=== PATIENT | female | born 1950 | race Two or more races ===

== ENCOUNTER 2019-10-27 13:36 | Outpatient (CLI) | payer OTHER, SELFPAY ==
--- NOTE | ~2019-10-27 | US_ITS ---
EXAMINATION: US renal BI DATE: 10/27/2019 14:37 INDICATION: Incontinence, kidney stones TECHNIQUE: Multiple grayscale and Doppler ultrasound images of the kidneys were obtained. COMPARISON: CT, 09/12/2019 FINDINGS: The right kidney measures 10.0 x 5.7 x 6.3 cm. The left kidney measures 11.3 x 5.7 x 6.8 cm and contains a 1.4 cm cyst. The kidneys demonstrate normal parenchymal echogenicity. There is no hyd ronephrosis. The bladder is normal. IMPRESSION: 1. Normal kidneys without hydronephrosis. Reviewed, dictated and finalized at location A. [facility]
== END 2019-10-27 13:37 | disposition home or self-care (01) ==
LOC: ANHIMG 13:42
PROVIDERS: PCP Student in an Organized Health Care Education/Training Program; Visit Provider Student in an Organized Health Care Education/Training Program
DX: R32 Unspecified urinary incontinence (principal); N20.0 Calculus of kidney
CPT/HCPCS: 76775

== ENCOUNTER 2019-10-27 14:51 | Outpatient (CLI) | payer OTHER, SELFPAY ==
--- NOTE | ~2019-10-27 | MM_ITS ---
EXAMINATION: MM screening skylar BI w kenia HISTORY: Screening mammogram TECHNIQUE: Craniocaudal and mediolateral oblique 3-D tomosynthesis images were obtained and synthetic 2-D images were generated. CAD analysis was submitted and interpreted. COMPARISON: Comparison to multiple prior studies sequentially, with oldest reviewed study dated 11/2015. BREAST PARENCHYMAL COMPOSITION: There are scattered areas of fibroglandular density. FINDINGS: There is no evidence of suspicious mass, calcification, or architectural distortion to sugg est malignancy in either breast. There has been no suspicious interval change. IMPRESSION: 1. No mammographic evidence of malignancy. 2. Recommend routine screening mammography in one year. BI-RADS Category 1: Negative Reviewed, dictated and finalized at location A. MENT MASON
== END 2019-10-27 14:52 | disposition home or self-care (01) ==
LOC: ANHIMG 14:55
PROVIDERS: PCP Student in an Organized Health Care Education/Training Program; Visit Provider Advanced Practice Midwife
DX: Z12.31 Encounter for screening mammogram for malignant neoplasm of breast (principal)
CPT/HCPCS: 76775; 77063; 77067

== ENCOUNTER 2019-11-24 12:54 | Outpatient (CLI) | payer OTHER, SELFPAY ==
--- NOTE | ~2019-11-24 | MR_ITS ---
EXAMINATION: MR lumbar spine wo con DATE: 11/24/2019 14:27 INDICATION: Chronic bilateral low back pain without sciatica. TECHNIQUE: Magnetic resonance imaging (MRI) of the lumbar spine was performed without intravenous con trast. Sequences included sagittal T2-weighted FSE, sagittal STIR FSE, sagittal T1-weighted FSE, and axial T2-weighted FSE. COMPARISON: Lumbar spine MRI 06/25/2015 FINDINGS: There is 7 degrees levocurvature of thoracolumbar spine. There is 3 mm anterolisthesis of L 3 on L4. There is severely decreased disc height from T10-T11 through L2-L3, moderately decreased dis c height at L3-L4, and severely decreased disc height at L5-S1. There is endplate remodeling at all l evels. The distal spinal cord signal intensity is normal. The conus medullaris is at L1-L2. The follo wing disc levels are specifically discussed: L1-L2: The disc is bulging. There is mild bilateral facet joint osteoarthritis. There is mild bilater al neural foraminal stenosis. There is mild central canal stenosis. L2-L3: The disc is bulging. There is mild bilateral facet joint osteoarthritis. There is mild bilater al neural foraminal stenosis. There is mild central canal stenosis. L3-L4: The disc is bulging and has an annular fissure. There is severe bilateral facet joint osteoart hritis. There is mild bilateral neural foraminal stenosis. There is mild central canal stenosis. L4-L5: The disc is bulging. There is mild right and moderate left facet joint osteoarthritis. There i s moderate bilateral neural foraminal stenosis. There is mild central canal stenosis. L5-S1: The disc is bulging and has an annular fissure. There is severe bilateral facet joint osteoart hritis. There is moderate bilateral neural foraminal stenosis. There is mild central canal stenosis. IMPRESSION: 1. Severe lumbar spondylosis, worsened from 06/25/2015. Reviewed, dictated and finalized at location A.
== END 2019-11-24 12:55 | disposition home or self-care (01) ==
PROVIDERS: PCP Student in an Organized Health Care Education/Training Program; Visit Provider Student in an Organized Health Care Education/Training Program
DX: M54.5 Low back pain (principal); G89.29 Other chronic pain; M47.816 Spondylosis without myelopathy or radiculopathy, lumbar region
CPT/HCPCS: 72148

== ENCOUNTER 2020-03-01 23:03 | Inpatient (IN) | payer OTHER, SELFPAY ==
--- NOTE | ~2020-03-01 | CT_ITS ---
EXAMINATION: CT abdomen pelvis w con DATE: 03/02/2020 01:31 INDICATION: Upper abdominal pain. Nausea. TECHNIQUE: Computed tomography (CT) of the abdomen and pelvis was performed with 100 mL Omnipaque-350 intravenous contrast. Automated exposure control and iterative reconstruction technique were employe d. The dose-length product was 991.56 mGy-cm. COMPARISON: 09/12/2019 FINDINGS: Respiratory motion which mildly limits evaluation at the lung bases and upper abdomen. Mild cardiomeg claire. No pericardial or pleural effusion. Gallbladder is surgically absent. Liver, spleen, bilateral adrenal glands and left kidney are normal. 5 mm low-attenuation cyst at the lower pole of the right k idney. Fatty atrophy of the pancreas. The appendix is not visualized. No pericecal inflammatory kurtz e to suggest acute appendicitis. There are a few diverticula predominantly along the descending colon without adjacent inflammatory change to suggest diverticulitis. No bowel obstruction. Calcified uter ine fibroids. Bladder and bilateral adnexa are unremarkable. No free intraperitoneal gas or fluid. No pathologically enlarged abdominal or pelvic lymphadenopathy. Tiny fat-containing umbilical hernia. S evere thoracolumbar spondylosis. Subcutaneous heterotopic ossification at both buttocks likely relate d to chronic fat necrosis. IMPRESSION: 1. No acute intra-abdominal/pelvic process. 2. Mild cardiomegaly. 3. Fibroid uterus. 4. Mild diverticulosis. Reviewed, dictated and finalized at location A.
[2020-03-01 23:03] VITALS: BP 123/97; PULSE 64; RESP 23; TEMP 36.4; O2SAT 98
[2020-03-01 23:21] LABS: Basophils Percent Auto 0.2 % (0.2-1.2); Eosinophils Absolute Auto 0.1 K/mm3 (0-0.3); Eosinophils Percent Auto 0.6 % (0-4.4); Hemoglobin 13.7 g/dL (12.0-15.0); Immature Granulocyte Absolute 0.06 K/mm3 (0.00-0.031); Immature Granulocyte Percent A 0.5 % (0-0.5); Lymphocytes Absolute Auto 1.93 K/mm3 (0.9-3.2); Lymphocytes Percent Auto 17.6 % (18.3-44.2); Mean Corpuscular HGB Conc 36.1 g/dl (32-36); Mean Corpuscular Hemoglobin 31.6 pg (26-34); Mean Corpuscular Volume 87.6 fl (80-100); Mean Platelet Volume 9.7 fl (7.4-10.4); Monocytes Absolute Auto 1.2 K/mm3 (0.1-0.6); Monocytes Percent Auto 10.6 % (2.6-8.5); Neutrophils Absolute Auto 7.7 K/mm3 (1.3-6.7); Neutrophils Percent Auto 70.5 % (45.5-73.1); Platelet Count Result 282 k/mm3 (150-375); Red Blood Count 4.34 M/mm3 (4.2-5.4); Red Cell Distribution Width 12.2 % (11.5-14.5)
[2020-03-01 23:33] LABS: Alanine Aminotransferase 25 U/L (4-35); Albumin Level 4.6 g/dL (3.5-5.1); Alkaline Phosphatase 91 U/L (38-126); Aspartate Amino Transferase 28 U/L (14-36); Bilirubin,Total 0.8 mg/dL (0.2-1.3); Blood Urea Nitrogen 8 mg/dL (7-17); Calcium 8.8 mg/dL (8.4-10.2); Carbon Dioxide 23 mmol/L (22-30); Chloride 87 mmol/L (98-107); Estimated Glomerular Filt Rate > 60; Glucose 132 mg/dL (65-105); Lipase 71 U/L (23-300); Potassium 3.3 mmol/L (3.4-5.0); Sodium 123 mmol/L (137-145)
[2020-03-01 23:42] LABS: Add Urine Microscopic? YES; Appearance Urine Clear (Clear); Bilirubin Urine Negative (Negative); Blood Urine 2+ (Negative); Color Urine Colorless (Yellow); Glucose Urine UA Negative (Negative); Ketones Urine Trace mg/dL (Negative); Leukocyte Esterase Ur Negative LEU/UL (Negative); Nitrate Urine Negative (Negative); Protein Urine Negative (Negative); Specific Grav Ur 1.006 (1.001-1.035); Urobilinogen Urine Negative mg/dL (<2.0); WBC Urine 0-3 /hpf
[2020-03-02] VITALS (13 sets, daily range): BP systolic 121–184; BP diastolic 48–87; PULSE 44–68; RESP 14–37; TEMP 36.1–36.8; O2SAT 96–99; BMI 33.3
--- NOTE | 2020-03-02 00:03 | ECG_ITS ---
Measurements Intervals [place] Rate: 57 P: 12 LA: 163 QRS: -38 QRSD: 102 T: 14 QT: 375 QTc: 366 Interpretive Statements SINUS BRADYCARDIA WITH SINUS ARRHYTHMIA LEFT AXIS DEVIATION VOLTAGE CRITERIA FOR LVH POOR R WAVE PROGRESSION, ANTERIOR LEADS NONSPECIFIC T-WAVE ABNORMALITY- INFERIOR LEADS BASELINE ARTIFACT- I, II, III, AVR, AVL, AVF BORDERLINE ECG Electronically Signed On 03-02-2020 8:10:39 CDT by Rome Koch D.O.
--- NOTE | 2020-03-02 00:04 | ED.ABDPAIN ---
HPI - Abdominal Pain General Chief Complaint: Abdominal Pain Stated Complaint: abd pain/ nausea Time Seen by Provider: 03/01/20 23:42 Source: patient and family Limitations: language barrier (mozambican) History of Present Illness HPI narrative: This patient is a 70 year old female who presents for evaluation of nausea, vomiting and epigastric abdominal pain. PAtient is Khmer and she does not speak Albanian so patient's son is at bedside translating. He states patient developed sudden onset epigastric abdominal pain. She has associated nausea, vomiting and weakness. He states patient is having difficulty moving because she so weak. They checked patient's blood pressure at home and it was elevated so they called 911. They also gave patient lisinopril 10 mg prior to arrival . She does not take medication normally. She denies chest pain. MD elicited complaint: abdominal pain Related Data Home Medications Medication Instructions Recorded Confirmed donepezil 10 mg PO DAILY 09/10/19 03/02/20 levothyroxine 100 mcg PO DAILY 09/10/19 03/02/20 omeprazole 40 mg PO DAILY 09/10/19 03/02/20 oxybutynin chloride 5 mg PO BID 09/10/19 03/02/20 promethazine 12.5 mg PO BID PRN 09/10/19 03/02/20 simvastatin 20 mg PO DAILY 09/10/19 03/02/20 Allergies Allergy/AdvReac Type Severity Reaction Status Date / Time No Known Allergies Allergy Unverified 09/12/19 20:22 Review of Systems Review of Systems: All systems reviewed & are unremarkable except as noted in HPI and below Constitutional: Constitutional: Denies chills and Denies fever(s) Cardiovascular: Cardiovascular: Denies chest pain Respiratory: Respiratory: Denies cough, Denies dyspnea and Denies wheezing Gastrointestinal: Gastrointestinal: Reports abdominal pain, Reports nausea and Reports vomiting Neurologic: Reports headache(s) [facility] Past Medical History Medical History (Updated 03/02/20 @ 05:32 by Orin Padron MD) Gall stones GERD (gastroesophageal reflux disease) Hyperlipidemia Hypothyroid Pain chronic back, shoulder, and neck pain Surgical History Surgical History (Updated 09/12/19 @ 21:32 by Olinda Shelley) Hx of cholecystectomy Social History Social History Smoking status: Never smoker Second hand tobacco smoke exposure: No Alcohol intake: never Substance use: never Gender identity (if verbalized by the patient): Female Spiritual care concerns: No Exam Const: General: alert and ill appearing Orientation/consciousness: patient oriented x3 Other: moderate distress. Patient appears to be shaking in pain and weak HENMT: Head: normocephalic and atraumatic Face and sinus: sinuses nontender and face symmetric Mouth: Yes Normal oral and palatal mucosa present and Yes lip normal Chest: Chest palpation & inspection: normal inspection of the chest Resp: Effort & Inspection: normal respiratory effort, no retractions and no use of accessory muscles Auscultation: clear to auscultation bilaterally Cardio: Rate: regular rate Rhythm: regular rhythm Heart sounds: no murmurs GI: Inspection: non-distended GI Palp: Yes Soft to palpation, Yes Tenderness to palpation present (GI) (epigastric and bilateral upper quadrant), No Guarding due to palpation present (GI) and No Rigid due to palpation Skin: General skin exam: normal color Rashes: no rashes Neuro: General: patient oriented x3, moves all extremities and CN's II-XI intact bilaterally Motor exam (neuro): Pronator motor function not present Sensory Exam: normal sensation Course Consultations Consultation #1: I discussed case with Dr. Taylor who accepts patient. He states to make patient NPO. Date: 03/02/20 Time: 02:30 Vital Signs Vital signs: Vital Signs Temperature 97.6 F 03/01/20 23:03 Pulse Rate 64 03/01/20 23:03 Respiratory Rate 23 H 03/01/20 23:03 Blood Pressure 123/97 H 03/01/20 23:03 Pulse Oximetr
[2020-03-02] MEDS: ONDANSETRON INJ 4 MG/2 ML VIAL IV PUSH ×5 (00:11→21:45)
[2020-03-02] MEDS: SODIUM CHLORIDE 0.9% IV 1,000 ML 999 ML IV CONT (00:11)
[2020-03-02] MEDS: MORPHINE SULFATE 4 MG/ML INJ IV PUSH (00:11)
--- NOTE | 2020-03-02 00:11 | PC.NURSE ---
P o2 saturation dropped pt placed on 2L NC by edp.
[2020-03-02 00:43] LABS: Lactic Acid Reflex 1.1 mmol/L (0.7-2.1)
[2020-03-02 00:55] LABS: Troponin I < 0.012 ng/mL (0.000-0.034)
--- NOTE | 2020-03-02 02:24 | PC.NURSE ---
Signed patient over. Report to BASIL Hickey
--- NOTE | 2020-03-02 02:31 | PC.NURSE ---
Pt O2 dropped to 77% pt placed on 2L. EDP notified.
--- NOTE | 2020-03-02 03:40 | PC.NURSE ---
This patient, Mala Simpson, was admitted to 2 Medical Room 241-. Patient/family oriented to hospital policies and general routines including ID bracelet, bed and alarms, visiting hours, pain management, procedures, bathroom and other care routines, personal items, smoking policy, room service/diet, and visiting hours. Valuables list has been completed. Information on how to activate the Rapid Response Team has been discussed. Patient/Family are encouraged to report perceived risks to care and to ask questions if they do not understand what they are told or what they should do.
--- NOTE | 2020-03-02 04:32 | ECG_ITS ---
Measurements Intervals [place] Rate: 54 P: 9 VA: 171 QRS: -38 QRSD: 102 T: -5 QT: 459 QTc: 435 Interpretive Statements SINUS BRADYCARDIA ATRIAL PREMATURE COMPLEX LEFT AXIS DEVIATION VOLTAGE CRITERIA FOR LVH BORDERLINE T WAVE ABNORMALITY- ANT/INF LEADS BASELINE ARTIFACT- I, II, AVR BORDERLINE ECG Electronically Signed On 03-02-2020 8:12:13 CDT by Rome Koch D.O.
[2020-03-02] MEDS: SODIUM CHLORIDE 0.9% IV 1,000 ML 100 ML IV CONT ×2 (05:01→15:02)
--- NOTE | 2020-03-02 05:34 | PM.IMHP ---
H&P: HPI History of Present Illness Chief complaint: hyponatremia, intractable abdominal pain <Hector Taylor MD - Last Filed: 03/02/20 19:21> Narrative: This is a 70 year old female with known to have GERD and hypothyroidism who presented to the hospital this evening with severe epigastric pain, nausea, and vomiting. The patient relates that her abdominal pain has been ongoing since yesterday. Her abdominal pain worsens with any food or fluid intake. The patient's last endoscopy was over 10 years ago. She denies any history of peptic ulcer disease but she is known to have GERD. On arrival to the hospital the patient was treated for her severe abdominal pain and routine labs were obtained and demonstrated a serum sodium of 123. The patient has no previous history of hyponatremia. She is not on any diuretics. CT abd/pelvis was virtually unremarkable. The patient denies any diarrhea, rectal bleeding, chest pain or fevers. She continues to have nausea and vomiting during my encounter with her. NO other complaints at this time. <Hector Taylor MD - Last Filed: 03/02/20 19:21> Review of Systems Review of Systems: All systems reviewed & are unremarkable except as noted in HPI and below <Hector Taylor MD - Last Filed: 03/02/20 19:21> [facility] Past Medical History Medical History: Medical History Gall stones GERD (gastroesophageal reflux disease) Hyperlipidemia Hypothyroid Pain chronic back, shoulder, and neck pain PUD (peptic ulcer disease) <Hector Taylor MD - Last Filed: 03/02/20 19:21> Surgical History Surgical History: Surgical History Hx of cholecystectomy <Hector Taylor MD - Last Filed: 03/02/20 19:21> Social History Social History: Social History Smoking status: Never smoker Second hand tobacco smoke exposure: No Alcohol intake: never Substance use: never Gender identity (if verbalized by the patient): Female Spiritual care concerns: No <Hector Taylor MD - Last Filed: 03/02/20 19:21> Comments Family medical history reviewed and noncontributory. <Hector Taylor MD - Last Filed: 03/02/20 19:21> Meds Home Medications and Allergies Home medications: Home Medications Medication Instructions Recorded Confirmed Type donepezil 10 mg PO DAILY 09/10/19 03/02/20 History levothyroxine 100 mcg PO DAILY 09/10/19 03/02/20 History omeprazole 40 mg PO DAILY 09/10/19 03/02/20 History oxybutynin chloride 5 mg PO BID 09/10/19 03/02/20 History promethazine 12.5 mg PO BID PRN 09/10/19 03/02/20 History simvastatin 20 mg PO DAILY 09/10/19 03/02/20 History <Hector Taylor MD - Last Filed: 03/02/20 19:21> Allergies/Adverse reactions: Allergies Allergy/AdvReac Type Severity Reaction Status Date / Time No Known Allergies Allergy Unverified 09/12/19 20:22 <Hector Taylor MD - Last Filed: 03/02/20 19:21> Vital Signs Vital Signs - 24 hr 03/01/20 23:03 03/02/20 00:00 03/02/20 01:00 Temperature 36.4 C Pulse Rate 64 68 56 L Respiratory Rate 23 H 37 H 30 H Blood Pressure 123/97 H 180/87 H 146/72 H Pulse Oximetry 98 99 98 03/02/20 02:19 03/02/20 02:49 03/02/20 03:30 Temperature 36.4 C 36.4 C Pulse Rate 52 L 57 L Respiratory Rate 25 H 14 Blood Pressure 143/65 H 151/75 H Pulse Oximetry 97 99 03/02/20 04:00 Temperature 36.1 C L Pulse Rate 59 L Respiratory Rate 16 Blood Pressure 175/78 H Pulse Oximetry 96 <Hector Taylor MD - Last Filed: 03/02/20 19:21> Exam Const: General: cooperative, alert, awake, in distress moderate and anxious <Hector Taylor MD - Last Filed: 03/02/20 19:21> Nutritional Appearance: well nourished <Hector Taylor MD - Last Filed: 03/02/20 19:21> Orientation/consciousness: patient oriented x3 <Hector Taylor MD - Last Filed: 03/02/20 19:21> H
[2020-03-02 06:33] LABS: Blood Urea Nitrogen 9 mg/dL (7-17); Calcium 8.6 mg/dL (8.4-10.2); Carbon Dioxide 26 mmol/L (22-30); Chloride 90 mmol/L (98-107); Estimated CRCL calculation 96 ml/min; Estimated Glomerular Filt Rate > 60; Glucose 127 mg/dL (65-105); Potassium 3.2 mmol/L (3.4-5.0); Sodium 124 mmol/L (137-145)
[2020-03-02] MEDS: PANTOPRAZOLE SODIUM IV 40 MG VIAL IV PUSH ×2 (08:16→20:00)
--- NOTE | 2020-03-02 09:36 | WPDGICN ---
Assessment and Plan Assessment and plan (1) Nausea and vomiting: Code(s): R11.2 - Nausea with vomiting, unspecified <Selma Gambino APRN - Last Filed: 03/02/20 14:16> Status: Acute <Selma Gambino APRN - Last Filed: 03/02/20 14:16> Assessment and Plan: Increase protonix to BID Add Reglan 5 mg scheduled every AC and HS n/v control and increase motility She will need EGD wednesday Advance diet to clears when tolerated <Selma Gambino APRN - Last Filed: 03/02/20 14:16> (2) Intractable epigastric abdominal pain: Code(s): R10.13 - Epigastric pain <Selma Gambino SALES COMMUNICATIONS MANAGER - Last Filed: 03/02/20 14:16> Status: Acute <Selma Gambino APRN - Last Filed: 03/02/20 14:16> Assessment and Plan: Concerned for PUD, will need to rule out h.pylori as well during EGD <Selma Gambino APRN - Last Filed: 03/02/20 14:16> (3) GERD (gastroesophageal reflux disease): Qualifiers: Esophagitis presence: esophagitis presence not specified Qualified Code(s): K21.9 - Gastro-esophageal reflux disease without esophagitis <Selma Gambino APRN - Last Filed: 03/02/20 14:16> Code(s): K21.9 - Gastro-esophageal reflux disease without esophagitis <Selma FunezBen Immanuel, SALES COMMUNICATIONS MANAGER - Last Filed: 03/02/20 14:16> Status: Chronic <Selma Gambino APRN - Last Filed: 03/02/20 14:16> Assessment and Plan: Increase PPI BID <Selma FunezBen ImmanuelTITA mesaN - Last Filed: 03/02/20 14:16> Additional Plan I have personally seen and examined the patient and agree with the note above. Case discussed with the patient and son Joe. Abdomen soft/NT. Will increase PPI to BID and add Reglan. Plan for EGD Wednesday. The procedure of EGD, its indications, alternatives and risks including perforation, bleed, infection and rx to meds reviewed. Patient and son voice understanding and agree to proceed. <Tarun Munguia MD - Last Filed: 03/02/20 14:28> GI Consult Note Consult date/time: 03/02/20 09:36 <Selma Gambino APRN - Last Filed: 03/02/20 14:16> HPI: Mala Simpson is a 70 year old female presented to ED for epigastric abdominal pain described as heaviness along with nausea and vomiting that began morning the day of admission. Her son is at bedside translating for her due to her not speaking greek. She said that anything liquid or solid she would vomit up. They tried pepto bismol and sprite with no relief of symptoms. She does report worsening acid reflux over the last 10 days and recently a bad taste in her mouth. She does report EGD around 4-5 years ago with her GI, Dr. Membreno and believes she may of had ulcers. They do believe she had an infection? in her stomach before and took antibiotics. She denies any NSAID use. She denies diarrhea, constipation, melena, hematochezia. She is not on any blood thinners. Her gallbladder was removed 25 years ago. She denies any recent travel out of the country or ill contacts. She has never had symptoms like this before in the past. Labs on admission showed hypokalemia and hyponatremia. CT abd/pelvis was done but limited due to motion and per ER note maybe showed possible colon and intestinal wall thickening but i have not seen the report. LFT are normal <Selma Gambino APRN - Last Filed: 03/02/20 14:16> Review of Systems Review of Systems: All systems reviewed & are unremarkable except as noted in HPI and below <Selma Gambino APRN - Last Filed: 03/02/20 14:16> Gastrointestinal: Gastrointestinal: Reports as per HPI <Selma Gambino APRN - Last Filed: 03/02/20 14:16> [facility] Past Medical History Medical History: Medical History (Updated 03/02/20 @ 09:42 by Selma Gambino APRN) Gall stones GERD (gastroesophageal reflux disease) Hyperlipidemia Hypothyroid Pain chronic back, shoulder, and neck pain PUD (peptic ulcer disease) <Selma Gambino APRN - Last Filed: 03/02/20 14:16> Surgical History
[2020-03-02 12:30] LABS: Blood Urea Nitrogen 11 mg/dL (7-17); Calcium 8.4 mg/dL (8.4-10.2); Carbon Dioxide 26 mmol/L (22-30); Chloride 92 mmol/L (98-107); Estimated CRCL calculation 79 ml/min; Estimated Glomerular Filt Rate > 60; Glucose 107 mg/dL (65-105); Potassium 3.7 mmol/L (3.4-5.0); Sodium 126 mmol/L (137-145)
[2020-03-02 14:53] LABS: Sodium Urine Random 14 meq/L
--- NOTE | 2020-03-02 17:07 | PM.IMPN ---
Progress Note: A&P Assessment and Plan (1) Intractable epigastric abdominal pain: Code(s): R10.13 - Epigastric pain Status: Acute Assessment and Plan: r/o PUD, dyspepsia, GERD - NPO, PRN antiemetics, Continue pain control w/ IV narcotics. Continue PPI therapy IV. With b.i.d. Protonix GI is seen and plans for endoscopy 03/04. (2) Hyponatremia: Code(s): E87.1 - Hypo-osmolality and hyponatremia Status: Acute Assessment and Plan: Light IV hydration w/ NS. Check urine sodum and urine osmolality. TSH is normal and suspect with decreased chloride potassium that it is all secondary to dehydration with free water replacement. Should correct with the saline infusion slowly (3) Hyperlipidemia: Qualifiers: Hyperlipidemia type: unspecified Qualified Code(s): E78.5 - Hyperlipidemia, unspecified Code(s): E78.5 - Hyperlipidemia, unspecified Status: Chronic Assessment and Plan: Resume simvastatin when possible. (4) GERD (gastroesophageal reflux disease): Qualifiers: Esophagitis presence: esophagitis presence not specified Qualified Code(s): K21.9 - Gastro-esophageal reflux disease without esophagitis Code(s): K21.9 - Gastro-esophageal reflux disease without esophagitis Status: Chronic Assessment and Plan: Continue IV PPI therapy. And increase to b.i.d. (5) Hypothyroid: Qualifiers: Hypothyroidism type: unspecified Qualified Code(s): E03.9 - Hypothyroidism, unspecified Code(s): E03.9 - Hypothyroidism, unspecified Status: Chronic Assessment and Plan: We will switch levothyroxine to IV form. As stated TSH is normal Subjective Date/time seen: 03/02/20 17:07 Interval history: Date of visit 03/02 70-year-old female with mild dementia hypothyroidism and hyperlipidemia admitted with nausea and vomiting abdominal discomfort of 1 weeks duration. No fever no chills no hematemesis. CT of the abdomen unremarkable the patient found to have sodium 123 and admitted for evaluation. Patient does not speaking lesion patient's son was there to interpret. He does relate with her not eating well she has been drinking copious amounts of water this past week. Exam Narrative: Exam Narrative: Blood pressure 120/50 pulse is 56 and regular afebrile Pupils equal and reactive to light sclera anicteric Lungs clear CV regular rate rhythm Abdomen is soft tender in epigastric area with slightly decreased bowel sounds possibly slightly distended and no rebound or guarding Extremities without edema distal pulses 2+ Neuro alert no obvious focal deficits Objective Data Vital Signs Vital Signs: Vital Signs - 24 hr 03/01/20 23:03 03/02/20 00:00 03/02/20 01:00 Temperature 36.4 C Pulse Rate 64 68 56 L Respiratory Rate 23 H 37 H 30 H Blood Pressure 123/97 H 180/87 H 146/72 H Pulse Oximetry 98 99 98 03/02/20 02:19 03/02/20 02:49 03/02/20 03:30 Temperature 36.4 C 36.4 C Pulse Rate 52 L 57 L Respiratory Rate 25 H 14 Blood Pressure 143/65 H 151/75 H Pulse Oximetry 97 99 03/02/20 04:00 03/02/20 08:00 03/02/20 09:02 Temperature 36.1 C L 36.4 C L Pulse Rate 59 L 44 L 58 L Respiratory Rate 16 19 Blood Pressure 175/78 H 184/71 H Pulse Oximetry 96 99 03/02/20 12:00 03/02/20 14:00 Temperature 36.3 C L Pulse Rate 61 50 L Respiratory Rate 16 Blood Pressure 121/48 L Pulse Oximetry 98 Intake/Output Intake/Output: Intake & Output 02/28/20 02/29/20 03/01/20 03/02/20 23:59 23:59 23:59 23:59 Intake Total 2200 Output Total 200 Balance 2000 Meds/Results Medications: Active Medications Generic Name Dose Route Start Last Admin Trade Name Ziggyq PRN Reason Stop Dose Admin Sodium Chloride 1,000 mls @ 100 mls/hr 03/02/20 02:40 03/02/20 15:02 Normal Saline Iv IV CONT 100 mls/hr .Q10H LOS Administration Acetaminophen 1,000 mg in 100 mls @ 400 mls/hr 03/02/20 10:00 03/02/20 15:3
[2020-03-02] MEDS: METOCLOPRAMIDE HCL INJ 10 MG/2 ML VIAL 5 MG IV PUSH (17:21)
[2020-03-02 17:37] LABS: Blood Urea Nitrogen 9 mg/dL (7-17); Calcium 8.7 mg/dL (8.4-10.2); Carbon Dioxide 25 mmol/L (22-30); Chloride 96 mmol/L (98-107); Estimated CRCL calculation 79 ml/min; Estimated Glomerular Filt Rate > 60; Glucose 130 mg/dL (65-105); Potassium 3.7 mmol/L (3.4-5.0); Sodium 128 mmol/L (137-145)
[2020-03-02] MEDS: OXYBUTYNIN CHLORIDE 5 MG TABLET PO (22:44)
[2020-03-03] VITALS (13 sets, daily range): BP systolic 96–153; BP diastolic 46–71; PULSE 49–74; RESP 16–20; TEMP 36.7–36.8; O2SAT 97–100
[2020-03-03] MEDS: METOCLOPRAMIDE HCL INJ 10 MG/2 ML VIAL 5 MG IV PUSH ×4 (00:14→20:43)
[2020-03-03] MEDS: SODIUM CHLORIDE 0.9% IV 1,000 ML 100 ML IV CONT (00:16)
[2020-03-03 04:48] LABS: Basophils Percent Auto 0.5 % (0.2-1.2); Eosinophils Absolute Auto 0.1 K/mm3 (0-0.3); Eosinophils Percent Auto 1.3 % (0-4.4); Hematocrit 37.5 % (37.0-47.0); Hemoglobin 12.9 g/dL (12.0-15.0); Immature Granulocyte Absolute 0.06 K/mm3 (0.00-0.031); Lymphocytes Absolute Auto 1.32 K/mm3 (0.9-3.2); Mean Corpuscular HGB Conc 34.4 g/dl (32-36); Mean Corpuscular Hemoglobin 31.5 pg (26-34); Mean Corpuscular Volume 91.5 fl (80-100); Mean Platelet Volume 10.2 fl (7.4-10.4); Monocytes Absolute Auto 0.8 K/mm3 (0.1-0.6); Monocytes Percent Auto 12.1 % (2.6-8.5); Neutrophils Percent Auto 64.1 % (45.5-73.1); Platelet Count Result 286 k/mm3 (150-375); Red Cell Distribution Width 12.7 % (11.5-14.5); White Blood Count 6.3 K/mm3 (4.5-10.0)
[2020-03-03 04:59] LABS: Alanine Aminotransferase 49 U/L (4-35); Albumin Level 3.7 g/dL (3.5-5.1); Alkaline Phosphatase 79 U/L (38-126); Aspartate Amino Transferase 35 U/L (14-36); Bilirubin,Total 0.6 mg/dL (0.2-1.3); Blood Urea Nitrogen 9 mg/dL (7-17); Calcium 8.6 mg/dL (8.4-10.2); Carbon Dioxide 25 mmol/L (22-30); Chloride 103 mmol/L (98-107); Estimated CRCL calculation 67 ml/min; Estimated Glomerular Filt Rate > 60; Glucose 105 mg/dL (65-105); Potassium 3.6 mmol/L (3.4-5.0); Sodium 135 mmol/L (137-145)
[2020-03-03] MEDS: DEXTROSE 5%/0.45% SOD CHL 1,000 ML 75 ML IV CONT (08:03)
[2020-03-03] MEDS: PANTOPRAZOLE SODIUM IV 40 MG VIAL IV PUSH (08:06)
[2020-03-03] MEDS: OXYBUTYNIN CHLORIDE 5 MG TABLET PO ×2 (08:06→20:43)
--- NOTE | 2020-03-03 10:06 | WPDGIPROGNO ---
Progress Note: A&P Assessment and Plan (1) Nausea and vomiting: Code(s): R11.2 - Nausea with vomiting, unspecified <Selma GloverKING mesa - Last Filed: 03/03/20 10:30> Status: Acute <Selma GambinoKING - Last Filed: 03/03/20 10:30> Assessment and Plan: Continue Reglan scheduled every 6 hours PPI BID <Selma GloverTITA mesaN - Last Filed: 03/03/20 10:30> (2) GERD (gastroesophageal reflux disease): Qualifiers: Esophagitis presence: esophagitis presence not specified Qualified Code(s): K21.9 - Gastro-esophageal reflux disease without esophagitis <Selma GloverKING mesa - Last Filed: 03/03/20 10:30> Code(s): K21.9 - Gastro-esophageal reflux disease without esophagitis <Selma FunezBen Gambino APRN - Last Filed: 03/03/20 10:30> Status: Chronic <Selma GloverKING mesa - Last Filed: 03/03/20 10:30> Assessment and Plan: PPI BID <Selma GloverTITA mesaN - Last Filed: 03/03/20 10:30> (3) Intractable epigastric abdominal pain: Code(s): R10.13 - Epigastric pain <Selma GambinoKING - Last Filed: 03/03/20 10:30> Status: Acute <Selma FunezBen ImmanuelKING mesa - Last Filed: 03/03/20 10:30> Assessment and Plan: Continue PPI and Reglan <Selma FunezBen ImmanuelTITA mesaN - Last Filed: 03/03/20 10:30> (4) Complaint of melena: Code(s): K92.1 - Melena <Selma FunezBen Gambino APRN - Last Filed: 03/03/20 10:30> Status: Acute <Selma FunezBen ImmanuelKING mesa - Last Filed: 03/03/20 10:30> Assessment and Plan: Monitor H&H q 6 h. Transfuse if needed If continued melena stools as documented by nurse please let Dr. Munguia know Will plan for EGD tomorrow-will do sooner if needed NPO after midnight <Selma Gambino APRN - Last Filed: 03/03/20 10:30> Additional Plan I have personally seen and examined this patient and agree with the above note. Feels better. VSS soft/NT Hct 38. Assessment and Plan A. Nausea and vomiting: - Improved on Reglan scheduled every 6 hours; continue - PPI BID B. GERD: - PPI BID - Intractable epigastric abdominal pain C. Possible melena: - Hct 38 - EGD - Follow H+H - Transfuse if needed AB Gloria [phone] <Tarun Munguia MD - Last Filed: 03/03/20 18:03> Subjective Date/time seen: 03/03/20 10:06 Nausea and vomiting has improved per patient and her son at bedside who is translating for her. They do report she had a dark almost black stool this AM and she is having some epigastric/ruq pain after eating jello this AM. Overall she reports she is feeling better than yesterday <Selma Gambino APRN - Last Filed: 03/03/20 10:30> Review of Systems Review of Systems: All systems reviewed & are unremarkable except as noted in HPI and below <Selma Gambino APRN - Last Filed: 03/03/20 10:30> Gastrointestinal: Gastrointestinal: Reports as per HPI <Selma Gambino APRN - Last Filed: 03/03/20 10:30> Exam Const: General: cooperative, healthy appearing, comfortable, no acute distress and awake <Selma Gambino APRN - Last Filed: 03/03/20 10:30> Orientation/consciousness: patient oriented x3 <Selma Gambino APRN - Last Filed: 03/03/20 10:30> Resp: Effort & Inspection: normal respiratory effort <Selma Gambino APRN - Last Filed: 03/03/20 10:30> Auscultation: clear to auscultation bilaterally <Selma Gambino APRN - Last Filed: 03/03/20 10:30> Cardio: Rate: regular rate <Slema Gambino APRN - Last Filed: 03/03/20 10:30> Rhythm: regular rhythm <Selma Gambino APRN - Last Filed: 03/03/20 10:30> Heart sounds: S1 normal heart sound present, S2 normal heart sound present, no gallops, no murmurs and no rubs <Selma Gambino APRN - Last Filed: 03/03/20 10:30> GI: Inspection: normal to inspection <Selma Gambino APRN - Last Filed: 03/03/20 10:30> GI Palp: No abdominal tenderness, Yes Soft to palpation and No Hepatosplenomegaly present <Selma Gambino APRN
[2020-03-03 14:10] LABS: Hematocrit 38.1 % (37.0-47.0); Hemoglobin 13.3 g/dL (12.0-15.0)
[2020-03-03 14:24] LABS: Blood Urea Nitrogen 7 mg/dL (7-17); Calcium 8.5 mg/dL (8.4-10.2); Carbon Dioxide 24 mmol/L (22-30); Chloride 104 mmol/L (98-107); Estimated CRCL calculation 79 ml/min; Estimated Glomerular Filt Rate > 60; Glucose 114 mg/dL (65-105); Potassium 3.3 mmol/L (3.4-5.0); Sodium 135 mmol/L (137-145)
--- NOTE | 2020-03-03 16:34 | PM.IMPN ---
Progress Note: A&P Assessment and Plan (1) Intractable epigastric abdominal pain: Code(s): R10.13 - Epigastric pain Status: Acute Assessment and Plan: r/o PUD, dyspepsia, GERD - NPO, PRN antiemetics, Continue pain control w/ IV narcotics. Continue PPI therapy IV. With b.i.d. Protonix GI is seen and plans for endoscopy today (2) Hyponatremia: Code(s): E87.1 - Hypo-osmolality and hyponatremia Status: Acute Assessment and Plan: Light IV hydration w/ NS. . TSH is normal and suspect with decreased chloride and potassium that it is all secondary to dehydration with free water replacement. corrected with the saline infusion with Na at 135(12 meq rise over 18 hrs) Will change to .45 NS and follow Na (3) Hyperlipidemia: Qualifiers: Hyperlipidemia type: unspecified Qualified Code(s): E78.5 - Hyperlipidemia, unspecified Code(s): E78.5 - Hyperlipidemia, unspecified Status: Chronic Assessment and Plan: Resume simvastatin when possible. (4) GERD (gastroesophageal reflux disease): Qualifiers: Esophagitis presence: esophagitis presence not specified Qualified Code(s): K21.9 - Gastro-esophageal reflux disease without esophagitis Code(s): K21.9 - Gastro-esophageal reflux disease without esophagitis Status: Chronic Assessment and Plan: Continue IV PPI therapy. b.i.d. (5) Hypothyroid: Qualifiers: Hypothyroidism type: unspecified Qualified Code(s): E03.9 - Hypothyroidism, unspecified Code(s): E03.9 - Hypothyroidism, unspecified Status: Chronic Assessment and Plan: We will switch levothyroxine to IV form. As stated TSH is normal Subjective Date/time seen: 03/03/20 16:34 Interval history: Date of visit 03/03 70-year-old female with mild dementia hypothyroidism and hyperlipidemia admitted with nausea and vomiting abdominal discomfort of 1 weeks duration. No fever no chills no hematemesis. CT of the abdomen unremarkable the patient found to have sodium 123 and admitted for evaluation. Patient does not speak turkmen. Son does relate with her not eating well she has been drinking copious amounts of water this past week prior to admission Smiling today and feels better. Exam Narrative: Exam Narrative: Blood pressure 140/60 pulse is 58 and regular afebrile Pupils equal and reactive to light sclera anicteric Lungs clear CV regular rate rhythm Abdomen is soft tender in epigastric area and RUQ, with slightly decreased bowel sounds possibly slightly distended and no rebound or guarding Extremities without edema distal pulses 2+ Neuro alert no obvious focal deficits Objective Data Vital Signs Vital Signs: Vital Signs - 24 hr 03/02/20 20:00 03/02/20 22:00 03/03/20 00:00 Temperature 36.8 C Pulse Rate 59 L 62 74 Respiratory Rate 18 Blood Pressure 161/64 H Pulse Oximetry 98 03/03/20 02:30 03/03/20 04:00 03/03/20 06:00 Temperature 36.8 C Pulse Rate 67 52 L 56 L Respiratory Rate 20 Blood Pressure 149/69 H 113/71 Pulse Oximetry 100 97 03/03/20 08:00 03/03/20 12:00 03/03/20 14:00 Temperature 36.7 C Pulse Rate 71 49 L 58 L Respiratory Rate 16 Blood Pressure 141/63 H Pulse Oximetry 97 03/03/20 16:00 Temperature Pulse Rate 56 L Respiratory Rate Blood Pressure Pulse Oximetry Intake/Output Intake/Output: Intake & Output 02/29/20 03/01/20 03/02/20 03/03/20 23:59 23:59 23:59 23:59 Intake Total 3060 1965 Output Total 1075 400 Balance 1985 1565 Meds/Results Medications: Active Medications Generic Name Dose Route Start Last Admin Trade Name Freq PRN Reason Stop Dose Admin Dextrose/Sodium Chloride 1,000 mls @ 75 mls/hr 03/03/20 06:55 03/03/20 08:03 Dextrose 5% Sodium Chloride 0.45% IV CONT 75 mls/hr .[id number] LOS Administration Potassium Chloride 500 mls @ 125 mls/hr 03/03/20 16:31 Kcl 40 Meq/D5w 500 Ml Peripheral I
--- NOTE | 2020-03-03 17:25 | PC.NURSE ---
Patient to GI lab per stretcher. Son at bedside.
--- NOTE | 2020-03-03 17:28 | WPDANESEPP ---
Anes - Eval Pre Procedure Procedure: Operation Date: 03/03/20 17:20 Proposed Procedures p Esophagogastroduodenoscopy - Tarun Munguia MD Date/Time: 03/03/20 17:28 Surgeon: nanda Pre Op Diagnosis: hyponatremia, intractable abdominal pain Patient Data Age: 70 Gender: F Height: 1.52 m Weight: 77.5 kg Last Vital Signs Temp 36.7 C 03/03/20 14:00 Pulse 56 L 03/03/20 16:00 Resp 16 03/03/20 14:00 BP 141/63 H 03/03/20 14:00 Pulse Ox 97 03/03/20 14:00 Allergies Allergy/AdvReac Type Severity Reaction Status Date / Time No Known Allergies Allergy Unverified 09/12/19 20:22 Home Medications Medication Instructions Recorded Confirmed Type donepezil 10 mg PO DAILY 09/10/19 03/02/20 History levothyroxine 100 mcg PO DAILY 09/10/19 03/02/20 History omeprazole 40 mg PO DAILY 09/10/19 03/02/20 History oxybutynin chloride 5 mg PO BID 09/10/19 03/02/20 History promethazine 12.5 mg PO BID PRN 09/10/19 03/02/20 History simvastatin 20 mg PO DAILY 09/10/19 03/02/20 History Laboratory Tests 03/02/20 03/03/20 03/03/20 17:18 04:15 04:15 WBC 6.3 K/mm3 K/mm3 (4.5-10.0) RBC 4.10 M/mm3 L M/mm3 (4.2-5.4) Hgb 12.9 g/dL g/dL (12.0-15.0) Hct 37.5 % % (37.0-47.0) MCV 91.5 fl fl (80-100) MCH 31.5 pg pg (26-34) MCHC 34.4 g/dl g/dl (32-36) RDW 12.7 % % (11.5-14.5) Plt Count 286 k/mm3 k/mm3 (150-375) MPV 10.2 fl fl (7.4-10.4) Immature Gran % (Auto) 1.0 % H % (0-0.5) Neut % (Auto) 64.1 % % (45.5-73.1) Lymph % (Auto) 21.0 % % (18.3-44.2) Barron % (Auto) 12.1 % H % (2.6-8.5) Eos % (Auto) 1.3 % % (0-4.4) Baso % (Auto) 0.5 % % (0.2-1.2) Lymph # (Auto) 1.32 K/mm3 K/mm3 (0.9-3.2) Barron # (Auto) 0.8 K/mm3 H K/mm3 (0.1-0.6) Eos # (Auto) 0.1 K/mm3 K/mm3 (0-0.3) Baso # (Auto) 0.0 K/mm3 K/mm3 (0.0-0.1) Abs Immat Gran (auto) 0.06 K/mm3 H K/mm3 (0.00-0.031) Absolute Neuts (auto) 4.0 K/mm3 K/mm3 (1.3-6.7) Absolute Nucleated RBC 0.0 K/mm3 K/mm3 (0.0-0.012) Nucleated RBC % 0.0 % % (0.0-0.2) Sodium 128 mmol/L L mmol/L 135 mmol/L L mmol/L (137-145) (137-145) Potassium 3.7 mmol/L mmol/L 3.6 mmol/L mmol/L (3.4-5.0) (3.4-5.0) Chloride 96 mmol/L L mmol/L 103 mmol/L mmol/L (98-107) (98-107) Carbon Dioxide 25 mmol/L mmol/L 25 mmol/L mmol/L (22-30) (22-30) BUN 9 mg/dL mg/dL 9 mg/dL mg/dL (7-17) (7-17) Creatinine 0.50 mg/dL L mg/dL 0.60 mg/dL L mg/dL (0.7-1.0) (0.7-1.0) Estim Creat Clear Calc 79 ml/min ml/min 67 ml/min ml/min Estimated GFR > 60 > 60 (59 - ) (59 - ) Glucose 130 mg/dL H mg/dL 105 mg/dL mg/dL (65-105) (65-105) Calcium 8.7 mg/dL mg/dL 8.6 mg/dL mg/dL (8.4-10.2) (8.4-10.2) Total Bilirubin 0.6 mg/dL mg/dL (0.2-1.3) AST 35 U/L U/L (14-36) ALT 49 U/L H U/L (4-35) Alkaline Phosphatase 79 U/L U/L (38-126) Total Protein 6.0 g/dL L g/dL (6.3-8.2) Albumin 3.7 g/dL g/dL (3.5-5.1) 03/03/20 03/03/20 13:54 13:54 WBC RBC Hgb 13.3 g/dL g/dL (12.0-15.0) Hct 38.1 % % (37.0-47.0) MCV MCH MCHC RDW Plt Count MPV Immature Gran % (Auto) Neut % (Auto) Lymph % (Auto) Barron % (Auto) Eos % (Auto) Baso % (Auto) Lymph # (Auto) Barron # (Auto) Eos # (Auto) Baso # (Auto) Abs Immat Gran (auto) Absolute Neuts (auto) Absolute Nucleated RBC Nucleated RBC % Sodium 135 mmol/L L mmol/L (137-145) Potassium 3.3 mmol/L L mmol/L (3.4-5.0) Chloride 104 mmol/L mmo
[2020-03-03] MEDS: LACTATED RINGERS 1,000 ML 100 ML IV CONT (17:48)
--- NOTE | 2020-03-03 17:49 | P.PNAN_ITS ---
Anes - Eval Final PreProcedure Day of Procedure 03/03/20 17:49 Patient weight: obese Heart: regular rate and rhythm Lungs: clear to auscultation and normal air movement Airway: Mallampati scale class II Neurological: alert and oriented Last oral intake: >/= 8 hours ASA classification: III Emergent: no Anesthetic plan: proceed Anesthesia type and monitoring: general GIVS Informed Consent: The patient's anesthetic plan and its attendant risks and b enefits were discussed with the patient/family/POA. Questions were solicited and answers provided to the satisfaction of the patient/family/POA.
--- NOTE | 2020-03-03 18:04 | P.OPB_ITS ---
Procedure Note - Brief Procedure Note - Brief Date of procedure: 03/03/20 Pre-op diagnosis: hyponatremia, intractable abdominal pain Procedure performed: Nausea/vomiting Description of procedure: EGD Implants: None Anesthesia: MAC Surgeon: Tarun Munguia MD Refrigeration Systems Installer: None Estimated blood loss (mL): 0 Pathology: none sent Complications: No immediate complications Condition: stable Disposition: floor Findings: INDICATION: GERD, nausea, vomiting, epigastric pain, melena. POST-OP: Normal. SEDATION: Per anesthesia With the patient in the left lateral decubitus position, the Excelimmuneinon upper endoscope was used to easily intubate the patient?s esophagus and advanced to the third portion of the duodenum. Careful inspection of the mucosa was made upon insertion and withdrawal of the endoscope with retroflexion in the stomach. FINDINGS: Esophagus: SC Jx at 40 cm. Esophagus is normal. No esophagitis, stricture, mass or Hidalgo?s. Stomach: Fundus, body and antrum normal. No ulceration, erosion, inflammation, AVM or malignancy. Duodenum: Normal in the bulb, second and third portion. No complications, blood loss or implants. ASSESSMENT AND PLAN: A. GERD, nausea, vomiting, epigastric pain: - Improved on PPI BID and Reglan (make po); continue - No esophagitis or Hidalgo?s - Normal EGD - Hopefully home in am if better B. Dark stool; doubt melena: - EGD normal - Hct normal C. Abnormal imaging-digestive: diverticulosis on CT No further recommendations. Dispo per primary service. Follow-up for GI with Dr. Cesario Membreno in 2-3 weeks. Tarun Munguia M.D. [phone]
--- NOTE | 2020-03-03 19:01 | PC.NURSE ---
Patient returned from GI lab per stretcher.
[2020-03-03] MEDS: PANTOPRAZOLE 40 MG TABLET PO (22:20)
[2020-03-03] MEDS: DONEPEZIL HCL 10 MG TABLET PO (22:20)
[2020-03-04] VITALS: PULSE 62
[2020-03-04] MEDS: DEXTROSE 5%/0.45% SOD CHL 1,000 ML 75 ML IV CONT (00:07)
[2020-03-04] MEDS: METOCLOPRAMIDE HCL INJ 10 MG/2 ML VIAL 5 MG IV PUSH ×3 (00:08→11:30)
[2020-03-04 04:00] VITALS: PULSE 53
[2020-03-04 05:44] LABS: Blood Urea Nitrogen 6 mg/dL (7-17); Calcium 8.7 mg/dL (8.4-10.2); Carbon Dioxide 24 mmol/L (22-30); Chloride 103 mmol/L (98-107); Estimated CRCL calculation 79 ml/min; Estimated Glomerular Filt Rate > 60; Glucose 114 mg/dL (65-105); Potassium 3.4 mmol/L (3.4-5.0); Sodium 133 mmol/L (137-145)
[2020-03-04 06:00] VITALS: BP 152/72; PULSE 61; RESP 18; TEMP 36.4; O2SAT 98
[2020-03-04] MEDS: LEVOTHYROXINE SODIUM 100 MCG TABLET PO (06:56)
[2020-03-04 08:00] VITALS: PULSE 66
--- NOTE | 2020-03-04 08:26 | WPDANESPN ---
Anes - Prog Note Post-Op Date/Time: 03/04/20 08:26 Cardiovascular status: normal Respiratory status: normal Airway patency: baseline Mental status: baseline Post-Op hydration status: normal Vital Signs: Last Vital Signs Temp 36.4 C 03/04/20 06:00 Pulse 61 03/04/20 06:00 Resp 18 03/04/20 06:00 BP 152/72 H 03/04/20 06:00 Pulse Ox 98 03/04/20 06:00 I/O: Intake & Output 03/03/20 03/04/20 03/04/20 23:59 07:59 15:59 Intake Total 1371 614 240 Output Total 275 Balance 1371 614 -35 Laboratory Tests 03/03/20 13:54 03/04/20 04:47 03/03/20 03/03/20 03/04/20 13:54 13:54 04:47 Hgb 13.3 Hct 38.1 Sodium 135 L 133 L Potassium 3.3 L 3.4 Chloride 104 103 Carbon Dioxide 24 24 BUN 7 6 L Creatinine 0.50 L 0.50 L Estim Creat Clear Calc 79 79 Estimated GFR > 60 > 60 Glucose 114 H 114 H Calcium 8.5 8.7 Post-procedural complaints: none Patient Feedback: Patient satisfied with anesthetic care.
--- NOTE | 2020-03-04 08:31 | WPDGIPROGNO ---
Progress Note: A&P Assessment and Plan (1) Nausea and vomiting: Code(s): R11.2 - Nausea with vomiting, unspecified Status: Acute Assessment and Plan: Improved EGD normal 03/03/2020 with negative TUCKER Continue PPI BID and Reglan PO Follow up in the office 2-4 weeks (2) GERD (gastroesophageal reflux disease): Qualifiers: Esophagitis presence: esophagitis presence not specified Qualified Code(s): K21.9 - Gastro-esophageal reflux disease without esophagitis Code(s): K21.9 - Gastro-esophageal reflux disease without esophagitis Status: Chronic Assessment and Plan: Improving PPI BID Anti-reflex diet discussed with patient and son and discussed Low Fodmap diet (3) Intractable epigastric abdominal pain: Code(s): R10.13 - Epigastric pain Status: Acute Assessment and Plan: Continue PPI and Reglan This is improving (4) Complaint of melena: Code(s): K92.1 - Melena Status: Acute Assessment and Plan: Unlikely melena, Hgb has been stable No evidence of GI bleed noted on EGD 03/03/2020 Subjective Date/time seen: 03/04/20 08:31 Patient is overall feeling better. Her son, Camila is at bedside translating fo her. She says after she eats she does report heaviness' in her stomach. She denies any further nausea and vomiting. Had a BM that she reports was dark but zipper measurer than yesterday. No hgb to review this AM Exam Const: General: cooperative, healthy appearing, comfortable, no acute distress and awake Orientation/consciousness: patient oriented x3 GI: Inspection: normal to inspection GI Palp: Yes abdominal tenderness (mild epigastric), Yes Soft to palpation and No Guarding due to palpation present (GI) Auscultation: normal bowel sounds Rectal Exam: deferred Objective Data Vital Signs Vital Signs: Vital Signs - 24 hr 03/03/20 12:00 03/03/20 14:00 03/03/20 16:00 Temperature 36.7 C Pulse Rate 49 L 58 L 56 L Respiratory Rate 16 Blood Pressure 141/63 H Pulse Oximetry 97 03/03/20 17:57 03/03/20 18:07 03/03/20 18:17 Temperature Pulse Rate 59 L 58 L 59 L Respiratory Rate 16 16 16 Blood Pressure 102/46 L 96/51 L 130/62 Pulse Oximetry 97 97 99 03/03/20 20:30 03/03/20 22:00 03/04/20 00:00 Temperature 36.7 C Pulse Rate 65 67 62 Respiratory Rate 18 Blood Pressure 153/69 H Pulse Oximetry 98 03/04/20 04:00 03/04/20 06:00 Temperature 36.4 C Pulse Rate 53 L 61 Respiratory Rate 18 Blood Pressure 152/72 H Pulse Oximetry 98 Intake/Output Intake/Output: Intake & Output 03/01/20 03/02/20 03/03/20 03/04/20 23:59 23:59 23:59 23:59 Intake Total 3060 3336 854 Output Total 1075 400 275 Balance 1985 2029 579 Meds/Results Medications: Active Medications Generic Name Dose Route Start Last Admin Trade Name Freq PRN Reason Stop Dose Admin Donepezil HCl 10 mg 03/03/20 21:00 03/03/20 22:20 Aricept PO 10 mg HS LOS Administration Dextrose/Sodium Chloride 1,000 mls @ 75 mls/hr 03/03/20 06:55 03/04/20 06:59 Dextrose 5% Sodium Chloride 0.45% IV CONT 75 mls/hr .[id number] LOS Infusion Levothyroxine Sodium 100 mcg 03/04/20 06:30 03/04/20 06:56 Synthroid PO 100 mcg DAILY@0630 LOS Administration Lidocaine HCl 0.3 ml 03/03/20 18:12 Xylocaine 2% Local Inj INTRADERM ONCE PRN to numb area Metoclopramide HCl 5 mg 03/02/20 18:00 03/04/20 06:55 Reglan IV PUSH 5 mg Q6HR LOS Administration Ondansetron HCl 4 mg 03/02/20 02:40 03/02/20 21:45 Zofran Inj IV PUSH 4 mg Q4H PRN Administration Nausea Oxybutynin Chloride 5 mg 03/02/20 22:40 03/03/20 20:43 Ditropan PO 5 mg BID LOS Administration Oxybutynin Chloride 5 mg 03/04/20 09:00 Ditropan PO BID LOS Pantoprazole Sodium 40 mg 03/03/20 21:00 03/03/20 22:20 Protonix PO 40 mg Q12HR LOS Administration Promethazine HCl 12.5 mg 03/03/20 19:12 Phenergan Ta
[2020-03-04] MEDS: POTASSIUM CHLORIDE 20 MEQ TABLET 40 MEQ PO (08:42)
[2020-03-04] MEDS: SIMVASTATIN 20 MG TABLET PO (08:43)
[2020-03-04] MEDS: PANTOPRAZOLE 40 MG TABLET PO (08:43)
[2020-03-04] MEDS: OXYBUTYNIN CHLORIDE 5 MG TABLET PO (08:44)
[2020-03-04 08:55] LABS: Hematocrit 38.6 % (37.0-47.0); Hemoglobin 13.2 g/dL (12.0-15.0)
[2020-03-04 12:00] VITALS: PULSE 67
[2020-03-06 05:13] LABS: Osmolality, Urine 221 mOsm/kg (50-1200)
--- NOTE | 2020-03-07 08:19 | PM.DS ---
DS: Admitting Diagnosis Admitting Diagnosis Admitting Diagnosis: Nausea with vomiting, unspecified DS: Discharge Diagnosis Discharge Diagnosis (1) Intractable epigastric abdominal pain: Code(s): R10.13 - Epigastric pain Status: Acute Assessment and Plan: , GERD - NPO, PRN antiemetics, Continueed PPI therapy IV. With b.i.d. Protonix and syymptoms subsided endoscopy revealed gerd only (2) Hyponatremia: Code(s): E87.1 - Hypo-osmolality and hyponatremia Status: Acute Assessment and Plan: hydration w/ NS. until na franco then switched to .45 Nacl so as not to correct too quickly . TSH is normal and suspect with decreased chloride and potassium that it is all secondary to dehydration with free water replacement. Low urine Na and osmolality suggested same (3) Hyperlipidemia: Qualifiers: Hyperlipidemia type: unspecified Qualified Code(s): E78.5 - Hyperlipidemia, unspecified Code(s): E78.5 - Hyperlipidemia, unspecified Status: Chronic Assessment and Plan: Resume simvastatin on discharge. (4) GERD (gastroesophageal reflux disease): Qualifiers: Esophagitis presence: esophagitis presence not specified Qualified Code(s): K21.9 - Gastro-esophageal reflux disease without esophagitis Code(s): K21.9 - Gastro-esophageal reflux disease without esophagitis Status: Chronic Assessment and Plan: Continue PPI therapy. but increase to b.i.d. (5) Hypothyroid: Qualifiers: Hypothyroidism type: unspecified Qualified Code(s): E03.9 - Hypothyroidism, unspecified Code(s): E03.9 - Hypothyroidism, unspecified Status: Chronic Assessment and Plan: continue on discharge As stated TSH is normal DS: Summary Hospital Course Hospital Course: 70-year-old hypotensive female admitted nausea and vomiting abdominal discomfort. Sodium 123. . With saline infusion sodium franco appropriately and at time of discharge is 133. Urine sodium was only 14 and normal TSH suggesting that she had become dehydrated and replenish with free water which was her history. EGD revealed GERD only and her PPI was increased to b.i.d.. She was tolerating a regular diet at time of discharge Time Spent with Patient Time attestation: Total time spent providing and/or coordinating discharge services:35 minutes Exam Narrative: Exam Narrative: condition on discharge lung clear cv rrr abd soft bs+, tenderness subsided extre without edema Discharge Plan Discharge Attending physician on discharge: Jey Crawford Consulting providers: Tarun Munguia Discharging Clinician: Jey Crawford Patient Disposition: Home, Self-Care Activity: as tolerated Diet: regular Patient Instructions: Antibiotic Form, Pain Management in Older Adults (DC), Potassium Content of Foods List (DC), Hypokalemia (DC), Upper Endoscopy (DC) Stand Alone Forms: General Discharge Information Follow-up/Referrals: Luis Carlos,DO Manjit [Primary Care Provider] - Keep Reg. Scheduled Appt. Discharge Medications: Continued donepezil 10 mg tablet 10 mg PO DAILY RF: 0 levothyroxine 100 mcg tablet 100 mcg PO DAILY RF: 0 simvastatin 20 mg tablet 20 mg PO DAILY RF: 0 oxybutynin chloride 5 mg tablet 5 mg PO BID RF: 0 promethazine 12.5 mg tablet 12.5 mg PO BID PRN (Reason: Nausea) RF: 0 Changed omeprazole 40 mg capsule,delayed release(DR/EC) 40 mg PO BIDWM Qty: 60 RF: 0 Other Ambulatory Orders: Basic Metabolic Panel (Routine) Timeframe: 20200311 Location: Determined by Patient Ordered By: Jey Crawford Date of admission: 03/02/20 09:17 Primary Care Provider: Luis Carlos,Manjit Admitting Provider: Hector Taylor Discharge Date/Time: 03/04/20 12:37 Attending physician on admission: Hector Taylor Condition: Stable Quality VTE Prophylaxis VTE prophylaxis: mechanical o
== END 2020-03-04 12:37 | disposition home or self-care (01) | DRG 243 ==
LOC: ANHED 03-02 03:02 → ANH2MED 03-02 03:06
PROVIDERS: Internal Medicine Gastroenterology; Nurse Practitioner; Admitting Provider Family Medicine; Emergency Provider General Practice; PCP Student in an Organized Health Care Education/Training Program; Visit Provider Internal Medicine
PROC: 0DJ08ZZ Inspection of Upper Intestinal Tract, Via Natural or Artificial Opening Endoscopic (ICD-10-PCS; CPT 43235; principal; 2020-03-03 17:20)
DX: K21.9 Gastro-esophageal reflux disease without esophagitis (principal); E87.1 Hypo-osmolality and hyponatremia; E87.6 Hypokalemia; R10.13 Epigastric pain; R11.2 Nausea with vomiting, unspecified; E86.0 Dehydration; K57.90 Diverticulosis of intestine, part unspecified, without perforation or abscess without bleeding; E78.5 Hyperlipidemia, unspecified; E03.9 Hypothyroidism, unspecified; F03.90 Unspecified dementia, unspecified severity, without behavioral disturbance, psychotic disturbance, mood disturbance, and anxiety; E66.9 Obesity, unspecified; Z68.33 Body mass index [BMI] 33.0-33.9, adult; Z90.49 Acquired absence of other specified parts of digestive tract; Z87.11 Personal history of peptic ulcer disease
CPT/HCPCS: 36415; 74177; 80048; 80053; 81001; 83605; 83690; 83935; 84300; 84443; 84484; 85014; 85018; 85025; 93005; 96361; 96374; 96375; 96376; 99285; A9270; C9113; G0378; G0379; J0131; J1170; J2270; J2405; J2704; J2765; J3480; J7030; J7120; Q9967

== ENCOUNTER 2020-04-08 09:00 | Outpatient (RCR) | payer OTHER, SELFPAY ==
--- NOTE | 2020-03-12 11:34 | PTOPEVAL ---
PHYSICAL THERAPY EVALUATION AND PLAN OF CARE 03-12-2020 The PT evaluation was completed for the diagnosis of lumbar radiculopathy. Her plan of care is scheduled for 2x/week for 4 weeks. Thank you for referring Mala Simpson to [facility]. Please review, sign, date and return this plan of care TOBI. I agree with and certify that the following plan of care is medically necessary. Referring Physician Date Attending Provider: SUHA Moise *PT Outpatient Evaluation Start: 03/12/20 10:37 Outpatient Past Medical History Past Medical History Source of Past Medical History Patient,Family/Significant Other Neurological History Hx Neurological Disorders No Significant History Cardiovascular History Hx Hypercholesterolemia Yes Respiratory History Hx Respiratory Disorders No Significant History Gastrointestinal History Hx Gastroesophageal Reflux Disease Yes Hx Other Gastrointestinal Disorders Yes: duodenal irritation Hx Genitourinary History Hx Other Genitourinary Disorders Yes Musculoskeletal History Hx Back Pain Yes Hematological History Hx Hematological Disorders No Significant History Endocrine History Hx Hypothyroidism Yes HEENT History Hx HEENT Disorders No Significant History Integumentary History Hx Skin Disorders No Significant History Reproductive History Hx Reproductive Disorders No Significant History Psychosocial History Hx Psychiatric Disorders No Significant History Pain History Has Past Pain Affected Your Daily Life Yes: Hx back pain Anesthesia History Hx Anesthesia Reactions No Significant History Evaluation Information Problem Diagnosis lumbar radiculopathy Onset January 29, 2020 Additional Evaluation Detail pt does not speak Micronesian, grand daughter interpret for pt today Subjective Information chronic low back pain; recent Query Text:As Reported By Patient/ injections helped pain; is Family still doing previous back exercises from therapy, in the morning--demonstrated:supine heel slide, hip ER, hip flex stretch; also reports neck, B shoulder and thoracic pain previous PT helped with massage and traction; Diagnostic Tests X-Rays For This Problem No MRI For This Problem No Other Tests For This Problem No Previous Treatments Previous Treatments For This Problem previous PT here in past Prior Level of Function Activity Level (Last 3 Months) Occupation retired Activity of Daily Living Ability Independent Indoor/Home Mobility
--- NOTE | 2020-04-08 11:52 | PTOPEVAL ---
PHYSICAL THERAPY DISCHARGE 04-08-2020 Mrs. Simpson has received 9 PT sessions, fromo March 12 to today, for the diagnosis of lumbar radiculopathy. Compared to the initial evaluation: pain rating has decreased at the lower rating; continues to have radicular pain into R and L LE to toes, constantly; reported home activity tolerance has increased by 10 minutes; sleeping tolerance has increased by 1 hour; self assessment functional Oswestry has improved by 2%; trunk and hip strength have increased slightly; continues to have spasms and tenderness over thoracic and lumbar musculatur and she has been issued a home exercise program. Education has been completed for self management of pain using heat, home TENS unit, balance of activity/rest and HEP. She also complains of hip and knee joint pain. Discussed with Mala and her son about the chronic nature of her condition and slight improvements with therapy. She wants to continue therapy for massage, because that made her better. Discussed the option with them of going to a massage. Her treatments are hindered by communication--she does not speak [place], and her family assisted with the translation. The PT goals were partially achieved. Thank you for referring Mala Simpson to [facility]. Please review, sign, date and return this plan of care [facility]. I agree with and certify that the following plan of care is medically necessary. Referring Physician Date Attending Provider: Kaylen Carter, FINANCE INSURANCE MANAGER-BC Document 04/08/20 09:05 YUMIKO (Rec: 04/08/20 10:02 YUMIKO [id number]) Subjective Mala reports, with her son Query Text:As Reported By Patient/ interpreting for her: does Family her exercises at home; feels the massage helps her back; self assessment Oswestry score of 58% limitation in activity level. Son states he feels she is moving better and easier. Discussed with pt and her son-- chronic nature of her back pain. And with her therapy, has had minimal changes from the initial evaluation. At home, can continue to use the stretching and rest/activity balance to manage her pain. She has not been using heat or her home stim unit--discussed use of those to assist in managing her pain. Also discussed possibility of hip and knee arthritis, which is causing her pain. Pain Assessment Timing of Pain Assessment Timing of Pain Assessment Assessment Pain Scale Pain Scale Used Numeric (1 - 10) Self Report Pain Assessment Bilateral Back Reported Pain Level
== END 2020-04-15 14:28 | disposition home or self-care (01) ==
LOC: ANHPT 09:00
PROVIDERS: PCP Student in an Organized Health Care Education/Training Program; Visit Provider Nurse Practitioner Family
DX: M54.16 Radiculopathy, lumbar region (principal)
CPT/HCPCS: 97012; 97014; 97110; 97140; 97161; G0283

== ENCOUNTER 2020-04-22 10:02 | Outpatient (CLI) | payer OTHER, SELFPAY ==
--- NOTE | ~2020-04-22 | XR_ITS ---
EXAMINATION: XR barium swallow EXAM DATE: 04/22/2020 10:50 INDICATION: Early satiety, epigastric pain, bloating, nausea. Sensitivity to smells. TECHNIQUE: Standard thick followed by thin contrast barium esophagram examination was performed. The DAP for this procedure was 0.9 Gycm2. Comparison is made to prior examination from 11/21/2016. FINDINGS: The pharynx is symmetric and without evidence of mass lesion or mucosal irregularity. Ther e is no esophageal stricture or mass identified. There are no esophageal diverticula. Gastroesophag eal junction is normal in appearance. IMPRESSION: Normal exam. Reviewed, dictated and finalized at location A. IMPRESSION: Normal exam.
== END 2020-04-22 10:03 | disposition home or self-care (01) ==
PROVIDERS: PCP Student in an Organized Health Care Education/Training Program
DX: R14.0 Abdominal distension (gaseous) (principal); R10.13 Epigastric pain; R11.0 Nausea; R63.0 Anorexia
CPT/HCPCS: 74220

== ENCOUNTER 2020-06-11 08:37 | Outpatient (CLI) | payer OTHER, SELFPAY ==
[2020-06-11 09:25] LABS: Cholesterol 226 mg/dL (0-200); HDL Direct 89 mg/dL; Triglycerides 93 mg/dL (<150)
[2020-06-11 09:35] LABS: LDL Cholesterol Direct 118 mg/dL
== END 2020-06-11 08:38 | disposition home or self-care (01) ==
PROVIDERS: PCP Student in an Organized Health Care Education/Training Program; Visit Provider Student in an Organized Health Care Education/Training Program
DX: E78.5 Hyperlipidemia, unspecified (principal)
CPT/HCPCS: 36415; 80061

== ENCOUNTER 2024-09-07 08:51 | Outpatient (CLI) | payer OTHER, SELFPAY ==
[2024-09-07 10:20] LABS: Basophils Absolute Auto 0.1 K/mm3 (0.0-0.1); Basophils Percent Auto 0.9 % (0.2-1.2); Eosinophils Absolute Auto 0.3 K/mm3 (0-0.3); Eosinophils Percent Auto 2.9 % (0-4.4); Hematocrit 39.4 % (37.0-47.0); Hemoglobin 13.2 g/dL (12.0-15.0); Immature Granulocyte Absolute 0.14 K/mm3 (0.00-0.031); Immature Granulocyte Percent A 1.5 % (0-0.5); Lymphocytes Absolute Auto 1.86 K/mm3 (0.9-3.2); Lymphocytes Percent Auto 19.4 % (18.3-44.2); Mean Corpuscular HGB Conc 33.5 g/dl (32-36); Mean Corpuscular Hemoglobin 32.1 pg (26-34); Mean Corpuscular Volume 95.9 fl (80-100); Mean Platelet Volume 9.8 fl (7.4-10.4); Monocytes Absolute Auto 1.2 K/mm3 (0.1-0.6); Monocytes Percent Auto 12.9 % (2.6-8.5); Neutrophils Percent Auto 62.4 % (45.5-73.1); Platelet Count Result 254 k/mm3 (150-375); Red Blood Count 4.11 M/mm3 (4.2-5.4); Red Cell Distribution Width 13.2 % (11.5-14.5); White Blood Count 9.6 K/mm3 (4.5-10.0)
[2024-09-07 10:58] LABS: Vitamin D 25 Hydroxy 38.2 ng/mL
[2024-09-07 11:12] LABS: Thyroid Stimulating Hormone Reflex 0.086 uIU/mL (0.465-4.68)
[2024-09-07 11:42] LABS: Hemoglobin A1C 6.5 % (<5.7)
[2024-09-07 14:00] LABS: Alanine Aminotransferase 39 U/L (6-35); Albumin Level 3.8 g/dL (3.5-5.1); Alkaline Phosphatase 84 U/L (38-126); Anion Gap 6 mmol/L (4-12); Aspartate Amino Transferase 33 U/L (14-36); Bilirubin,Total 0.4 mg/dL (0.2-1.3); Blood Urea Nitrogen 26 mg/dL (7-17); Calcium 9.3 mg/dL (8.4-10.2); Carbon Dioxide 28 mmol/L (22-30); Chloride 106 mmol/L (98-107); Cholesterol 191 mg/dL (0-200); Estimated Glomerular Filt Rate > 60; Glucose 106 mg/dL (65-110); HDL Direct 91 mg/dL; Potassium 4.4 mmol/L (3.4-5.0); Sodium 140 mmol/L (137-145); Triglycerides 73 mg/dL (<150); Uric Acid 3.8 mg/dL (2.5-7.5)
[2024-09-07 14:11] LABS: LDL Cholesterol Direct 77 mg/dL
[2024-09-08 15:30] LABS: Total Triiodothyronine (T3) 1.58 NG/ML (0.97-1.69)
== END 2024-09-07 08:52 | disposition home or self-care (01) ==
LOC: ANHLAB 08:55
PROVIDERS: PCP Student in an Organized Health Care Education/Training Program; Visit Provider Student in an Organized Health Care Education/Training Program
DX: E78.5 Hyperlipidemia, unspecified (principal); M85.89 Other specified disorders of bone density and structure, multiple sites; R73.03 Prediabetes; E03.9 Hypothyroidism, unspecified
CPT/HCPCS: 36415; 80053; 80061; 82306; 83036; 84439; 84443; 84480; 84550; 85025

== ENCOUNTER 2024-09-28 13:53 | Outpatient (CLI) | payer OTHER, SELFPAY ==
--- NOTE | ~2024-09-28 | MM_ITS ---
EXAMINATION: MM screening skylar BI w kenia HISTORY: Screening TECHNIQUE: Craniocaudal and mediolateral oblique 3-D tomosynthesis images were obtained and synthetic 2-D images were generated. CAD analysis was submitted and interpreted. COMPARISON: Comparison to multiple prior studies sequentially, with oldest reviewed study dated 11/2015. BREAST PARENCHYMAL COMPOSITION: Not Dense: The breasts are almost entirely fatty. FINDINGS: There is no evidence of suspicious mass, calcification, or architectural distortion to sugg est malignancy in either breast. There has been no suspicious interval change. IMPRESSION: 1. No mammographic evidence of malignancy. 2. Recommend routine screening mammography in one year. BI-RADS Category 1: Negative Reviewed, dictated and finalized at location A. KING WHEEL TENDER
--- OUTSIDE RECORDS SUMMARY | 2024-09-28 14:37 | XMS_ITS | Encounter Summary ---
Author Organization [facility] Address [address] [place] [address]. [place] [address] [place] [address] Care Team Providers Care Home Administrator Name Role Phone Manjit Aldridge DO Primary Care Provider + Manjit Aldridge DO Unavailable [phone] Encounter Details Date Type Department Care Team (Late st Contact Info) Description 10/29/2023 MyChart Message Enc [facility] Medical Group Orthopedic & Sports Medicine - [place] [address] [place], [place] [phone] Say Gaviria MD [address] [place], [place] [phone] Knees folllow up Social History Tobacco Use Types Packs/Day Years Used Date Smoking Tobacco: Never Smokeless Tobacco: Never Comments:na Alcohol Use Standard Drinks/Week Comments Never 0 (1 standard drink = 0.6 oz pur e alcohol) AUDIT-C Answer Date Recorded Frequency of Alcohol Consumption Never 09/23/2018 Average Number of Drinks Not on file 019 Frequency of Binge Drinking Not on file 08/31 PHQ-2 Answer Date Recorded Patient Health Questionnaire-2 Score 0 06/24/2023 Comments No Sex and Gender Information Value Date Recorded Sex Assigned at Female 10/15/2022 9:55 AM ROUND CUTTER OPERATOR Legal Sex Female 4:25 PM ROUND CUTTER OPERATOR Gender Identity Female 10/15/2022 9:55 AM ROUND CUTTER OPERATOR Sexual Orientation Straight 10/15/2022 9: 55 AM ROUND CUTTER OPERATOR documented as of this encounter Plan of Treatment Upcoming Encounters Date Type Department Care Team (Late st Contact Info) Description 10/03/2024 1:40 PM ROUND CUTTER OPERATOR Office Visit [facility] Orthopedic & Sports Medicine [facility] [address] [place] [address] Say Gaviria MD [address] [place] [address] 10/10/2024 1:00 PM ROUND CUTTER OPERATOR Office Visit [facility] Orthopedic Sports [facility] [address] [place] [address] Say Gaviria MD [address] [place], [place] [phone]- 11/02/2024 8:00 AM ROUND CUTTER OPERATOR Office Visit [facility] Family & Internal Medicine [facility] [address] [place] [address] Manjit Aldridge DO [address] [place] [address] documented as of this encounter Visit Diagnoses Not on filedocumented in this encounter Additional Health Concerns Assessment Noted Time PHQ-9 Depression Total Score: 0 10/08/19 22 2:41 PM ROUND CUTTER OPERATOR documented as of this encounter Care Teams Home Administrator Relationship Specialty Start Date End Date Manjit Aldridge DO [address] [place] [address] PCP - General FAMILY PRACTICE 09/24/21 Manjit Aldridge DO [address] [place] [address] FAMILY PRACTICE 09/24/21 documented as of this encounter
--- OUTSIDE RECORDS SUMMARY | 2024-09-28 14:37 | XMS_ITS | Encounter Summary ---
Author Organization [facility] Address [address] [place] [address]. [place] [address] [place] [address] Care Team Providers Care Button Maker Name Role Phone Manjit Aldridge DO Primary Care Provider + Manjit Aldridge DO Unavailable [phone] Encounter Details Date Type Department Care Team (Late st Contact Info) Description 07/09/2023 MyChart Message Enc [facility] Medical Group Family & Internal Medicine [facility] [address] [place] [address] Manjit Aldridge DO [address] [place] [address] Blood work Social History Tobacco Use Types Packs/Day Years [...] Sex Assigned at Female 10/15/2022 9:55 AM TRANSFER TABLE OPERATOR HELPER Legal Sex Female 4:25 PM TRANSFER TABLE OPERATOR HELPER Gender Identity Female 10/15/2022 9:55 AM TRANSFER TABLE OPERATOR HELPER Sexual Orientation Straight 10/15/2022 9: 55 AM TRANSFER TABLE OPERATOR HELPER documented as of this encounter Progress Notes * Manjit Aldridge DO - 07/20/2023 12:57 PM CST If it's been 3 months since a systemic injection of methylprednisolone 80 mg, we could do that in anursing visit. If it's into a joint specifically, we do not have any openings this week. SFER TABLE OPERATOR HELPER * Manjit Aldridge DO - 07/11/2023 1:41 PM CST Recommend schedule follow-up and obtain labs prior to visit; recommend CBC, CMP, TSH, A1c, Vitamin D, and Lipid Panel. SFER TABLE OPERATOR HELPER documented in this encounter Plan of Treatment Upcoming Encounters Date Type Department Care Team (Late st Contact Info) Description 10/03/2024 1:40 PM TRANSFER TABLE OPERATOR HELPER Office Visit [facility] Orthopedic & Sports Medicine [facility] [address] [place] [address] Say Gaviria MD [address] [place] [address] 10/10/2024 1:00 PM TRANSFER TABLE OPERATOR HELPER Office Visit [facility] Orthopedic & Sports Medicine - [place] [address] [place] [address] Say Gaviria MD [address] [place] [address] 11/02/2024 8:00 AM TRANSFER TABLE OPERATOR HELPER Office Visit [facility] Family & Internal Medicine [address] [address] Manjit Aldridge DO [address] [place] [address] documented as of this encounter Visit Diagnoses Not on filedocumented in this encounter Additional Health Concerns Assessment Noted Time PHQ-9 Depression Total Score: 0 10/08/19 22 2:41 PM TRANSFER TABLE OPERATOR HELPER documented as of this encounter Care Teams Button Maker Relationship Specialty Start Date End Date Manjit Aldridge DO [address] [place] [address] PCP - General FAMILY PRACTICE 09/24/21 Manjit Aldridge DO [address] [place] [address] FAMILY PRACTICE 09/24/21 documented as of this encounter
--- OUTSIDE RECORDS SUMMARY | 2024-09-28 14:37 | XMS_ITS | Encounter Summary ---
Author Organization [facility] Address [address] [place] [address]. [place] [address] [place] [address] Care Team Providers Care Manager Salt Name Role Phone Manjit Aldridge DO Primary Care Provider + Manjit Aldridge DO Primary Care Provider + Manjit Aldridge DO Unavailable Encounter Details Date Type Department Care Team (Late st Contact Info) Description 09/21/2021 MyChart Message Enc [facility] Medical Group Orthopedic & Sports Medicine - [place] [address] [place] [address] Say Gaviria MD [address] [place] [address] Question regarding JOINT ASPIRATION/INJECTION Social History Tobacco Use Types Packs/Day Years Used Date Smoking Tobacco: Never Smokeless Tobacco: Never Alcohol Use Standard Drinks/Week Comments No 0 (1 standard drink = 0.6 oz pur e alcohol) AUDIT-C Answer Date Recorded Frequency of Alcohol Consumption Never 09/23/2018 Average Number of Drinks Not on file 019 Frequency of Binge Drinking Not on file 08/31 PHQ-2 Answer Date Recorded PHQ-2 Score - If the patient scores above 3, please move on to questions 3-9 0 09/08/2021 Comments No Sex and Gender Information Value Date Recorded Sex Assigned at Female 10/15/2022 9:55 AM FRUIT OR NUT FARMWORKER Legal Sex Female 4:25 PM FRUIT OR NUT FARMWORKER Gender Identity Female 10/15/2022 9:55 AM FRUIT OR NUT FARMWORKER Sexual Orientation Straight 10/15/2022 9: 55 AM FRUIT OR NUT FARMWORKER COVID-19 Exposure Response Date Recorded In the last month, have you been in contact with someone who was confirmed or suspected to have Coronavirus / COVID-19? No / Unsure 09/24/2021 10:12 AM FRUIT OR NUT FARMWORKER documented as of this encounter Plan of Treatment Upcoming Encounters Date Type Department Care Team (Late st Contact Info) Description 10/03/2024 1:40 PM FRUIT OR NUT FARMWORKER Office Visit [facility] Orthopedic & Sports [facility] [address] [place] [address] Say Gaviria MD [address] [place] [address] 10/10/2024 1:00 PM FRUIT OR NUT FARMWORKER Office Visit [facility] Orthopedic & Sports [facility] [address] [place] [address] Say Gaviria MD [address] [place] [address] 11/02/2024 8:00 AM FRUIT OR NUT FARMWORKER Office Visit [facility] Family & Internal Medicine [place] [address] [place] [address] Manjit Aldridge DO [address] [place] [address] documented as of this encounter Visit Diagnoses Not on filedocumented in this encounter Additional Health Concerns Assessment Noted Time PHQ-9 Depression Total Score: 0 09/08/19 22 2:51 PM FRUIT OR NUT FARMWORKER documented as of this encounter Care Teams Manager Salt Relationship Specialty Start Date End Date Manjit Aldridge DO [address] [place] [address] PCP - General FAMILY PRACTICE 09/08/18 09/23/21 Manjit Aldridge DO [address] [place] [address] PCP - General FAMILY PRACTICE 09/24/21 Manjit Aldridge DO [address] [place] [address] FAMILY PRACTICE 09/24/21 documented as of this encounter
--- OUTSIDE RECORDS SUMMARY | 2024-09-28 14:37 | XMS_ITS | Encounter Summary ---
Author Organization [facility] Address [address] [place] [address]. [place] [address] [place] [address] Care Team Providers Care Telephone Supervisor Name Role Phone Manjit Aldridge DO Primary Care Provider + Manjit Aldridge DO Unavailable Encounter Details Date Type Department Care Team (Late st Contact Info) Description 12/09/2021 OneTwoTrip Message Enc [facility] Medical Group Orthopedic & Sports Medicine - [place] [address] Patricia, [facility] Provider Gel injection Social History Tobacco Use Types Packs/Day Years Used Date Smoking Tobacco: Never Smokeless Tobacco: Never Alcohol Use Standard Drinks/Week Comments Never 0 (1 standard drink = 0.6 oz pur e alcohol) AUDIT-C Answer Date Recorded Frequency of Alcohol Consumption Never 09/23/2018 Average Number of Drinks Not on file 019 Frequency of Binge Drinking Not on file 08/31 PHQ-2 Answer Date Recorded PHQ-2 Score - If the patient scores above 3, please move on to questions 3-9 0 10/08/2021 Comments No Sex and Gender Information Value Date Recorded Sex Assigned at Female 10/15/2022 9:55 AM CUSTOMER COMPLAINT CLERK Legal Sex Female 4:25 PM CUSTOMER COMPLAINT CLERK Gender Identity Female 10/15/2022 9:55 AM CUSTOMER COMPLAINT CLERK Sexual Orientation Straight 10/15/2022 9: 55 AM CUSTOMER COMPLAINT CLERK COVID-19 Exposure Response Date Recorded In the last 10 days, have yo u been in contact with someone who was confirmed or suspected to have Coronavirus/COVID-19? No / Unsure 12/08/2021 8:58 AM CDT documented as of this encounter Plan of Treatment Upcoming Encounters Date Type Department Care Team (Late st Contact Info) Description 10/03/2024 1:40 PM CUSTOMER COMPLAINT CLERK Office Visit [facility] Orthopedic & Sports Medicine [facility] [address] [place] [address] Say Gaviria MD [address] [place] [address] 10/10/2024 1:00 PM CUSTOMER COMPLAINT CLERK Office Visit [facility] Orthopedic & Sports [facility] [address] [place] [address] Say Gaviria MD [address] [place] [address] 11/02/2024 8:00 AM CUSTOMER COMPLAINT CLERK Office Visit [facility] Family & Internal Medicine [address] [address] [place] [address] [place] [address] documented as of this encounter Visit Diagnoses Not on filedocumented in this encounter Additional Health Concerns Assessment Noted Time PHQ-9 Depression Total Score: 0 10/08/19 22 2:41 PM CUSTOMER COMPLAINT CLERK documented as of this encounter Care Teams Telephone Supervisor Relationship Specialty Start Date End Date Manjit Aldridge DO [address] [place] [address] PCP - General FAMILY PRACTICE 09/24/21 Manjit Aldridge DO [address] [place] [address] FAMILY PRACTICE 09/24/21 documented as of this encounter
--- OUTSIDE RECORDS SUMMARY | 2024-09-28 14:38 | XMS_ITS | Clinical Summary ---
Author Organization [facility] Address [address] [address] Phone Care Team Providers Care Recording Studio Internship Name Role Phone Unavailable Primary Care Provider Unavailabl e Social History Tobacco Use Types Packs/Day Years Used Date Smoking Tobacco: Never Assessed Comments Unknown Sex and Gender Information Value Date Recorded Sex Assigned at Not on file Legal Sex Female 3:51 PM ASSOCIATE DESIGNER Gender Identity Not on file Sexual Orientation Not on file Plan of Treatment Health Maintenance Due Date Last Done Comments DEXA Bone Density 1950 Hepatitis C Virus (HCV) Screening 1950 TdaP Immunization 1949 Colonoscopy 1994 Colorectal Cancer Screening 1994 Cologuard 1999 Immunochemical Fecal Occult Blood 1999 Pneumococcal Immunization (5 0+ years) (1 of 1 - PCV) 1999 Zoster Immunization (1 of 2) 1999 Respiratory Syncytial Virus (RSV) Immunization (Adult) (1 - 1-dose 75+ series) 01/12/2024 Influenza Immunization (#1) 2024 10/0 09/2019, 06/07/2019, 08/26/2016 SARS-COV-2 Immunization ( season) 2024 09/20/2021, 11/29/2020, 11/11/2020 Hepatitis B Immunization Aged Out No longer eligible based on patient's age to complete this topic Meningococcal Immunization (ACWY) Aged Out No longer eligible b ased on patient's age to complete this topic Rotavirus Immunization Aged Out No lo nger eligible based on patient's age to complete this topic
--- OUTSIDE RECORDS SUMMARY | 2024-09-28 14:38 | XMS_ITS | Encounter Summary ---
Author Organization [facility] Address [address] [place] [address]. [place] [address] [place] [address] Care Team Providers Care Access Services Assistant Name Role Phone Manjit Aldridge DO Primary Care Provider + Manjit Aldridge DO Unavailable [phone] Encounter Details Date Type Department Care Team (Late st Contact Info) Description 12/17/2022 MyChart Message Enc [facility] Medical Group Family & Internal Medicine [facility] [address] [place] [address] Manjit Aldridge DO [address] [place] [address] Arthritis Social History Tobacco Use Types Packs/Day Years [...] Date Recorded Patient Health Questionnaire-2 Score 0 10/05/2022 Comments No Sex and Gender Information Value Date Recorded Sex Assigned at Female 10/15/2022 9:55 AM ETCHER PRINTED CIRCUIT BOARDS Legal Sex Female 4:25 PM ETCHER PRINTED CIRCUIT BOARDS Gender Identity Female 10/15/2022 9:55 AM ETCHER PRINTED CIRCUIT BOARDS Sexual Orientation Straight 10/15/2022 9: 55 AM ETCHER PRINTED CIRCUIT BOARDS COVID-19 Exposure Response Date Recorded In the last 10 days, have yo u been in contact with someone who was confirmed or suspected to have Coronavirus/COVID-19? No / Unsure 12/15/2022 2:50 PM CDT documented as of this encounter Progress Notes * Manjit Aldridge DO - 12/22/2022 3:57 PM CDT Could do a 40 minute on 2:20 on Wednesday. documented in this encounter Plan of Treatment Upcoming Encounters Date Type Department Care Team (Late st Contact Info) Description 10/03/2024 1:40 PM ETCHER PRINTED CIRCUIT BOARDS Office Visit [facility] Orthopedic & Sports Medicine [facility] [address] [place] [address] Say Gaviria MD [address] [place] [address] 10/10/2024 1:00 PM ETCHER PRINTED CIRCUIT BOARDS Office Visit [facility] Orthopedic & Sports [facility] [address] [place] [address] Say Gaviria MD [address] [place] [address] 11/02/2024 8:00 AM ETCHER PRINTED CIRCUIT BOARDS Office Visit [facility] Family & Internal Medicine [address] [address] Manjit Aldridge DO [address] [place] [address] documented as of this encounter Visit Diagnoses Not on filedocumented in this encounter Additional Health Concerns Assessment Noted Time PHQ-9 Depression Total Score: 0 10/08/19 22 2:41 PM ETCHER PRINTED CIRCUIT BOARDS documented as of this encounter Care Teams Access Services Assistant Relationship Specialty Start Date End Date Manjit Aldridge DO [facility] [place] [address] PCP - General FAMILY PRACTICE 09/24/21 Manjit Aldridge DO [address] [place] [address] FAMILY PRACTICE 09/24/21 documented as of this encounter
--- OUTSIDE RECORDS SUMMARY | 2024-09-28 14:38 | XMS_ITS | Clinical Summary ---
Author Organization [facility] Address [address] [place] [address] Care Team Providers Care Corrections Sergeant Name Role Phone DonellpeeweeManjit varner Bianca NARAYANAN Primary Care Provider + Source Comments [facility],non-owned Affiliates and Associated Physician Practices is amultiple site organization consisting of ambulatory clinics and hospital sitesin [place], [place], [place] and [place]. This disclosure is being madepursuant to the Care Everywhere program and may not contain all information available regarding this patient. Last updated 18.[facility] [email or web address] Allergies Active Allergy Reactions Criticality Noted Date Comments Promethazine GI Discomfort,Unknown 06/11/2020 Other reaction(s): Unknown Tramadol GI Discomfort,Unknown 06/11/2020 Other reaction(s): Unknown Medications * Be aware that medications may not be up to date on this document. Alwaysverify current medications with the patient. Medication Sig Dispensed Refills Start Date End Date Status donepezil (Aricept) 10 MG tablet Take 1 (one) tablet by mouth once daily 12/25/2022 Active simvastatin (Zocor) 40 MG tablet Take 1 (one) tablet by mouth once daily 12/25/2022 Active omeprazole (PriLOSEC) 40 MG capsule TK 1 C PO BID 07/09/2023 Active Simethicone (PHAZYME PO) Active levothyroxine (Synthroid) 88 MCG tablet 07/30/2023 Active vitamin D3 (Cholecalciferol) (10 MCG) 400 UNIT tablet Take 1 (one) tablet by mouth once daily Active hyoscyamine (Levsin) 0.125 MG IR tablet 12/15/2023 Active methylPREDNISolone acetate (DEPO-Medrol) 80 MG/ML injection Inject 1 mL into muscle once 12/09/2023 Active oxyBUTYnin (Ditropan) 5 MG tablet Take 1 (one) tablet by mouth 2 times daily Active Active Problems Problem Noted Date Diagnosed Date Overactive bladder 07/12/2023 10/11/2023 Overview (10/11/2023): Last Assessment & Plan: Condition: stable Lose weight to ease your symptoms. Limit foods and drinks that irritate your bladder. Do pelvic floor muscle exercises/kegal. Make regular scheduled trips to the toilet and wear absorbent pads/underwear as needed. You can also do bladder training to increase the intervals between urination. Follow up in: if symptoms worsen or fail to improve Chronic pain of left knee 06/06/20202023 Localized osteoarthritis of left knee 06/06/2020 10/11/2023 Primary osteoarthritis of both knees 06/06/2020 10/11/2023 Overview (10/11/2023): Last Assessment & Plan: Condition: stable Self care for osteoarthritis: -stay active, regular activity and strength training can improve function and reduce pain -eat healthy, nutrients are vital to bones and muscle -lose weight, less pressure on joints can improve pain -sleep well and manage stress, this helps to deal with and handle pain better - use hot or cold packs to help with stiffness or swelling -use splints or wraps to provide joints with more support Follow up in: if symptoms worsen or fail to improve Last Assessment & Plan: Condition: stable Self care for osteoarthritis: -stay active, regular activity and strength training can improve function and reduce pain -eat healthy, nutrients are vital to bones and muscle -lose weight, less pressure on joints can improve pain -sleep well and manage stress, this helps to deal with and handle pain better -use hot or cold packs to help with stiffness or swelling -use splints or wraps to provide joints with more support Follow up in: if symptoms worsen or fail to improve Arthritis of left hand 03/13/2020 02/12/202 4 Gastroesophageal reflux disease 03/13/2020 10/11/2023 Overview (10/11/2023): Last Assessment & Plan: Condition: stable Reviewed use of antacid medication and/or diet modifications of decreasing caffeine, spicy foods, chocolate, and avoiding alcohol, tobacco, NSAIDs, and reducing citrus acids. Follow up in: if symptoms worsen or fail to improve Hyperlipidemia 09/23/2018 10/11/2023 Overview (10/11/2023): Last Assessment & Plan: Condition: stable No recent lipid profile to review with member. Please contact PCP for evaluation of fasting lipid profile for the management of hyperlipidemia on therapy with simvastatin. Continue to work on modifying your lifestyle for healthy habits. Eat healthy, avoid saturated fats and processed foods. Include daily exercise. Lose excess weight. Quit smoking if you smoke. Follow up in: one month Memory change 09/23/2018 10/11/2023 Overview (10/11/2023): Last Assessment & Plan: Condition: stable No neurology visit to review. Last PCP visit 12/25/22. Follow up as directed. Follow up in: as directed by PCP and specialist Other specified hypothyroidism 09/23/2018 0 10/11/2023 Overview (10/11/2023): Last Assessment & Plan: Condition: stable Component Ref Range & Units 08/21/22 0855 Comments TSH 0.358 - 3.74 uIU/ML 2.500 Follow up in: one month Urinary incontinence 09/23/2018 10/11/2023 Plantar fasciitis 10/09/2015 10/11/2023 Cervical radiculopathy 09/19/2015 4 Cervicalgia 08/01/2015 10/11/2023 Chronic pain 08/01/2015 10/11/2023 Lumbago 08/01/2015 10/11/2023 Spondylosis of lumbosacral region 08/01/2015 10/11/2023 Encounters Date Type Department Care Team Description 09/26/2024 9:00 AM RESIDENCE LEASING AGENT Office Visit [facility] - General Surgery [address] [facility] [address] [place] [phone] Hipolito [place] DO Skin lesion (Primary Dx) 09/26/2024 Travel 09/15/2024 3:10 PM RESIDENCE LEASING AGENT Office Visit [facility] - Dermatology [facility] [facility], [place] [address] Brayden Sosa MD Neoplasm of uncertain behavior of skin (Primary Dx); Arthritis of finger of both hands 09/15/2024 Travel 09/08/2024 Travel from Last 3 Months Social History Tobacco Use Types Packs/Day Years Used Date Smoking Tobacco: Never Smokeless Tobacco: Never Tobacco Cessation:Counseling Given: Not Answered Alcohol Use Standard Drinks/Week Comments Never 0 (1 standard drink = 0.6 oz pur e alcohol) Sex and Gender Information Value Date Recorded Sex Assigned at Not on file Gender Identity Not on file Sexual Orientation Not on file Last Filed Vital Signs Vital Sign Reading Time Taken Comments Blood Pressure 145/85 09/26/2024 8:47 AM RESIDENCE LEASING AGENT Pulse 80 09/26/2024 8:47 AM RESIDENCE LEASING AGENT Temperature 37.3 ??C (99.2 ??F) 09/26/2024 8:47 AM CS T Respiratory Rate 16 12/18/2016 3:04 PM CDT Oxygen Saturation 98% 09/26/2024 8:47 AM RESIDENCE LEASING AGENT Inhaled Oxygen Concentration - - Weight 80.3 kg (177 lb) 09/26/2024 8:47 AM RESIDENCE LEASING AGENT Height 152.4 cm (5') 09/26/2024 8:47 AM RESIDENCE LEASING AGENT Body Mass Index 34.57 09/26/2024 8:47 AM RESIDENCE LEASING AGENT Plan of Treatment Upcoming Encounters Date Type Department Care Team (Late st Contact Info) Description 10/10/2024 3:15 PM RESIDENCE LEASING AGENT Procedure visit [facility] - General Surgery [address] [facility] [address] [place] [phone] Hipolito [place] DO [address] [facility] [address] [place] [phone] Health Maintenance Due Date Last Done Comments COLOGUARD (AGES 45-75) - COLON CA SCREENING 1950 COLON MONITORING 1949 COLONOSCOPY - COLON CA SCREENING 1949 CT COLONOGRAPHY - COLON CA SCREENING 1950 Colorectal Cancer Screening 1950 FIT - COLON CA SCREENING 1949 FLEX SIG - COLON CA SCREENING 1950 HEPATITIS C SCREENING 01/07/1967 DTAP/TDAP/TD VACCINES (1 - Tdap) 01/12/1968 PNEUMOCOCCAL VACCINE 50+ (1 of 1 - PCV) 1999 ZOSTER VACCINE (1 of 2) 1999 Respiratory Syncytial Virus (RSV) Vaccine Pt: or over 60 yrs (1 - 1-dose 75+ series) 01/12/2024 COVID-19 VACCINE ( season) 2024 06/22/2022, 09/20/2021, 11/29/2020, Additional history exists MAMMOGRAM 08/21/2024 08/21/2022, 1201/2021, 10/27/2019, Additional history exists DEPRESSION SCREENING 08/30/2024 BONE DENSITY TESTING Completed 08/13/2023, 08/04/20 21 INFLUENZA VACCINE Completed 07/07/2024, , 06/22/2022, Additional history exists HEPATITIS B VACCINE Aged Out No longe r eligible based on patient's age to complete this topic HIB VACCINE Aged Out No longer eligi ble based on patient's age to complete this topic HPV VACCINE Aged Out No longer eligi ble based on patient's age to complete this topic MENINGOCOCCAL (Group B) VACCINE Aged Out No longer eligible based on patient's age to complete this topic MENINGOCOCCAL VACCINE Aged Out No forrest carmen eligible based on patient's age to complete this topic Care Teams Corrections Sergeant Relationship Specialty Start Date End Date Manjit Aldridge DO [address] [place] [id number] PCP - General Family Medicine Geriatric Medicine 09/15/24
--- OUTSIDE RECORDS SUMMARY | 2024-09-28 14:38 | XMS_ITS | Encounter Summary ---
Author Organization [facility] Address [address] [place] [address]. [place] [address] [place] [address] Care Team Providers Care Ebay Reseller Name Role Phone Manjit Aldridge DO Primary Care Provider + Manjit Aldridge DO Unavailable [phone] Encounter Details Date Type Department Care Team (Late st Contact Info) Description 10/26/2022 MyChart Message Enc [facility] Orthopedic & Sports Medicine - [place] [address] [place], [place] [phone] Say Gaviria MD [address] [place], [place] [phone] Knees injection Social History Tobacco Use Types Packs/Day [...] Sex Assigned at Female 10/15/2022 9:55 AM GUEST SERVICES ASSOCIATE Legal Sex Female 4:25 PM GUEST SERVICES ASSOCIATE Gender Identity Female 10/15/2022 9:55 AM GUEST SERVICES ASSOCIATE Sexual Orientation Straight 10/15/2022 9: 55 AM GUEST SERVICES ASSOCIATE COVID-19 Exposure Response Date Recorded In the last 10 days, have yo u been in contact with someone who was confirmed or suspected to have Coronavirus/COVID-19? No / Unsure 10/15/2022 9:46 AM GUEST SERVICES ASSOCIATE documented as of this encounter Plan of Treatment Upcoming Encounters Date Type Department Care Team (Late st Contact Info) Description 10/03/2024 1:40 PM GUEST SERVICES ASSOCIATE Office Visit [facility] Orthopedic & Sports Medicine [facility] [address] [place] [address] Say Gaviria MD [address] [place] [address] 10/10/2024 1:00 PM GUEST SERVICES ASSOCIATE Office Visit [facility] Orthopedic & Sports [facility] [address] [place] [address] Say Gaviria MD [address] [place] [address] 11/02/2024 8:00 AM GUEST SERVICES ASSOCIATE Office Visit [facility] Family & Internal Medicine [address] [phone] Manjit Aldridge DO [address] [place] [address] documented as of this encounter Visit Diagnoses Not on filedocumented in this encounter Additional Health Concerns Assessment Noted Time PHQ-9 Depression Total Score: 0 10/08/19 2:41 PM GUEST SERVICES ASSOCIATE documented as of this encounter Care Teams Ebay Reseller Relationship Specialty Start Date End Date Manjit Aldridge DO [address] [place] [address] PCP - General FAMILY PRACTICE 09/24/21 Manjit Aldridge DO [facility] [place] [address] FAMILY PRACTICE 09/24/21 documented as of this encounter
--- OUTSIDE RECORDS SUMMARY | 2024-09-28 14:38 | XMS_ITS | Referral Summary ---
Author Organization [facility] Address [address] [facility] [place] [address] Care Team Providers Care Mannequin Mounter Name Role Phone Manjit Aldridge Bianca DO Primary Care Provider + Source Comments [facility],non-owned Affiliates and Associated Physician Practices is amultiple site organization consisting of ambulatory clinics and hospital sitesin [place], [place], [place] and [place]. This disclosure is being madepursuant to the Care Everywhere program and may not contain all information available regarding this patient. Last updated 18.[facility] Encounters Date Type Department Care Team Description 09/26/2024 Travel 09/26/2024 9:00 AM FREELANCE DESIGNER Office Visit [facility] - General Surgery [address] [phone] Hipolito [place] DO Skin lesion (Primary Dx) 09/15/2024 Travel 09/15/2024 3:10 PM FREELANCE DESIGNER Office Visit [facility] - Dermatology [facility] [facility] [place] [phone] Brayden Sosa MD Neoplasm of uncertain behavior of skin (Primary Dx); Arthritis of finger of both hands 09/08/2024 Travel from Last 3 Months Allergies Active Allergy Reactions Criticality Noted Date [...] to improve Arthritis of left hand 03/13/2020 Gastroesophageal reflux disease 03/13/2020 10/11/2023 Overview (10/11/2023): [...] Plantar fasciitis 10/09/2015 10/11/2023 Cervical radiculopathy 09/19/2015 Cervicalgia 08/01/2015 10/11/2023 Chronic pain 08/01/2015 10/11/2023 Lumbago 08/01/2015 10/11/2023 Spondylosis of lumbosacral region 08/01/2015 10/11/2023 Social History Tobacco Use Types Packs/Day Years [...] Comments Blood Pressure 145/85 09/26/2024 8:47 AM FREELANCE DESIGNER Pulse 80 09/26/2024 8:47 AM FREELANCE DESIGNER Temperature 37.3 ??C (99.2 ??F) 09/26/2024 8:47 AM CS T Respiratory Rate 16 12/18/2016 3:04 PM CDT Oxygen Saturation 98% 09/26/2024 8:47 AM FREELANCE DESIGNER Inhaled Oxygen Concentration - - Weight 80.3 kg (177 lb) 09/26/2024 8:47 AM FREELANCE DESIGNER Height 152.4 cm (5') 09/26/2024 8:47 AM FREELANCE DESIGNER Body Mass Index 34.57 09/26/2024 8:47 AM FREELANCE DESIGNER Plan of Treatment Upcoming Encounters Date Type Department Care Team (Late st Contact Info) Description 10/10/2024 3:15 PM FREELANCE DESIGNER Procedure visit [facility] - General Surgery [address] [facility] [address] [place] [address] Hipolito [place] DO [address] [facility] [address] [place] [address] Care Teams Mannequin Mounter Relationship Specialty Start Date End Date Manjit Aldridge DO [address] [place] [id number] PCP - General Family Medicine Geriatric Medicine 09/15/24
--- OUTSIDE RECORDS SUMMARY | 2024-09-28 14:38 | XMS_ITS | Clinical Summary ---
Author Organization [facility] Address [address] [place] [address]. [place], [place] [address] [place] [address] Care Team Providers Care Odd Bundle Worker Name Role Phone Mati North DO Primary Care Provider + Mati North DO Unavailable [phone] Allergies Active Allergy Reactions Criticality Noted Date Comments Promethazine GI Upset 06/11/2020 Promethazine Unknown 09/24/2021 Tramadol GI Upset 06/11/2020 Tramadol Unknown 09/24/2021 Medications magnesium oxide (MAG-OX) 250 MG tablet Take 1 tablet (250 mg total) by mouth daily. Active vitamin D3, cholecalciferol, 10 mcg tablet Take 1 tablet (400 Units total) by mouth daily. Active hyoscyamine (LEVSIN) 0.125 MG tabletIndications:A bdominal spasms TAKE 1 OR 2 TABLETS (0.125-0.25 MG TOTAL) BY MOUTH EVERY 6 (SIX) HOURS NEEDED FOR CRAMPING. 120 tablet 2 4 Active simvastatin (ZOCOR) 40 MG tabletIndications:H yperlipidemia, unspecified hyperlipidemia type take one tablet by mouth at bedtime 90 tablet 1 4 Active levothyroxine (SYNTHROID) 88 MCG tabletIndications:O ther specified hypothyroidism TAKE 1 TABLET (88 MCG TOTAL) BY MOUTH EVERY MORNING. 30 tablet 4 Active oxybutynin (DITROPAN) 5 MG tabletIndications:U rinary incontinence, unspecified type TAKE ONE TABLET BY MOUTH TWICE A DAY DIRECTED 60 tablet 4 Active donepezil (ARICEPT) 10 MG TabIndications:Merrick ry change TAKE 1 TABLET (10 MG TOTAL) BY MOUTH NIGHTLY AT BEDTIME. 30 tablet 4 Active omeprazole (PRILOSEC) 40 MG capsuleIndications: Epigastric abdominal pain,Gastroesophage al reflux disease, unspecified whether esophagitis present TAKE 1 CAPSULE (40 MG TOTAL) BY MOUTH TWO (2) (TWO) TIMES DAILY. 60 capsule 4 Active Hospital, Clinic, or Other Facility Administered Medication Ordered Dose Route Frequency Start Date End Date Status hyaluronate sodium (EUFLEXXA) injection 20 mgIndications:Localized osteoarthritis of right knee 20 mg IX Once 09/25/2024 09/25/2024 Ended hyaluronate sodium (EUFLEXXA) injection 20 mgIndications:Localized osteoarthritis of left knee 20 mg IX Once 09/25/2024 09/25/19 25 Ended lidocaine (XYLOCAINE) 2 % injection 3 mLIndications:Localized osteoarthritis of left knee,Localized osteoarthritis of right knee 3 mL Other Once 09/25/2024 09/25/2024 Ended Active Problems Problem Noted Date Diagnosed Date Localized osteoarthritis of right knee 3 Elevated blood pressure reading 06/11/2020 Localized osteoarthritis of left knee 06/06/2020 Chronic pain of left knee 06/06/2020 Primary osteoarthritis of both knees 06/06/2020 Overview (07/28/2023): Last Assessment & Plan: Condition: stable Self [...] if symptoms worsen or fail to improve Gastroesophageal reflux disease 03/13/2020 Arthritis of left hand 03/13/2020 BMI 33.0-33.9,adult 03/13/2020 Acute vaginitis 07/26/2019 Acute pain of right shoulder 09/29/2018 Memory change 09/23/2018 Other specified hypothyroidism 09/23/2018 Urinary incontinence 09/23/2018 Hyperlipidemia 09/23/2018 Plantar fasciitis 10/09/2015 Cervical radiculopathy 09/19/2015 Cervicalgia 08/01/2015 Chronic pain 08/01/2015 Lumbago 08/01/2015 Spondylosis of lumbosacral region 08/01/2015 Resolved Problems Problem Noted Date Diagnosed Date Resolved Date Screening for malignant neoplasm of cervix 10/26/2017 09/16/2020 Encounter for screening for malignant neoplasm of rectum 10/08/2015 09/16/2020 Encounters Date Type Department Care Team Description 09/25/2024 11:00 AM METAL STUD FRAMER Office Visit [facility] [address] [place] [address] Say Gaviria MD Injection (Bilateral Euflexxa #1) 09/25/2024 Travel 09/15/2024 Telephone [facility] [address] [phone] Mati North, DO Lab Results 09/07/2024 Scan [facility] SR[facility] Scanned, Doc [facility] Lab (SCAN) 09/07/2024 Scan [facility] INFO SRVCS Scanned, Doc [facility] Group Lab (SCAN) 09/07/2024 Telephone [facility] [address] [place] [address] Say Gaviria MD Appointment Request 08/21/2024 Telephone [facility] Internal [address] [phone] Mati North, DO Information 08/04/2024 2:20 PM METAL STUD FRAMER Office Visit [facility] [address] [address] Mati North, DO Shoulder Pain; Back Pain 08/04/2024 Scan [facility] SRVCS Scanned, Doc [facility] 08/04/2024 Travel 07/25/[address] [address] Mati North, DO Appointment Request 07/18/[address] [phone] Mati North, DO Error 07/12/2024 MyChart Message Enc [address] [phone] Mati North, DO Shoulder pain 07/07/2024 Scan [facility] SRVCS Scanned, Doc [facility] from Last 3 Months Immunizations Name Administration Dates Next Due FLUAD (IIV, Trivalent, 0.5 M L Pre-filled Syringe) 07/07/2024 Fluzone High Dose - >Age 65 (Prefilled Syringe) 06/16/2023,06/22/2022 Influenza Adult (Generic) 06/16/2023,,05/31/2020,2018,08/26/2016,07/19/2015 PFIZER COVID-19 (ORIGINAL FORMULATION, PURPLE CAP) mRNA, LNP-S, PF, 30 MCG/0.3 ML DOSE 09/20/2021,11/29/2020,11/11/2020 PFIZER COVID-19 BIVALENT (12 +) mRNA, LNP-S, PF, 30 MCG/0.3 ML DOSE 06/22/2022 Pneumococcal (Prevnar 20) 06/22/2022 Shingrix 09/30/2023,09/09/2022 Social History Tobacco Use Types Packs/Day Years Used Date Smoking Tobacco: Never Smokeless Tobacco: Never Tobacco Cessation:Counseling Given: No Comments:na Alcohol Use Standard Drinks/Week Comments Never 0 (1 standard drink = 0.6 oz pur e alcohol) AUDIT-C Answer Date Recorded Frequency of Alcohol Consumption Never 09/23/2018 Average Number of Drinks Not on file 019 Frequency of Binge Drinking Not on file 08/31 PHQ-2 Answer Date Recorded Patient Health Questionnaire-2 Score 1 11/17/2023 Comments No Sex and Gender Information Value Date Recorded Sex Assigned at Female 10/15/2022 9:55 AM METAL STUD FRAMER Legal Sex Female 4:25 PM METAL STUD FRAMER Gender Identity Female 10/15/2022 9:55 AM METAL STUD FRAMER Sexual Orientation Straight 10/15/2022 9: 55 AM METAL STUD FRAMER Last Filed Vital Signs Vital Sign Reading Time Taken Comments Blood Pressure 165/74 09/25/2024 11:17 AM METAL STUD FRAMER Pulse 61 09/25/2024 11:17 AM METAL STUD FRAMER Temperature 36.5 ??C (97.7 ??F) 09/25/2024 1 1:17 AM METAL STUD FRAMER Respiratory Rate 16 08/04/2024 2:22 PM METAL STUD FRAMER Oxygen Saturation 97% 08/04/2024 2:22 PM METAL STUD FRAMER Inhaled Oxygen Concentration - - Weight 80.6 kg (177 lb 12.8 oz) 025 11:17 AM METAL STUD FRAMER Height 165.1 cm (5' 5 ) 08/04/2024 2:22 PM METAL STUD FRAMER Body Mass Index 29.59 08/04/2024 2:22 PM METAL STUD FRAMER Plan of Treatment Upcoming Encounters Date Type Department Care Team (Late st Contact Info) Description 10/03/2024 1:40 PM METAL STUD FRAMER Office Visit [facility] [address] [place] [address] Say Gaviria MD [address] [place] [address] 10/10/2024 1:00 PM METAL STUD FRAMER Office Visit [facility] [address] [place] [address] Say Gaviria MD [address] [place] [address] 11/02/2024 8:00 AM METAL STUD FRAMER Office Visit [facility] [address] [phone] Mati North, [address] [place] [address] Health Maintenance Due Date Last Done Comments Colorectal Cancer Screening Colonoscopy (10 Years) 1950 DTaP, Tdap and Td Vaccines (1 - Tdap) 01/12/1968 RSV Immunization or 60+ Years (1 - 1-dose 75+ series) 01/12/2024 PHQ-2 (Physician [place]) 08/30/2024 11/17/2023 COVID-19 Vaccine ( season) 2024 07/07/2024, 06/22/2022, 09/20/2021, Additional history exists Pneumococcal Vaccine: 65+ Years Completed 06/22/2022 Hepatitis C Completed 07/01/2022 Dexa Scan (General) Completed 08/13/2023, Zoster Vaccines Completed 09/30/2023, 09/09/2022 Influenza Adult Completed 07/07/2024, 05/30, 06/16/2023, Additional history exists Meningococcal B Vaccine Aged Out No l onger eligible based on patient's age to complete this topic Meningococcal Vaccine Aged Out No forrest carmen eligible based on patient's age to complete this topic RSV Immunizations Under 20 Months Aged Out No longer eligible based on patient's age to complete this topic Medical Devices Implanted Type Area Algebra Teacher Device Identifier Shelf Expiration Date Model / Serial / Lot Stent Ureteral [place] Sci Contour 6fr X 24cm - [id number] Implanted:Qty : 1 on 09/30/2021 by Greg Pabon MD at [facility] Stent Right: Ureter [employer] [id number] 06/23/2024 [id number] Description:String removed Procedures Procedure Name Priority Date/Time Associated Diagnosis Comments OUS GUIDE NEEDLE PLCMT ORTHO Routine 09/25/2024 11:19 AM METAL STUD FRAMER Localized osteoarthritis of left knee Localized osteoarthritis of right knee ARTHROCENTESIS MAJOR JOINT W/ ULTRASOUND GUIDANCE Routine 09/25/2024 11:00 AM METAL STUD FRAMER Localized osteoarthritis of left knee Localized osteoarthritis of right knee OUTSIDE LAB (SCAN ORDER) Routine 09/07/2024 OUTSIDE LAB (SCAN ORDER) 09/07/2024 DRAIN/INJECT LARGE JOINT/BURSA Routine 08/04/2024 2:20 PM METAL STUD FRAMER Chronic pain of both shoulders DRAIN/INJECT LARGE JOINT/BURSA Routine 08/04/2024 2:20 PM METAL STUD FRAMER Chronic pain of both shoulders BONE DENSITY/DEXA Routine 08/13/2023 2:0 1 PM METAL STUD FRAMER Osteopenia of multiple sites Postmenopausal HEPATITIS C ANTIBODY 07/01/2022 11:48 AM CDT from Last 3 Months or Most Recently Relevant to Health Maintenance Results * OUS GUIDE NEEDLE PLCMT ORTHO (09/25/2024 11:19 AM METAL STUD FRAMER) Anatomical Region Laterality Modality Ultrasound 09/25/2024 11:1 9 AM METAL STUD FRAMER Narrative 09/25/2024 11:19 AM METAL STUD FRAMER This report does not contain a radiologist's interpretation. Please review associated procedure and/or operative report. Procedure Note Rhiannon Ruth MD - 09/25/2024 This report does not contain a radiologist's interpretation. Please review associated procedure and/or operative report. us Say Gaviria MD ULTRASOUND Final Result * ARTHROCENTESIS MAJOR JOINT W/ ULTRASOUND GUIDANCE (09/25/2024 11:00 AM METAL STUD FRAMER) Narrative Say Gaviria MD - 09/25/2024 11:00 AM METAL STUD FRAMER Say Gaviria MD ? 09/25/2024 ??1:41 PM *Lg Jt Arthrocentesis: bilateral knee Euflexxa injection bilateral knees on 09/25/2024 11:00 AM Indications: pain Details: 22 G needle, ultrasound-guided lateral approach Medications (Right): (2 mL Euflexxa injected into the knee after local anesthesia with 3 cc 2% lidocaine) Medications (Left): (2 mL Euflexxa injected into the knee after local anesthesia with 3 cc 2% lidocaine) Outcome: tolerated well, no immediate complications Procedure, treatment alternatives, risks and benefits explained, specific risks discussed. Consent was given by the patient. Patient was prepped and draped in the usual sterile fashion. Say Gaviria MD PROCEDURE/MINOR SURGICAL ORDERA BLES Final Result * OUTSIDE LAB (09/07/2024) Only the most recent of2 resultswithin the time period is included. HGB A1C 6.5 % HS ONBASE 09/07/2024 Doc [facility] Scanned SCANNING Final Resu lt [facility] ONBASE * DRAIN/INJECT LARGE JOINT/BURSA (08/04/2024 2:20 PM METAL STUD FRAMER) Narrative Mati North DO - 08/04/2024 2:20 PM METAL STUD FRAMER Mati North DO ? 08/04/2024 ??3:42 PM *Joint Aspiration/Injection Date/Time: 08/04/2024 2:20 PM Performed by: Mati North DO Authorized by: Mati North DO ?? Consent: ??Consent obtained: ??Written ??Consent given by: ??Patient ??Risks, benefits, and alternatives were discussed: yes ?Risks discussed: ??Bleeding, infection and pain ??Alternatives discussed: ??No treatment Location: ??Location: ??Shoulder ??Shoulder: ??L subacromial bursa Anesthesia: ??Anesthesia method: ??Topical application ??Topical anesthetic: ??LET Procedure details: ??Preparation: Patient was prepped and draped in usual sterile fashion ?Needle gauge: 25 G. ??Ultrasound guidance: no ?Approach: ??Posterior ??Steroid injected: yes ?Specimen collected: no ?? Post-procedure details: ??Dressing: ??Adhesive bandage ??Procedure completion: ??Tolerated well, no immediate complications Mati North DO PROCEDURE/MINOR SURGICAL ORDERABLES Final Result * DRAIN/INJECT LARGE JOINT/BURSA (08/04/2024 2:20 PM METAL STUD FRAMER) Mati Jones DO - 08/04/2024 2:20 PM METAL STUD FRAMER Mati North DO ? 08/04/2024 ??3:42 PM *Joint Aspiration/Injection Date/Time: 08/04/2024 2:20 PM Performed by: Mati North DO Authorized by: Mati North DO ?? Consent: ??Consent obtained: ??Written ??Consent given by: ??Patient ??Risks, benefits, and alternatives were discussed: yes ?Risks discussed: ??Infection, bleeding and pain ??Alternatives discussed: ??Observation Location: ??Location: ??Shoulder ??Shoulder: ??R subacromial bursa Anesthesia: ??Anesthesia method: ??Topical application ??Topical anesthetic: ??LET Procedure details: ??Preparation: Patient was prepped and draped in usual sterile fashion ?Needle gauge: 23 G. ??Ultrasound guidance: no ?Approach: ??Posterior ??Steroid injected: yes ?Specimen collected: no ?? Post-procedure details: ??Dressing: ??Adhesive bandage ??Procedure completion: ??Tolerated well, no immediate complications Mati North DO PROCEDURE/MINOR SURGICAL ORDERABLES Final Result * BONE DENSITY/DEXA (08/13/2023 2:01 PM METAL STUD FRAMER) Anatomical Region Laterality Modality Bone Mammography 08/13/2023 4:06 PM METAL STUD FRAMER Impressions 08/13/2023 4:07 PM METAL STUD FRAMER IMPRESSION: 1. WHO Classification: Osteopenia. 2. Interval decrease in bone mineral density. RECOMMENDATIONS: All patients should ensure an adequate intake of dietary calcium and vitamin D. The NOF recommend adults under the age of 50 need 1000 mg of calcium and 400-800 IU of vitamin D daily. Effective therapy for the prevention and treatment of osteoporosis include bisphosphonates. FOLLOW-UP: People with diagnosed cases of osteoporosis or at high risk for fracture should have regular bone mineral density test. For patients eligible for Medicare, routine testing is allowed once every 2 years. Testing frequency can be increased to one year for patients who have rapidly progressing disease, those who are receiving or discontinuing medical therapy to restore bone mass, or have additional risk factors. Ordered By: MATI NORTH Interpreted By: Osvaldo Lang, 08/13/2023 4:06 PM Narrative 08/13/2023 4:07 PM METAL STUD FRAMER EXAMINATION: BONE DENSITY/DEXA INDICATIONS: Other specified disorders of bone density and structure, multiple sites, Asymptomatic menopausal state COMPARISON: 08/04/2021 TECHNIQUE: DEXA bone mineral density evaluation was performed in the AP projection over the lumbar spine and both hips utilizing standard imaging techniques. FINDINGS: The BMD measured at the AP spine L1-L4 is 0.993 g/cm? with a T-score of -0.5 (previously 1.024 g/cm?) with a T-score of -0.2). The BMD measured at the left femoral neck is 0.629 g/cm? with a T-score of -2.0 (previously 0.670 g/cm?) with a T-score of -1.6). The BMD measured at the left hip is 0.902 g/cm? with a T-score of -0.3 (previously 0.986 g/cm?) with a T-score of 0.4). The BMD measured at the right femoral neck is 0.748 g/cm? with a T-score of -0.9 (previously 0.770 g/cm?) with a T-score of -0.7). The BMD measured at the right hip is 0.942 g/cm? with a T-score of 0.0 (previously 0.975 g/cm?) with a T-score of 0.3). FRAX 10-year fracture risk: Major Osteoporotic Fracture: 15% Hip Fracture: 3.9% Procedure Note Osvaldo Lang MD - 08/13/2023 EXAMINATION: BONE DENSITY/DEXA INDICATIONS: Other specified disorders of bone density and structure,multiple sites, Asymptomatic menopausal state COMPARISON: 08/04/2021 TECHNIQUE: DEXA bone mineral density evaluation was performed in the APprojection over the lumbar spine and both hips utilizing standard imagingtechniques. FINDINGS: The BMD measured at the AP spine L1-L4 is 0.993 g/cm? with a T-score of-0.5 (previously 1.024 g/cm?) with a T-score of -0.2). The BMD measured at the left femoral neck is 0.629 g/cm? with a T-score of-2.0 (previously 0.670 g/cm?) with a T-score of -1.6). The BMD measured at the left hip is 0.902 g/cm? with a T-score of - 0.3(previously 0.986 g/cm?) with a T-score of 0.4). The BMD measured at the right femoral neck is 0.748 g/cm? with a T-scoreof -0.9 (previously 0.770 g/cm?) with a T-score of -0.7). The BMD measured at the right hip is 0.942 g/cm? with a T-score of 0.0(previously 0.975 g/cm?) with a T-score of 0.3). FRAX 10-year fracture risk: Major Osteoporotic Fracture: 15% Hip Fracture: 3.9% IMPRESSION: 1. WHO Classification: Osteopenia. 2. Interval decrease in bone mineral density. RECOMMENDATIONS: All patients should ensure an adequate intake of dietary calcium andvitamin D. The NOF recommend adults under the age of 50 need 1000 mg ofcalcium and 400-800 IU of vitamin D daily. Effective therapy for theprevention and treatment of osteoporosis include bisphosphonates. FOLLOW-UP: People with diagnosed cases of osteoporosis or at high risk for fractureshould have regular bone mineral density test. For patients eligible forMedicare, routine testing is allowed once every 2 years. Testing frequencycan be increased to one year for patients who have rapidly progressingdisease, those who are receiving or discontinuing medical therapy torestore bone mass, or have additional risk factors. Ordered By: MATI NORTH Interpreted By: Osvaldo Lang, 08/13/2023 4:06 PM us Mati North DO DEXA Final Re sult * HEPATITIS C ANTIBODY (07/01/2022 11:48 AM CDT) HEPATITIS C AB <0.1 0.0 - 0.9 s/co ratio [facility] 1 Comment: ?Negative: ? < 0.8 ? Indeterminate: 0.8 - 0.9 ?Positive: ? > 0.9 HCV antibody alone does not differentiate between previous resolved infection and active infection. The CDC and current clinical guidelines recommend that a positive HCV antibody result be followed up with an HCV RNA test to support the diagnosis of acute HCV infection. [facility] offers Hepatitis C Virus (HCV) RNA, Diagnosis, RONNELL (462952) and Hepatitis C Virus (HCV) Antibody with reflex to Quantitative Real-time PCR ([id number]). 07/01/2022 11:4 8 AM CDT 07/01/2022 Narrative [facility] - 07/02/2022 8:16 AM CDT Performed at: ??01 - [facility] [address] ??[id number] Gauge And Weigh Machine Adjuster: Patricio Crawford PhD, Phone: ??[phone] us Mati North DO LABORATORY Final Re sult [facility] [address] [place] [address] [facility] 1 from Last 3 Months or Most Recently Relevant to Health Maintenance Insurance WILDER Advance Directives * Full Code (Latest Code Status on File) Date Activated Date Inactivated Comments 09/30/2021 4:50 PM 09/30/2021 7:26 PM Care Teams Odd Bundle Worker Relationship Specialty Start Date End Date Mati North DO [address] [place] [id number] PCP - General FAMILY PRACTICE 09/24/21 Mati North DO [address] [place] [id number] FAMILY PRACTICE 09/24/21
--- OUTSIDE RECORDS SUMMARY | 2024-09-28 14:38 | XMS_ITS | Encounter Summary ---
Author Organization [facility] Address [address] [place] [address]. [place] [address] [place] [address] Care Team Providers Care Curing Supervisor Name Role Phone Manjit Aldridge DO Primary Care Provider + Manjit Aldridge DO Unavailable [phone] Encounter Details Date Type Department Care Team (Late st Contact Info) Description 01/29/2022 SimpleHoney Message Enc [facility] Family [facility] Internal Medicine [address] [phone] [facility] Provider Lab results Social History Tobacco Use Types Packs/Day Years [...] please move on to questions 3-9 0 02/02/2022 Comments No Sex and Gender Information Value Date Recorded Sex Assigned at Female 10/15/2022 9:55 AM HEAT AND FROST INSULATOR HELPER Legal Sex Female 4:25 PM HEAT AND FROST INSULATOR HELPER Gender Identity Female 10/15/2022 9:55 AM HEAT AND FROST INSULATOR HELPER Sexual Orientation Straight 10/15/2022 9: 55 AM HEAT AND FROST INSULATOR HELPER COVID-19 Exposure Response Date Recorded In the last 10 days, have yo u been in contact with someone who was confirmed or suspected to have Coronavirus/COVID-19? No / Unsure 01/29/2022 10:30 AM CDT documented as of this encounter Plan of Treatment Upcoming Encounters Date Type Department Care Team (Late st Contact Info) Description 10/03/2024 1:40 PM HEAT AND FROST INSULATOR HELPER Office Visit [facility] [address] [place] [address] Say Gaviria MD [address] [place] [address] 10/10/2024 1:00 PM HEAT AND FROST INSULATOR HELPER Office Visit [facility] [address] [place] [address] Say Gaviria MD [address] [place] [address] 11/02/2024 8:00 AM HEAT AND FROST INSULATOR HELPER Office Visit [facility] [address] [phone] Manjit Aldridge DO [address] [place] [address] documented as of this encounter Visit Diagnoses Not on filedocumented in this encounter Additional Health Concerns Assessment Noted Time PHQ-9 Depression Total Score: 0 10/08/19 22 2:41 PM HEAT AND FROST INSULATOR HELPER documented as of this encounter Care Teams Curing Supervisor Relationship Specialty Start Date End Date Manjit Aldridge DO [address] [place] [id number] PCP - General FAMILY PRACTICE 09/24/21 Manjit Aldridge DO [address] [place] [id number] FAMILY PRACTICE 09/24/21 documented as of this encounter
--- OUTSIDE RECORDS SUMMARY | 2024-09-28 14:38 | XMS_ITS | Encounter Summary ---
Author Organization [facility] Address [address] [place] [address]. [place] [address] [place] [address] Care Team Providers Care Senior Ux Designer Name Role Phone Manjit Aldridge DO Primary Care Provider + Manjit Aldridge DO Unavailable [phone] Encounter Details Date Type Department Care Team (Late st Contact Info) Description 01/03/2022 MyChart Message Enc [facility] Medical [facility] Family & Internal Medicine [facility] [address] [place] [address] Manjit Aldridge DO [address] [place] [address] Artritis Social History Tobacco Use Types Packs/Day Years [...] Sex Assigned at Female 10/15/2022 9:55 AM TECHNOLOGY APPLICATIONS ENGINEER Legal Sex Female 4:25 PM TECHNOLOGY APPLICATIONS ENGINEER Gender Identity Female 10/15/2022 9:55 AM TECHNOLOGY APPLICATIONS ENGINEER Sexual Orientation Straight 10/15/2022 9: 55 AM TECHNOLOGY APPLICATIONS ENGINEER COVID-19 Exposure Response Date Recorded In the last 10 days, have yo u been in contact with someone who was confirmed or suspected to have Coronavirus/COVID-19? No / Unsure 12/31/2021 8:47 AM CDT documented as of this encounter Progress Notes * Manjit Aldridge DO - 01/05/2022 12:49 PM CDT Is pt referring to the Depo-medrol injection we gave systemically (as opposed to a specific joint)?If so, we could do this. We might have to use Kenalog instead. documented in this encounter Plan of Treatment Upcoming Encounters Date Type Department Care Team (Late st Contact Info) Description 10/03/2024 1:40 PM TECHNOLOGY APPLICATIONS ENGINEER Office Visit [facility] Orthopedic & Sports Medicine [facility] [address] [place] [address] Say Gaviria MD [address] [place] [address] 10/10/2024 1:00 PM TECHNOLOGY APPLICATIONS ENGINEER Office Visit [facility] [address] [place] [address] Say Gaviria MD [address] [place] [address] 11/02/2024 8:00 AM TECHNOLOGY APPLICATIONS ENGINEER Office Visit [facility] Family & Internal Medicine [address] [address] Manjit Aldridge DO [address] [place] [address] documented as of this encounter Visit Diagnoses Not on filedocumented in this encounter Additional Health Concerns Assessment Noted Time PHQ-9 Depression Total Score: 0 10/08/19 2:41 PM TECHNOLOGY APPLICATIONS ENGINEER documented as of this encounter Care Teams Senior Ux Designer Relationship Specialty Start Date End Date Manjit Aldridge DO [address] [place] [address] PCP - General FAMILY PRACTICE 09/24/21 Manjit Aldridge DO [address] [place] [address] FAMILY PRACTICE 09/24/21 documented as of this encounter
--- OUTSIDE RECORDS SUMMARY | 2024-09-28 14:38 | XMS_ITS | Encounter Summary ---
Author Organization [facility] Address [address] [place] [address]. [place] [address] [place] [address] Care Team Providers Care Senior Marketing Specialist Name Role Phone Manjit Aldridge DO Primary Care Provider + Manjit Aldridge DO Unavailable [phone] Encounter Details Date Type Department Care Team (Late st Contact Info) Description 07/12/2024 MyChart Message Enc [facility] Medical Group Family & Internal Medicine [facility] [address] [place] [address] Manjit Aldridge DO [address] [place] [address] Shoulder pain Social History Tobacco Use Types Packs/Day Years [...] Sex Assigned at Female 10/15/2022 9:55 AM RAIL GRINDER Legal Sex Female 4:25 PM RAIL GRINDER Gender Identity Female 10/15/2022 9:55 AM RAIL GRINDER Sexual Orientation Straight 10/15/2022 9: 55 AM RAIL GRINDER documented as of this encounter Progress Notes * Manjit Aldridge DO - 07/13/2024 3:44 PM CST Pt is due for regular visit, as we haven't seen her in about a year. Would be best to see her for regular visit and have her do shoulder injection with Dr. Gaviria's office. We'd have to have separate appointments to do follow-up on one of them and injections on separate visit. Injections also cannothave been done in the past 3 months (last OV with Dr. Gaviria was December per available records). GRINDER documented in this encounter Plan of Treatment Upcoming Encounters Date Type Department Care Team (Late st Contact Info) Description 10/03/2024 1:40 PM RAIL GRINDER Office Visit [facility] Orthopedic & Sports Medicine [facility] [address] [place] [address] Say Gaviria MD [address] [place] [address] 10/10/2024 1:00 PM RAIL GRINDER Office Visit [facility] Orth[facility] [address] [place] [address] Say Gaviria MD [address] [place] [address] 11/02/2024 8:00 AM RAIL GRINDER Office Visit [facility] Family & Internal Medicine [address] [address] Manjit Aldridge DO [address] [place] [address] documented as of this encounter Visit Diagnoses Not on filedocumented in this encounter Additional Health Concerns Assessment Noted Time PHQ-9 Depression Total Score: 0 10/08/19 22 2:41 PM RAIL GRINDER documented as of this encounter Care Teams Senior Marketing Specialist Relationship Specialty Start Date End Date Manjit Aldridge DO [address] [place] [address] PCP - General FAMILY PRACTICE 09/24/21 Manjit Aldridge DO [address] [place] [address] FAMILY PRACTICE 09/24/21 documented as of this encounter
--- OUTSIDE RECORDS SUMMARY | 2024-09-28 14:38 | XMS_ITS | Data Portability ---
Author Organization [facility] Address [address] [place] [address] Care Team Providers Care Nursery Supervisor Name Role Phone SORAYA GOLDEN Urologist Assessment Encounter Date Assessment Date Assessment LastModified by Organization Details LastModified Time 06/29/2020 06/29/2020 Annual gynecological exam performed. Patient will come back in a year unless there are new symptoms. [email or web address] Not available 06/29/2020 11:37:50 Plan of Treatment Reminders Order Date Submit Date Provider Last Modified By Organization Details Last Modified Time Details Appointments None recorded. Lab urinalysis , dipstick 2019 020 [address] [address] [facility], [address], [place], [address], 0 11:03:42 Referral None recorded. Procedures None recorded. Surgeries None recorded. Imaging None recorded. Medication Orders None recorded. Patient TargetsNo targets recorded. Patient InstructionsNo instructions recorded. Reason for Referral None Reported. Results Created Date Observation Date Name Description Value Unit Range Abnormal Flag Note LastModifiedBy Organization Detail LastModifiedTime 06/29/2006/29/2020 urina lysis , dipst ick Leukocytes neg Not Available [facility] [address], [place], [address], 06/29/2020 12:18:36 06/29/2006/29/2020 urina lysis , dipst ick Blood ++ Not Available [facility] [address], [place], [address], 06/29/2020 12:18:36 06/29/20 20 06/29/2020 urina lysis , dipst ick Leukocytes neg Not Available [facility] [address], [place], [address], 06/29/2020 12:17:55 06/29/20 20 06/29/2020 urina lysis , dipst ick Blood ++ Not Available [facility] [address], [place], [address], 06/29/2020 12:17:55 07/01/20 20 07/02/2020 urina lysis compl ete, refle x cultu re urine type Voided Not Available [facility] [address] [place] [address] [address], [place], [address], 07/02/2020 12:56:20 07/01/20 20 07/02/2020 urina lysis compl ete, refle x cultu re urine color DK YELLOW yellow Not Available [facility] [address] [place] [address] [address], [place], [address], 07/02/2020 12:56:20 07/01/20 20 07/02/2020 urina lysis compl ete, refle x cultu re urine appearance CLOUDY clear abnormal Not Available [facility] [address] [place] [address] [address], [place], [address], 07/02/2020 12:56:20 07/01/20 20 07/02/2020 urina lysis compl ete, refle x cultu re urine specific gravity 1.023 1.005- 1.030 Not Available [facility] [address] [place] [address] [address], [place], [address], 07/02/2020 12:56:20 07/01/20 20 07/02/2020 urina lysis compl ete, refle x cultu re urine pH 7.0 5.0-9. 0 Not Available [facility] [address] [place] [address] [address], [place], [address], 07/02/2020 12:56:20 07/01/20 20 07/02/2020 urina lysis compl ete, refle x cultu re urine leukocytes esterase NEGATI VE negati ve Not Available [facility] [address] [place] [address] [address], [place], [address], 07/02/2020 12:56:20 07/01/20 20 07/02/2020 urina lysis compl ete, refle x cultu re urine nitrites NEGATI VE negati ve Not Available [facility]) [address] [place] [address] [address], [place], [address], 07/02/2020 12:56:20 07/01/20 20 07/02/2020 urina lysis compl ete, refle x cultu re urine protein TRACE negati ve abnormal Not Available [facility]) [address] [place] [address] [address], [place], [address], 07/02/2020 12:56:20 07/01/20 20 07/02/2020 urina lysis compl ete, refle x cultu re urine glucose NEGATI VE negati ve Not Available [facility] [address] [place] [address] [address], [place], [address], 07/02/2020 12:56:20 07/01/20 20 07/02/2020 urina lysis compl ete, refle x cultu re urine ketones NEGATI VE negati ve Not Available [facility] [address] [place] [address] [address], [place], [address], 07/02/2020 12:56:20 07/01/20 20 07/02/2020 urina lysis compl ete, refle x cultu re urine urobilinogen 0.2 E.U./ dL 0.2-1. 0 Not Available [facility] [address] [place] [address] [address], [place], [address], 07/02/2020 12:56:20 07/01/20 20 07/02/2020 urina lysis compl ete, refle x cultu re urine bilirubin NEGATI VE negati ve Not Available [facility] [address] [place] [address] [address], [place], [address], 07/02/2020 12:56:20 07/01/20 20 07/02/2020 urina lysis compl ete, refle x cultu re urine blood NEGATI VE negati ve Not Available [facility] [address] [place] [address] [address], [place], [address], 07/02/2020 12:56:20 07/01/20 20 07/02/2020 urina lysis , micro scopi c urine WBC 0-2 /hpf 0-2 Not Available [facility] [address] [place] [address] [address], [place], [address], 07/02/2020 12:56:20 07/01/20 20 07/02/2020 urina lysis , micro scopi c urine RBC 6-10 /hpf 0-2 abnormal Not Available [facility] [address] [place] [address] [address], [place], [address], 07/02/2020 12:56:20 07/01/20 20 07/02/2020 urina lysis , micro scopi c urine epithelial cells 0-2 /hpf 0-2 Not Available [facility] [address] [place] [address] [address], [place], [address], 07/02/2020 12:56:20 07/01/20 20 07/02/2020 urina lysis , micro scopi c urine bacteria NONE SEEN /hpf none seen Not Available [facility] [address], [place], [address], 07/02/2020 12:56:20 07/01/20 20 07/02/2020 urina lysis , micro scopi c urine casts 2-5 Hyalin e /lpf 0-2 hyalin e abnormal Not Available [facility] [address], [place], [address], 07/02/2020 12:56:20 Result Notes None recorded. Problems Name Problem SNOMED Code Status Onset Date Resolution Date Notes Provider Name and Address Organization Details Recorded Time Screening for malignant neoplasm of rectum Active 2015 Encounter for screening for malignant neoplasm of rectum;Pra ctice ID: [id number] Not Available [facility] 0 21:23:55 Evaluation finding Active 2016 Hematuria, unspecifie d;Practice ID: 0001 Not Available [facility] 0 21:23:[address] Concept Active 2016 Encntr for education manager exam (general) (routine) w/o abn findings;P ractice ID: 0001 Not Available [facility] 0 21:23:[address] Concept Active 2017 Encounter for general adult medical exam w abnormal findings;P ractice ID: 0001 Not Available [facility] 0 21:23:56 Acute vaginitis 07615225 Active 2018 Acute vaginitis; Practice ID: 0001 Not Available [facility] 0 21:23:[address] Concept Active 2015 Encntr for general adult medical exam w/o abnormal findings;R ecorded Elsewhere: No Locatio n: [facility] Leah rce: EHR Chroni c: N Practice ID: [id number] Billa ble Time: 02:45:00 PM Not Available [facility] 0 21:23:56 Screening for malignant neoplasm of cervix Active 2017 Screening for malignant neoplasms of the cervix;Rec orded Elsewhere: No Locatio n: [facility] Leah rce: EHR Chroni c: N Practice ID: 0001 Celso ble Time: 03:30:00 PM Not Available [facility] 0 21:23:56 Problem Notes None recorded. Medical Equipment None Reported. Allergies No known drug allergies Medications Name Sig Start Date Stop Date Status Note LastModified by Organization Details LastModified Time cefuroxim e axetil 250 mg tablet 06/29 completed Not Available Not Available Not Available fluconazo le 150 mg tablet take 1 tablet by oral route once 06/29 completed Not Available Not Available Not Available hydrocodo ne 5 mg-acetam inophen 325 mg tablet TK 1 T PO Q 6 H PRN 06/29 completed Not Available Not Available Not Available prednison e 20 mg tablet 06/29 completed Not Available Not Available Not Available metronida zole 500 mg tablet take 1 tablet by oral route every 12 hours 06/29 completed Not Available Not Available Not Available omeprazol e 40 mg capsule,d elayed release TK 1 C PO BID active Not Available Not Available No t Available tramadol 50 mg tablet 06/29 completed Not Available Not Available Not Available simvastat in 40 mg tablet 06/29 completed Not Available Not Available Not Available levothyro xine 100 mcg tablet active Not Available Not Available Not Available Metrogel Vaginal 0.75 % (37.5 mg/5 gram) insert 1 applicat orful by vaginal route every day at bedtime for 5 nights 2019 active Prescrib ed Elsewher e: No Locat ion: [facility] M odify By: cristian andrews DateTime : 08/31/19 03:50:21 PM Not Available Not Available Not Available famotidin e 20 mg tablet TAKE 1 TABLET BY MOUTH TWICE DAILY 06/29 completed Not Available Not Available Not Available tamsulosi n 0.4 mg capsule TK ONE C PO D FOR 7 DAYS 06/29 completed Not Available Not Available Not Available simvastat in 20 mg tablet 06/29 completed Not Available Not Available Not Available oxybutyni n chloride 5 mg tablet active Not Available Not Available Not Available metronida zole 0.75 % topical gel 06/29 completed Not Available Not Available Not Available metoclopr amide 10 mg tablet 06/29 completed Not Available Not Available Not Available Vesicare 5 mg tablet take 1 tablet by oral route every other day 2017 active Prescrib ed Elsewher e: No Locat ion: [facility] M odora By: pita Walter ncounter DateTime : 10/26/19 18 03:30:00 PM Not Available Not Available Not Available simvastat in active Not Available Not Available Not Available donepezil active Not Available Not Isabella ilable Not Available Fluad Quad 2002-5990 (65yr up)(PF) 60 mcg (15 mcg x 4)/0.5mL IM syringe 06/29 completed Not Available Not Available Not Available Vitals Date Recorded Body height Body mass index (BMI) Body weight Systolic blood pressure Diastolic blood pressure Provider Name and Address Organization Details Last Updated DateTime 06/29/2020 144.78 cm 37.9 kg/m2 95114.66 g 166 mm[Hg] 93 mm[Hg] Nohelia [facility] 0 11:38:14 Social History None recorded. Functional Status None recorded. Mental Status None recorded. Family History Nothing Reported. Medical History No medical history recorded. Gynecological HistoryNo gynecological history recorded. Obstetrics History GPAL:G 0 P 0 0 0 0 Past Encounters Encounter ID Performer Location Encounter Start Date Encounter Closed Date Diagnosis/Indication Diagnosis SNOMED-CT Code Diagnosis ICD10 Code Diagnosis Note [id number] [facility] [address] [address] 06/29/2020 11:10:48 07/01/2020 17:20:54 Urinary tract infectious disease 83233837 N39.0 Urine sent for complaints of urgency & dysuria started 2 days ago. Gynecologi c examination 88940631 Z01.419 Take Calcium with Vitamin D 12-1500mg daily. Do monthly self breast exams. It is advised to get annual flu shot in the fall and she could obtain at [facility] or [facility] care clinic. If you haven't received the Tdap vaccine in the last 10 years you should obtain one as well. Have mammogram yearly, bone density every 2-3 years and colonoscop y every 5-10 years depending on findings and history. Engage in daily exercise of low impact aerobic exercise 45-60 minutes 4-5 times weekly. Avoid tobacco and illicit drugs as well as using moderation with alcohol intake less than 1-2 8 oz beverages daily. This lifestyle behavior pattern will lead to less health conditions and longer life span. If BMI greater than 25 weight watchers or dietary consult advised. Questions have been answered. Patient appears to understand instructio ns, but if you have any further questions call or respond to this email Monogamous relationsh ip Neg pap hx Last pap wnl USPSTF recommends against screening for cervical cancer in women older than 65yo who have had adequate prior screening & are not otherwise at high risk for cervical cancer. Mammo order given Dexa discussed & wants to do it next year. Last 2017 was wnl. Colonoscop y UTD by PCP Health Concerns Section Related Observation LastModified by Organization Detai ls LastModified Time None Recorded Concern Status LastModified by Organization Details LastModified Time None Recorded Advance Directives Directive None Recorded Payers Encounter Date Sequence Insurance Name Policy Number Policy Velasco Covered Member ID Velasco Member ID Guarantor Name 06/29/2020 1 [facility] - [facility] PRIOR TO 2021 (MEDICAID REPLACEMENT - HMO) Mala Simpson [id number] Notes Date Note Type Note Provider Name and Address Organization Details Recorded Time 06/29/2020 text/html Annual GYNReport ed bypatient.History: no gynecologic complaints Menstrual cycle:Normal menses Urinary symptoms:No hematuria; No incontinence Vulva:No genital lesion Vagina:Normal vaginal discharge Breast:No breast pain; No breast lump; No nipple discharge Current Contraception:Giles gamous relationship Sexual complaints:No sexual complaints; No pain during intercourse; Normal libido Menopausal Symptoms:No menopausal symptoms; Normal vaginal lubrication Psychological symptoms:No depression; No anxiety; No PMDD Preventive measures:Encourage self breast examination; Encourage regular exercise; Encourage no tobacco use; Encourage regular mammograms starting age 40; Needs to schedule mammogram; Up to date on colonoscopy screening; Dexa 2016 Normal Daughter in law present as floriculturist if needed. Joseline Traore, MILENA-BC [address], [place], [address], [facility] 06/29/2020 12:58:49 OBGyn Episode No OBEpisode recorded.
--- OUTSIDE RECORDS SUMMARY | 2024-09-28 14:38 | XMS_ITS | Patient Health Summary ---
Author Organization [facility] Address [address] [place] [address] Care Team Providers Care Aerospace Technician Name Role Phone DonellpeeweeManjit varner Bianca NARAYANAN Primary Care Provider + Note from [facility],non-owned Affiliates and Associated Physician Practices is amultiple site organization consisting of ambulatory clinics and hospital sitesin [place], [place], [place] and [place]. This disclosure is being madepursuant to the Care Everywhere program and may not contain all information available regarding this patient. Last updated 18.[facility] Allergies * Promethazine(GI Discomfort,Unknown) * Tramadol(GI Discomfort,Unknown) Medications * Be aware that medications may not be up to date on this document. Alwaysverify current medications with the patient. * donepezil (Aricept) 10 MG tablet(Started 12/25/2022) Take 1 (one) tablet by mouth once daily * simvastatin (Zocor) 40 MG tablet(Started 12/25/2022) Take 1 (one) tablet by mouth once daily * omeprazole (PriLOSEC) 40 MG capsule(Started 07/09/2023) TK 1 C PO BID * Simethicone (PHAZYME PO) * levothyroxine (Synthroid) 88 MCG tablet(Started 07/30/2023) * vitamin D3 (Cholecalciferol) (10 MCG) 400 UNIT tablet Take 1 (one) tablet by mouth once daily * hyoscyamine (Levsin) 0.125 MG IR tablet(Started 12/15/2023) * methylPREDNISolone acetate (DEPO-Medrol) 80 MG/ML injection(Started 12/09/2023) Inject 1 mL into muscle once * oxyBUTYnin (Ditropan) 5 MG tablet Take 1 (one) tablet by mouth 2 times daily Active Problems Problem Noted Date Diagnosed Date Overactive bladder 07/12/2023 10/11/2023 Chronic pain of left knee 06/06/20202023 Localized osteoarthritis of left knee 06/06/2020 10/11/2023 Primary osteoarthritis of both knees 06/06/2020 10/11/2023 Arthritis of left hand 03/13/2020 Gastroesophageal reflux disease 03/13/2020 10/11/2023 Hyperlipidemia 09/23/2018 10/11/2023 Memory change 09/23/2018 10/11/2023 Other specified hypothyroidism 09/23/2018 0 10/11/2023 Urinary incontinence 09/23/2018 10/11/2023 Plantar fasciitis 10/09/2015 [...] Comments Blood Pressure 145/85 09/26/2024 8:47 AM TELEPHONE REPAIRER Pulse 80 09/26/2024 8:47 AM TELEPHONE REPAIRER Temperature 37.3 ??C (99.2 ??F) 09/26/2024 8:47 AM CS T Respiratory Rate 16 12/18/2016 3:04 PM CDT Oxygen Saturation 98% 09/26/2024 8:47 AM TELEPHONE REPAIRER Inhaled Oxygen Concentration - - Weight 80.3 kg (177 lb) 09/26/2024 8:47 AM TELEPHONE REPAIRER Height 152.4 cm (5') 09/26/2024 8:47 AM TELEPHONE REPAIRER Body Mass Index 34.57 09/26/2024 8:47 AM TELEPHONE REPAIRER Procedures * [place] MSR PVR U&/BLADD CAPCTY US NON(Performed 10/11/2023) Performed for Urgency incontinence * URINALYSIS AUTO - POINT OF CARE (AMB) [facility](Performed 10/11/2023) Performed for Urgency incontinence Results * [place] MSR PVR U&/BLADD CAPCTY US NON (10/11/2023 2:20 PM TELEPHONE REPAIRER) Narrative Jannette Watson MA - 10/11/2023 2:20 PM TELEPHONE REPAIRER Jannette Watson MA ? 10/15/2023 ??8:33 AM Bladder scan complete 0mL Reta Sanches GEOSPATIAL TECHNICIAN-MINERALOGY TEACHER PROCEDURE/MINOR SURGICAL ORDERABLES * URINALYSIS AUTO - POINT OF CARE (AMB) [facility] (10/11/2023 2:09 PM TELEPHONE REPAIRER) Glucose UA - [facility] [address] Bilirubin UA POCT - [facility] [address] Ketones UA POCT - [facility] [address] Specific [place] UA 1.[address] [facility] [address] Blood Urine POCT +- [facility] [address] pH UA 6.0 [facility] [address] Protein UA - [facility] [address] Urobilinogen UA - [facility] [address] Nitrite UA - [facility] [address] WBC UA +- [facility] [address] Urine URINE / Unknown 10/11/2023 2 :09 PM TELEPHONE REPAIRER Reta Sanches GEOSPATIAL TECHNICIAN-MINERALOGY TEACHER LAB - POINT OF CARE ORDERABLES [facility] [address] [place] [address], [facility] [phone] Care Teams Aerospace Technician Relationship Specialty Start Date End Date Manjit Aldridge DO [address] [place] [id number] PCP - General Family Medicine Geriatric Medicine 09/15/24
== END 2024-09-28 13:54 | disposition home or self-care (01) ==
LOC: ANHIMG 13:55
PROVIDERS: PCP Student in an Organized Health Care Education/Training Program; Visit Provider Student in an Organized Health Care Education/Training Program
DX: Z12.31 Encounter for screening mammogram for malignant neoplasm of breast (principal)
CPT/HCPCS: 77063; 77067

== ENCOUNTER 2025-07-05 07:58 | Outpatient (CLI) | payer OTHER, SELFPAY ==
--- NOTE | ~2025-07-05 | NM_ITS ---
EXAM/PROCEDURE: NM fanny stress w perfusion HISTORY: Chst pain COMPARISON: None available. TECHNIQUE: Standard technique for radionuclide stress test performed. Radiotracer: 10.9 mCi technetium 99m Myoview administered during rest age, and 35.2 mCi technetium 99m Myoview administered for stress phase. FINDINGS: No compelling left ventricular radionuclide deficits seen either reversible or fixed. Ejection fraction calculated at 63%. On fundoplication appy, no quantifiable radionuclide disparity between stress and rest sequences appreciated. IMPRESSION: No compelling radionuclide evidence of fixed or reversible left ventricular myocardial defect. Reviewed, dictated and finalized at location A. ING PRIZER IMPRESSION: No compelling radionuclide evidence of fixed or reversible left ventricular patricia cardial defect.
--- NOTE | 2025-07-05 08:02 | EST_ITS ---
Patient Info Name: Mala Simpson Age: 75 years : 1950 Gender: Female Ht: 60 in Wt: 180 lbs BSA: 1.90 m2 HR: 46 bpm BP: 157 / 84 mmHg Exam Date: 07/05/2025 8:02 AM Patient Status: O Admit Date: 07/05/2025 Exam Type: CA stress fanny w NM A regadenoson stress test was performed. Staff Referring Physician: Rome Koch DO Attending Provider: Rome Koch DO Exercise Technologist: Dolly Salcido Exercise Physician: Rome Koch DO Summary 1. 1. Negative lexiscan stress test for ischemic ST changes by ECG criteria. 2. 2. Baseline hypertension. 3. 3. Nuclear scan to follow and will be reported separately. Please correlate with it. 4. 4. Patient informed of the above results. Protocol: Lexiscan Stress ECG Details Stage: REST Duration (min): 2 min : 5 sec HR (bpm): 47 SBP (mmHg): 157 DBP (mmHg): 84 Stage: REST Duration (min): 6 min : 23 sec HR (bpm): 48 SBP (mmHg): 157 DBP (mmHg): 84 Stage: STAGE 1 Duration (min): 0 min : 59 sec HR (bpm): 65 SBP (mmHg): 159 DBP (mmHg): 69 Stage: RECOVERY Duration (min): 1 min : 0 sec HR (bpm): 84 SBP (mmHg): 159 DBP (mmHg): 69 Stage: RECOVERY Duration (min): 2 min : 0 sec HR (bpm): 83 SBP (mmHg): 159 DBP (mmHg): 69 Stage: RECOVERY Duration (min): 3 min : 0 sec HR (bpm): 74 SBP (mmHg): 134 DBP (mmHg): 75 Stage: RECOVERY Duration (min): 4 min : 0 sec HR (bpm): 76 SBP (mmHg): 134 DBP (mmHg): 75 Stage: RECOVERY Duration (min): 5 min : 0 sec HR (bpm): 71 SBP (mmHg): 135 DBP (mmHg): 74 Stage: RECOVERY Duration (min): 5 min : 6 sec HR (bpm): 72 SBP (mmHg): 135 DBP (mmHg): 74 Rest HR: 48 bpm Peak HR: 85 bpm Rest Sys BP: 157 mmHg Peak Sys BP: 159 mmHg Max Pred HR: 144 bpm % Max Pred HR: 59 % Target HR: 122 bpm Max RPP: 13,515 bpm*mmHg Termination Reason: Completed protocol Cardiac Symptoms: Chest pain, Shortness of breath Total Time: 1 min : 0 sec Rest Albarran BP: 84 mmHg Peak Albarran BP: 69 mmHg Total Dose: 0.4 mg Resting ECG Sinus bradycardia, cannot r/o septal infarct, LAFB, T wave inversions in anterolat/inf leads- consider ischemia. Stress ECG No ST changes and T wave inversions normalized. Arrhythmias None. Report Signatures
--- OUTSIDE RECORDS SUMMARY | 2025-07-05 16:50 | XMS_ITS | Encounter Summary ---
Author Organization [facility] Address [address] [place] [address] Care Team Providers Care Drug Regulatory Affairs Specialist Name Role Phone Manjit Aldridge DO Primary Care Provider + Manjit Aldridge DO Primary Care Provider + Manjit Aldridge DO Unavailable [phone] Encounter Details Date Type Department Care Team (Late st Contact Info) Description 09/21/2021 MyChart Message Enc [facility] Orthopedic & Sports Medicine - [place] [address] [place], [place] [id number] Say Gaviria MD [address] [place] [address] Question regarding JOINT ASPIRATION/INJECTION Social [...] Sex Assigned at Female 10/15/2022 9:55 AM MAILER APPRENTICE Legal Sex Female 4:25 PM MAILER APPRENTICE Gender Identity Female 10/15/2022 9:55 AM MAILER APPRENTICE Sexual Orientation Straight 10/15/2022 9: 55 AM MAILER APPRENTICE COVID-19 Exposure Response Date Recorded In the last month, have you been in contact with someone who was confirmed or suspected to have Coronavirus / COVID-19? No / Unsure 09/24/2021 10:12 AM MAILER APPRENTICE documented as of this encounter Plan of Treatment Upcoming Encounters Date Type Department Care Team (Late st Contact Info) Description 07/10/2025 1:00 PM MAILER APPRENTICE Office Visit [facility] Orthopedic & Sports Medicine - [place] [address] [place] [address] Say Gaviria MD [address] [place] [address] documented as of this encounter Visit Diagnoses Not on filedocumented in this encounter Additional Health Concerns Assessment Noted Time PHQ-9 Depression Total Score: 0 09/08/19 22 2:51 PM MAILER APPRENTICE documented as of this encounter Care Teams Drug Regulatory Affairs Specialist Relationship Specialty Start Date End Date Manjit Aldridge DO [address] [place] [id number] PCP - General FAMILY PRACTICE 09/08/18 09/23/21 Manjit Aldridge DO [address] [place] [address] PCP - General FAMILY PRACTICE 09/24/21 Manjit Aldridge DO [address] [place] [address] FAMILY PRACTICE 09/24/21 documented as of this encounter
--- OUTSIDE RECORDS SUMMARY | 2025-07-05 16:51 | XMS_ITS | Encounter Summary ---
Author Organization [facility] Address [address] [place] [address] Care Team Providers Care Master Lay Out Specialist Name Role Phone Manjit Aldridge DO Primary Care Provider + Manjit Aldridge DO Unavailable [phone] Encounter Details Date Type Department Care Team (Late st Contact Info) Description 07/12/2024 MyChart Message Enc [facility] Medical Group Family & Internal Medicine [facility] [address] [place] [address] Manjit Aldridge DO [address] [place] [address] Shoulder pain Social History Tobacco [...] Sex Assigned at Female 10/15/2022 9:55 AM AGRICULTURAL CHEMICALS INSPECTOR Legal Sex Female 4:25 PM AGRICULTURAL CHEMICALS INSPECTOR Gender Identity Female 10/15/2022 9:55 AM AGRICULTURAL CHEMICALS INSPECTOR Sexual Orientation Straight 10/15/2022 9: 55 AM AGRICULTURAL CHEMICALS INSPECTOR documented as of this encounter Progress Notes [...] Dr. Gaviria was December per available records). CULTURAL CHEMICALS INSPECTOR documented in this encounter Plan of Treatment Upcoming Encounters Date Type Department Care Team (Late st Contact Info) Description 07/10/2025 1:00 PM AGRICULTURAL CHEMICALS INSPECTOR Office Visit [facility] Medical Group Orthopedic & Sports Medicine - [place] [address] [place] [address] Say Gaviria MD [address] [place] [address] documented as of this encounter Visit Diagnoses Not on filedocumented in this encounter Additional Health Concerns Assessment Noted Time PHQ-9 Depression Total Score: 0 10/08/19 22 2:41 PM AGRICULTURAL CHEMICALS INSPECTOR documented as of this encounter Care Teams Master Lay Out Specialist Relationship Specialty Start Date End Date Manjit Aldridge DO [address] [place] [address] PCP - General FAMILY PRACTICE 09/24/21 [place] [address] [place] [address] FAMILY PRACTICE 09/24/21 documented as of this encounter
--- OUTSIDE RECORDS SUMMARY | 2025-07-05 16:51 | XMS_ITS | Encounter Summary ---
Author Organization [facility] Address [address] [place] [address] Care Team Providers Care Galley Boy Name Role Phone Manjit Aldridge DO Primary Care Provider + Manjit Aldridge DO Unavailable [phone] Encounter Details Date Type Department Care Team (Late st Contact Info) Description 01/29/2022 eYeka Message Enc [facility] Medical [facility] Family & Internal Medicine [address] [address] [facility] Provider Lab results Social History Tobacco Use [...] Sex Assigned at Female 10/15/2022 9:55 AM IMMERSION METALCLEANER Legal Sex Female 4:25 PM IMMERSION METALCLEANER Gender Identity Female 10/15/2022 9:55 AM IMMERSION METALCLEANER Sexual Orientation Straight 10/15/2022 9: 55 AM IMMERSION METALCLEANER COVID-19 Exposure Response Date Recorded In the last 10 days, have yo u been in contact with someone who was confirmed or suspected to have Coronavirus/COVID-19? No / Unsure 01/29/2022 10:30 AM CDT documented as of this encounter Plan of Treatment Upcoming Encounters Date Type Department Care Team (Late st Contact Info) Description 07/10/2025 1:00 PM IMMERSION METALCLEANER Office Visit [facility] Medical Group Orthopedic & Sports Medicine - [place] [address] [place] [address] Say Gaviria MD [address] [place] [address] documented as of this encounter Visit Diagnoses Not on filedocumented in this encounter Additional Health Concerns Assessment Noted Time PHQ-9 Depression Total Score: 0 10/08/19 22 2:41 PM IMMERSION METALCLEANER documented as of this encounter Care Teams Galley Boy Relationship Specialty Start Date End Date Manjit Aldridge DO [address] [place] [phone] PCP - General FAMILY PRACTICE 09/24/21 Manjit Aldridge DO [address] [place] [address] FAMILY PRACTICE 09/24/21 documented as of this encounter
--- OUTSIDE RECORDS SUMMARY | 2025-07-05 16:51 | XMS_ITS | Encounter Summary ---
Author Organization [facility] Address [address] [place] [address] Care Team Providers Care Clean Rice Grader And Reel Tender Name Role Phone Manjit Aldridge DO Primary Care Provider + Manjit Aldridge DO Unavailable [phone] Encounter Details Date Type Department Care Team (Late st Contact Info) Description 07/09/2023 MyChart Message Enc [facility] Medical [facility] Family & Internal Medicine [facility] [address] [place] [address] Manjit Aldridge DO [address] [place] [address] Blood work Social History Tobacco [...] Sex Assigned at Female 10/15/2022 9:55 AM GENETICS TEACHER Legal Sex Female 4:25 PM GENETICS TEACHER Gender Identity Female 10/15/2022 9:55 AM GENETICS TEACHER Sexual Orientation Straight 10/15/2022 9: 55 AM GENETICS TEACHER documented as of this encounter Progress Notes * Manjit Aldridge DO - 07/20/2023 12:57 PM CST If it's been 3 months since a systemic injection of methylprednisolone 80 mg, we could do that in anursing visit. If it's into a joint specifically, we do not have any openings this week. TICS TEACHER * Manjit Aldridge DO - 07/11/2023 1:41 PM CST Recommend schedule follow-up and obtain labs prior to visit; recommend CBC, CMP, TSH, A1c, Vitamin D, and Lipid Panel. TICS TEACHER documented in this encounter Plan of Treatment Upcoming Encounters Date Type Department Care Team (Late st Contact Info) Description 07/10/2025 1:00 PM GENETICS TEACHER Office Visit [facility] Medical Group Orthopedic & Sports Medicine - [place] [address] [place] [address] Say Gaviria MD [address] [place] [address] documented as of this encounter Visit Diagnoses Not on filedocumented in this encounter Additional Health Concerns Assessment Noted Time PHQ-9 Depression Total Score: 0 10/08/19 2:41 PM GENETICS TEACHER documented as of this encounter Care Teams Clean Rice Grader And Reel Tender Relationship Specialty Start Date End Date Manjit Aldridge DO [address] [place] [phone] PCP - General FAMILY PRACTICE 09/24/21 Manjit Aldridge DO [facility] [place] [address] FAMILY PRACTICE 09/24/21 documented as of this encounter
--- OUTSIDE RECORDS SUMMARY | 2025-07-05 16:51 | XMS_ITS | Data Portability ---
Author Organization [facility] [place] Address [address] [place] [address] Care Team Providers Care Rn Maternity Name Role Phone SORAYA GOLDEN Urologist Assessment [...] urinalysis , dipstick 2019 020 cfriederi ch1 [place], [address], [place], [address], 0 11:03:42 Referral None recorded. Procedures None recorded. Surgeries None recorded. Imaging None recorded. Medication Orders None recorded. Patient TargetsNo targets recorded. Patient InstructionsNo instructions recorded. Reason for Referral None Reported. Results Created Date Observation Date Name Description Value Unit Range Abnormal Flag Note LastModifiedBy Organization Detail LastModifiedTime 06/29/2006/29/2020 urina lysis , dipst ick Leukocytes neg Not Available Pedro anderson [address], [place], [address], 06/29/2020 12:18:36 06/29/2006/29/2020 urina lysis , dipst ick Blood ++ Not Available [place] [address], [place], [address], 06/29/2020 12:18:36 06/29/20 20 06/29/2020 urina lysis , dipst ick Leukocytes neg Not Available Ved[facility] anderson [address], [place], [address], 06/29/2020 12:17:55 06/29/20 20 06/29/2020 urina lysis , dipst ick Blood ++ Not Available [place] [address], [place], [address], 06/29/2020 12:17:55 07/01/20 20 07/02/2020 urina lysis compl ete, refle x cultu re urine type Voided Not Available [facility] [address] [place] [address] [address], [place], [address], 07/02/2020 12:56:20 07/01/20 20 07/02/2020 urina lysis compl ete, refle x cultu re urine color DK YELLOW yellow Not Available [facility] [address] [place] [address] [address], [place], [address], 07/02/2020 12:56:20 07/01/20 20 07/02/2020 urina lysis compl ete, refle x cultu re urine appearance CLOUDY clear abnormal Not Available [facility] [address] [place] [address] [address], [place], [address], 07/02/2020 12:56:20 07/01/20 20 07/02/2020 urina lysis compl ete, refle x cultu re urine specific gravity 1.023 1.005- 1.030 Not Available [facility] [address] [place] [address] [address], [place], [address], 07/02/2020 12:56:20 07/01/20 20 07/02/2020 urina lysis compl ete, refle x cultu re urine pH 7.0 5.0-9. 0 Not Available [facility] [address] [place] [address] [address], [place], [address], 07/02/2020 12:56:20 07/01/20 20 07/02/2020 urina lysis compl ete, refle x cultu re urine leukocytes esterase NEGATI VE negati ve Not Available [facility]) [address] [place] [address] [address], [place], [address], 07/02/2020 12:56:20 07/01/20 20 07/02/2020 urina lysis compl ete, refle x cultu re urine nitrites NEGATI VE negati ve Not Available [facility] [address] [place] [address] [address], [place], [address], 07/02/2020 12:56:20 07/01/20 20 07/02/2020 urina lysis compl ete, refle x cultu re urine protein TRACE negati ve abnormal Not Available [facility] [address] [place] [address] [address], [place], [address], 07/02/2020 12:56:20 07/01/20 20 07/02/2020 urina lysis compl ete, refle x cultu re urine glucose NEGATI VE negati ve Not Available [facility] [address] [place] [address] [address], [place], [address], 07/02/2020 12:56:20 07/01/20 20 07/02/2020 urina lysis compl ete, refle x cultu re urine ketones NEGATI VE negati ve Not Available [facility] [address] [place] [address] [address], [place], [address], 07/02/2020 12:56:20 07/01/20 20 07/02/2020 urina lysis compl ete, refle x cultu re urine urobilinogen 0.2 E.U./ dL 0.2-1. 0 Not Available [facility] [address] [place] [address] [address], [place], [address], 07/02/2020 12:56:20 07/01/20 20 07/02/2020 urina lysis compl ete, refle x cultu re urine bilirubin NEGATI VE negati ve Not Available [facility] [address] [place] [address] [address], [place], [address], 07/02/2020 12:56:20 07/01/20 20 07/02/2020 urina lysis compl ete, refle x cultu re urine blood NEGATI VE negati ve Not Available [facility] [address] [place] [address] [address], [place], [address], 07/02/2020 12:56:20 07/01/20 20 07/02/2020 urina lysis , micro scopi c urine WBC 0-2 /hpf 0-2 Not Available [facility] [address] [place] [address] [address], [place], [address], 07/02/2020 12:56:20 07/01/20 20 07/02/2020 urina lysis , micro scopi c urine RBC 6-10 /hpf 0-2 abnormal Not Available [facility]) [address] [place] [address] [address], [place], [address], 07/02/2020 12:56:20 07/01/20 20 07/02/2020 urina lysis , micro scopi c urine epithelial cells 0-2 /hpf 0-2 Not Available [facility]) [address] [place] [address] [address], [place], [address], 07/02/2020 12:56:20 07/01/20 20 07/02/2020 urina lysis , micro scopi c urine bacteria NONE SEEN /hpf none seen Not Available [facility] [address], [place], [address], 07/02/2020 12:56:20 07/01/20 20 07/02/2020 urina lysis , micro scopi c urine casts 2-5 Hyalin e /lpf 0-2 hyalin e abnormal Not Available [facility] [address], [place], [address], 07/02/2020 12:56:20 Result Notes None recorded. Problems Name Problem SNOMED Code Status Onset Date Resolution Date Notes Provider Name and Address Organization Details Recorded Time Screening for malignant neoplasm of rectum Active 2015 Encounter for screening for malignant neoplasm of rectum;Pra ctice ID: [id number] Not Available [facility] 0 21:[facility]:[address] Concept Active 2015 Encntr for general adult medical exam w/o abnormal findings;R ecorded Elsewhere: No Locatio n: [facility] rce: EHR Chroni c: N Practice ID: 0001 Billa ble Time: 02:45:00 PM Not Available [facility] 0 21:23:56 Evaluation finding Active 2016 Hematuria, unspecifie d;Practice ID: 0001 Not Available [facility] 0 21:23:[address] Concept Active 2016 Encntr for engine setter exam (general) (routine) w/o abn findings;P ractice ID: 0001 Not Available [facility] 0 21:23:[address] Concept Active 2017 Encounter for general adult medical exam w abnormal findings;P ractice ID: 0001 Not Available [facility] 0 21:23:56 Screening for malignant neoplasm of cervix Active 2017 Screening for malignant neoplasms of the cervix;Rec orded Elsewhere: No Locatio n: [facility] rce: EHR Chroni c: N Practice ID: 0001 Billa ble Time: 03:30:00 PM Not Available [facility] 0 21:23:56 Acute vaginitis 65243209 Active 2018 Acute vaginitis; Practice ID: 0001 Not Available [facility] 0 21:23:56 Problem Notes None recorded. Medical [...] Prescrib ed Elsewher e: No Locat ion: [facility] M odify By: cristian andrews DateTime : [...] ed Elsewher e: No Locat ion: [facility] M odify By: pita Walter ncounter DateTime : 10/26/19 18 03:30:00 PM Not Available Not Available Not Available simvastat in active Not Available Not Available Not Available donepezil active Not Available Not Isabella ilable Not Available Fluad Quad (65yr up)(PF) 60 mcg (15 mcg x 4)/0.5mL IM syringe 06/29 completed Not Available Not Available Not Available Vitals Date Recorded Body height Body mass index (BMI) Body weight Systolic And Diastolic Provider Name and Address Organization Details Last Updated DateTime 06/29/2020 144.78 cm 37.9 kg/m2 28278.66 g 166/93 mm[Hg] Nohelia [facility] 06/29/2020 11:38:14 Social History None recorded. Functional Status None recorded. Mental Status None recorded. Family History Nothing Reported. Medical History No medical history recorded. Gynecological HistoryNo gynecological history recorded. Obstetrics History GPAL:G 0 P 0 0 0 0 Past Encounters Encounter ID Performer Location Encounter Start Date Encounter Closed Date Diagnosis/Indication Diagnosis SNOMED-CT Code Diagnosis ICD10 Code Diagnosis IMO Codes Diagnosis Note [id number] [facility] [address] [address] 06/29/2020 11:10:48 07/01/2020 17:20:54 Urinary tract infectious disease 51601468 N39.0 Urine sent for complaints of urgency & dysuria started 2 days ago. Gynecologi c examination 77124828 Z01.419 Take Calcium with Vitamin D 12-1500mg daily. Do monthly self breast exams. It is advised to get annual flu shot in the fall and she could obtain at [facility] or [facility] care clinic. If you haven't received [...] Recorded Advance Directives Directive None Recorded Payers Insurance Date Sequence Insurance Name Policy Number Policy Velasco Covered Member ID Velasco Member ID Guarantor Name 07/01/2020 1 [facility] - DOS PRIOR TO 2021 (MEDICAID REPLACEMENT - HMO) Mala Simpson [id number] Notes Date Note Type Note Provider Name and Address Organization Details Recorded Time 0 text/html Annual GYNReported by PatientHistoryFor history, patient reportsno gynecologic complaints.Genitourina ry symptomsFor menstrual cycle, patient reportsnormal menses. For urinary symptoms, patient reportsno hematuriaandno incontinence. For vulva, patient reportsno genital lesion. For vagina, patient reportsnormal vaginal discharge.Breast symptomsFor breast, patient reportsno breast pain,no breast lump, andno nipple discharge.Endocrine symptomsFor sexual complaints, patient reportsno sexual complaints,no pain during intercourse, andnormal libido. For menopausal symptoms, patient reportsno menopausal symptomsandnormal vaginal lubrication.Psychologi merced symptomsFor psychological symptoms, patient reportsno depression,no anxiety, andno pmdd.Preventative measuresFor preventive measures, patient reportsencourage self breast examination,encourage regular exercise,encourage no tobacco use,encourage regular mammograms starting age 40,needs to schedule mammogram, andup to date on colonoscopy screening(dexa 2017 normal). Daughter in law present as interpreter and translator if needed. Joseline Traore, [facility]- [address], [place], [address], [facility] 06/29/2020 12:58:49 OBGyn Episode No OBEpisode recorded.
--- OUTSIDE RECORDS SUMMARY | 2025-07-05 16:51 | XMS_ITS | Encounter Summary ---
Author Organization [facility] Address [address] [place] [address] Care Team Providers Care Hydraulic Rockbreaker Operator Name Role Phone Manjit Aldridge DO Primary Care Provider + Manjit Aldridge DO Unavailable [phone] Encounter Details Date Type Department Care Team (Late st Contact Info) Description 10/29/2023 MyCJibot Message Enc [facility] - [place] [address] [place], [place] [id number] [phone] Say Gaviria MD [address] [place] [address] Knees folllow up Social History Tobacco Use [...] Sex Assigned at Female 10/15/2022 9:55 AM PROJECT COACH Legal Sex Female 4:25 PM PROJECT COACH Gender Identity Female 10/15/2022 9:55 AM PROJECT COACH Sexual Orientation Straight 10/15/2022 9: 55 AM PROJECT COACH documented as of this encounter Plan of Treatment Upcoming Encounters Date Type Department Care Team (Late st Contact Info) Description 07/10/2025 1:00 PM PROJECT COACH Office Visit [facility] - [place] [address] [place] [address] Say Gaviria MD [address] [place] [address] documented as of this encounter Visit Diagnoses Not on filedocumented in this encounter Additional Health Concerns Assessment Noted Time PHQ-9 Depression Total Score: 0 10/08/19 22 2:41 PM PROJECT COACH documented as of this encounter Care Teams Hydraulic Rockbreaker Operator Relationship Specialty Start Date End Date Manjit Aldridge DO [address] [place] [address] PCP - General FAMILY PRACTICE 09/24/21 Manjit Aldridge DO [address] [place] [address] FAMILY PRACTICE 09/24/21 documented as of this encounter
--- OUTSIDE RECORDS SUMMARY | 2025-07-05 16:51 | XMS_ITS | Encounter Summary ---
Author Organization [facility] Address [address] [facility] [place] [address] Care Team Providers Care Steam Fitter Helper Name Role Phone Manjit Aldridge Primary Care Provider + Encounter Details Date Type Department Care Team (Late st Contact Info) Description 10/11/2024 Lab Requisition [facility] [address] [facility] [place] [address] Hipolito Davis DO [address] [place] [address] Social History Tobacco Use Types Packs/Day Years Used Date Smoking Tobacco: Never Smokeless Tobacco: Never Alcohol Use Standard Drinks/Week Comments Never 0 (1 standard drink = 0.6 oz pur e alcohol) Comments Unknown Sex and Gender Information Value Date Recorded Sex Assigned at Not on file Legal Sex Female 5:40 PM INTERNAL MEDICINE HOSPITALIST Gender Identity Not on file Sexual Orientation Not on file documented as of this encounter Plan of Treatment Not on file documented as of this encounter Procedures Procedure Name Priority Date/Time Associated Diagnosis Comments DERMATOPATHOLOGY Routine 10/10/2024 12:0 0 AM INTERNAL MEDICINE HOSPITALIST documented in this encounter Results * DERMATOPATHOLOGY (10/10/2024 12:00 AM INTERNAL MEDICINE HOSPITALIST) Case Report Dermatopathology Report Case: [id number] Authorizing Provider: Hipolito Davis DO Collected: 10/10/2024 12:00 AM Ordering Location: [facility] - Received: 10/11/2024 03:53 PM DermPath Lab Pathologist: Janelle Franz MD Specimen: Skin, right lower arm 4:09 PM [facility] Final Diagnosis Specimen A. 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 4:09 PM [facility] Gross Description Specimen A: Received is one formalin filled container labeled with the patient's name and designated right lower arm. The specimen consists of a [id number] mm piece of skin. The specimen is serially sectioned and a member services representative section is submitted in cassette 1. Jar 0. 4:09 PM [facility] Microscopic Description Specimen A. SKIN, right lower arm: Sections show a circumscribed multi-nodular proliferation of spindled cells, and both cellular and myxoid areas are apparent. There are scattered ectatic vascular channels, and there are scattered nucleomegalic spindled cells. The hematoxylin and eosin stain is reviewed; immunohistochemical stains are performed to further characterize this process. The spindle cells are positive for S100. The Ki67 proliferation index is low. COMMENT: This case has been reviewed by Dr. Lola Franz who concurs with the diagnosis. 4:09 PM [facility] Disclaimer An external and internal positive and negative controls are appropriate for the histochemical, immunohistochemical and immunofluorescence stain(s) in this case (if any), except where stated explicitly. The performance characteristics of the stain(s) cited in this report were developed and its performance characteristic determined by the Dermatopathology Laboratory at [facility], directed by Dr. Pool Rankin. These tests need not be, and therefore are not, approved by the [place] Food and Drug Administration. The tests are used for clinical purposes. Billing Codes Specimen Charges Stain Charges 15383 1 [id number] 88358 1 1 4:09 PM [facility] Embedded Images 4:09 PM [facility] Pathology/Cytolog y TISSUE SPECIMEN FROM SKIN / Unknown 10/10/2024 10/11/2024 3:53 PM INTERNAL MEDICINE HOSPITALIST Hipolito Davis DO LAB - PATHOLOGY/CYTOLOGY ORDERAB LES Final Result DERMATOPATHOLOGY LABORATORY [facility] - Department of Dermatology [facility] Specialized Medicine [address] [place] [address], [address] [phone] documented in this encounter Visit Diagnoses Not on filedocumented in this encounter Care Teams Steam Fitter Helper Relationship Specialty Start Date End Date Manjit Aldridge DO [address] [place] [address] PCP - General Family Medicine Geriatric Medicine 09/15/24 documented as of this encounter
--- OUTSIDE RECORDS SUMMARY | 2025-07-05 16:51 | XMS_ITS | Encounter Summary ---
Author Organization [facility] Address [address] [place] [address] Care Team Providers Care Rack Puncher Name Role Phone Manjit Aldridge DO Primary Care Provider + Manjit Aldridge DO Unavailable [phone] Encounter Details Date Type Department Care Team (Late st Contact Info) Description 10/26/2022 MyCAlexis Bittart Message Enc [facility] - [place] [address] [place], [place] [id number] [phone] Say Gaviria MD [address] [place] [address] Knees injection Social History Tobacco Use Types [...] Sex Assigned at Female 10/15/2022 9:55 AM SEO ENGINEER Legal Sex Female 4:25 PM SEO ENGINEER Gender Identity Female 10/15/2022 9:55 AM SEO ENGINEER Sexual Orientation Straight 10/15/2022 9: 55 AM SEO ENGINEER COVID-19 Exposure Response Date Recorded In the last 10 days, have yo u been in contact with someone who was confirmed or suspected to have Coronavirus/COVID-19? No / Unsure 10/15/2022 9:46 AM SEO ENGINEER documented as of this encounter Plan of Treatment Upcoming Encounters Date Type Department Care Team (Late st Contact Info) Description 07/10/2025 1:00 PM SEO ENGINEER Office Visit [facility] - [place] [address] [place] [address] Say Gaviria MD [address] [place] [address] documented as of this encounter Visit Diagnoses Not on filedocumented in this encounter Additional Health Concerns Assessment Noted Time PHQ-9 Depression Total Score: 0 10/08/19 22 2:41 PM SEO ENGINEER documented as of this encounter Care Teams Rack Puncher Relationship Specialty Start Date End Date Manjit Aldridge DO [address] [place] [address] PCP - General FAMILY PRACTICE 09/24/21 Manjit Aldridge DO [address] [place] [address] FAMILY PRACTICE 09/24/21 documented as of this encounter
--- OUTSIDE RECORDS SUMMARY | 2025-07-05 16:51 | XMS_ITS | Clinical Summary ---
Author Organization [facility] Address [address] [place] [address] Care Team Providers Care Civilian Jail Officer Name Role Phone Mati North DO Primary Care Provider + Mati North DO Unavailable [phone] Allergies Active Allergy Reactions Criticality Noted Date Comments Promethazine GI Upset 06/11/2020 Promethazine Unknown 09/24/2021 Tramadol GI Upset 06/11/2020 Tramadol Unknown 09/24/2021 Medications magnesium oxide (MAG-OX) 250 MG tablet Take 1 tablet (250 mg total) by mouth daily. Active vitamin D3, cholecalciferol, 10 mcg tablet Take 1 tablet (400 Units total) by mouth daily. Active levothyroxine (SYNTHROID) 88 MCG tabletIndications: Other specified hypothyroidism TAKE 1 TABLET (88 MCG TOTAL) BY MOUTH EVERY MORNING. 30 tablet 06/12/20 24 Active oxybutynin (DITROPAN) 5 MG tabletIndications: Urinary incontinence, unspecified type TAKE ONE TABLET BY MOUTH TWICE A DAY DIRECTED 60 tablet 06/12/20 24 Active donepezil (ARICEPT) 10 MG TabIndications:Mem ory change TAKE 1 TABLET (10 MG TOTAL) BY MOUTH NIGHTLY AT BEDTIME. 30 tablet 06/12/20 24 Active omeprazole (PRILOSEC) 40 MG capsuleIndications :Epigastric abdominal pain,Gastroesophag eal reflux disease, unspecified whether esophagitis present TAKE 1 CAPSULE (40 MG TOTAL) BY MOUTH TWO (2) (TWO) TIMES DAILY. 60 capsule 06/12/20 Active hyoscyamine (LEVSIN) 0.125 MG tabletIndications: Abdominal spasms TAKE ONE OR TWO TABLETS (0.125-0.25 MG TOTAL) BY MOUTH EVERY 6 (SIX) HOURS NEEDED FOR CRAMPING. 120 tablet 11/21/19 Active Additional Information Patient not taking.Reported on 07/03/2025 simvastatin (ZOCOR) 40 MG tabletIndications: Hyperlipidemia, unspecified hyperlipidemia type TAKE ONE TABLET BY MOUTH EVERY NIGHT AT BEDTIME 90 tablet 1 02/07/20 Active Hospital, Clinic, or Other Facility Administered Medication Ordered Dose Route Frequency Start Date End Date Status ketorolac (TORADOL) injection 30 mgIndications:Chronic pain of both shoulders 30 mg IV Once 06/19/2025 06/19/2025 Ended hyaluronate sodium (EUFLEXXA) injection 20 mgIndications:Localized osteoarthritis of left knee 20 mg IX Once 06/26/2025 06/26/20 Ended hyaluronate sodium (EUFLEXXA) injection 20 mgIndications:Localized osteoarthritis of right knee 20 mg IX Once 06/26/2025 06/26/2025 Ended lidocaine (XYLOCAINE) 2 % injection 3 mLIndications:Localized osteoarthritis of right knee,Localized osteoarthritis of left knee 3 mL Other Once 06/26/2025 06/26/20 Ended hyaluronate sodium (EUFLEXXA) injection 20 mgIndications:Localized osteoarthritis of right knee 20 mg IX Once 07/03/2025 07/03/2025 Ended hyaluronate sodium (EUFLEXXA) injection 20 mgIndications:Localized osteoarthritis of left knee 20 mg IX Once 07/03/2025 07/03/20 Ended lidocaine (XYLOCAINE) 2 % injection 3 mLIndications:Localized osteoarthritis of right knee,Localized osteoarthritis of left knee 3 mL IX Once 07/03/2025 07/03/20 Ended methylPREDNISolone acetate (DEPO-Medrol) injection 80 mgIndications:Chronic upper back pain,Chronic pain of both shoulders 80 mg IM Once 07/03/2025 07/03/2025 Ended Active Problems Problem Noted Date Diagnosed [...] Encounters Date Type Department Care Team Description 07/04/2025 Results Follow-Up [facility] Family & Internal Medicine [address] [address] Mati North P, DO CBC W/DIFF AUTOMATED, COMPREHENSIVE METABOLIC PANEL, HEMOGLOBIN, GLYCOSYLATED, Additional followed-up results: 4 07/03/2025 1:00 PM ORNAMENTAL RAIL INSTALLER Office Visit [facility] Orthopedic & Sports Medicine [facility] [address] [place] [address] Say Gaviria MD Knee Pain (Bilat knee pain ) 07/03/2025 Travel 06/27/2025 Telephone [facility] Family & Internal [address] [address] Mati North, Lab Order 06/26/2025 1:00 PM CDT Office Visit [facility] Orthopedic [facility] [address] [place] [address] Say Gaviria MD Knee Pain (Bilateral knee pain ); Shoulder Pain (Bilateral shoulder ) 06/26/2025 Travel 06/26/2025 Telephone [facility] [address] [place] [address] Say Gaviria MD Information 06/19/2025 9:40 AM CDT Allied Health/Nurse Visit [facility] Internal [address] [phone] Mati North DO Allied Health Visit (Flu vaccine) 06/19/2025 Telephone [facility] Family & Internal [address] [address] Mati North DO Joint Pain 06/19/2025 Travel 06/08/2025 Scan Kids Note INFO SRVCS Scanned, Doc Med Group from Last 3 Months Immunizations Immunization Administration Dates Next Due FLUAD (IIV, Trivalent, 0.5 M L Pre-filled Syringe) 07/07/2024 Fluzone High Dose (IIV, triv alent, 0.5mL) 06/19/2025 Fluzone High Dose - >Age 65 (Prefilled [...] Date Recorded Patient Health Questionnaire-2 Score 0 10/10/2024 Comments No Sex and Gender Information Value Date Recorded Sex Assigned at Female 10/15/2022 9:55 AM ORNAMENTAL RAIL INSTALLER Legal Sex Female 4:25 PM ORNAMENTAL RAIL INSTALLER Gender Identity Female 10/15/2022 9:55 AM ORNAMENTAL RAIL INSTALLER Sexual Orientation Straight 10/15/2022 9: 55 AM ORNAMENTAL RAIL INSTALLER Last Filed Vital Signs Vital Sign Reading Time Taken Comments Blood Pressure 134/77 07/03/2025 1:02 PM ORNAMENTAL RAIL INSTALLER Pulse 68 07/03/2025 1:02 PM ORNAMENTAL RAIL INSTALLER Temperature 36.8 C (98.3 F) 11/02/2024 8:06 AM ORNAMENTAL RAIL INSTALLER Respiratory Rate 16 11/02/2024 8:06 AM ORNAMENTAL RAIL INSTALLER Oxygen Saturation 98% 11/02/2024 8:06 AM ORNAMENTAL RAIL INSTALLER Inhaled Oxygen Concentration - - Weight 82.1 kg (181 lb) 07/03/2025 1:02 PM ORNAMENTAL RAIL INSTALLER Height 165.1 cm (5' 5) 12/27/2024 8:04 AM CDT Body Mass Index 30.12 12/27/2024 8:04 AM CDT Plan of Treatment Upcoming Encounters Date Type Department Care Team (Late st Contact Info) Description 07/10/2025 1:00 PM ORNAMENTAL RAIL INSTALLER Office Visit [facility] Orthopedic & Sports Medicine - [place] [address] [place] [address] Say Gaviria MD [address] [place] [address] Health Maintenance Due Date Last Done Comments Kidney Health Evaluation 1950 Diabetes: Retinopathy Eye Exam 1968 DTaP, Tdap and Td Vaccines (1 - Tdap) 01/12/1969 RSV Immunization or 60+ Years (1 - 1-dose 75+ series) 01/12/2024 COVID-19 Vaccine ( season) 2025 07/07/2024, 06/22/2022, 09/20/2021, Additional history exists Hemoglobin A1C 12/27/2025 06/28/2025, 040 04/2025, 09/07/2024, Additional history exists Lipid Panel 06/28/2026 06/28/2025, 07/02, 07/01/2022, Additional history exists Pneumococcal Vaccine: 50+ Years Completed 06/22/2022 Hepatitis C Completed 07/01/2022 Dexa Scan (General) Completed 08/13/2023, Zoster Vaccines Completed 09/30/2023, 09/09/2022 PHQ-2 (Physician [place]) Completed 10/10/2024 Influenza Adult Completed 06/19/2025, 1103/2024, 06/16/2023, Additional history exists Hepatitis A Vaccines Aged Out No long er eligible based on patient's age to complete this topic Meningococcal B Vaccine Aged Out No l onger eligible based on patient's age to complete this topic Meningococcal Vaccine Aged Out No forrest carmen eligible based on patient's age to complete this topic RSV Immunizations Under 20 Months Aged Out No longer eligible based on patient's age to complete this topic Medical Devices Implanted Type Area It Disaster Recovery Manager Device Identifier Shelf Expiration Date Model / Serial / Lot Stent Ureteral [place] Sci Contour 6fr X 24cm - [id number] Implanted:Qty : 1 on 09/30/2021 by Greg Pabon MD at [facility] Stent Right: Ureter [place] [employer] [id number] 06/23/2024 [id number] Description:String removed Procedures Procedure Name Priority Date/Time Associated Diagnosis Comments OUS GUIDE NEEDLE PLCMT ORTHO Routine 07/03/2025 1:00 PM ORNAMENTAL RAIL INSTALLER Localized osteoarthritis of right knee Localized osteoarthritis of left knee ARTHROCENTESIS MAJOR JOINT W/ ULTRASOUND GUIDANCE Routine 07/03/2025 1:00 PM ORNAMENTAL RAIL INSTALLER Localized osteoarthritis of right knee Localized osteoarthritis of left knee VITAMIN D, 25 OH Routine 06/28/2025 10:3 0 AM CDT Hyperlipidemia, unspecified hyperlipidemia type Osteopenia of multiple sites Prediabetes Hypothyroidism, unspecified type URIC ACID BLOOD Routine 06/28/2025 10:30 AM CDT Hyperlipidemia, unspecified hyperlipidemia type Osteopenia of multiple sites Prediabetes Hypothyroidism, unspecified type TSH W/REFLEX Routine 06/28/2025 10:30 AM CDT Hyperlipidemia, unspecified hyperlipidemia type Osteopenia of multiple sites Prediabetes Hypothyroidism, unspecified type LIPID PANEL Routine 06/28/2025 10:30 AM CDT Hyperlipidemia, unspecified hyperlipidemia type Osteopenia of multiple sites Prediabetes Hypothyroidism, unspecified type HEMOGLOBIN, GLYCOSYLATED Routine 06/28/2025 10:30 AM CDT Hyperlipidemia, unspecified hyperlipidemia type Osteopenia of multiple sites Prediabetes Hypothyroidism, unspecified type COMPREHENSIVE METABOLIC PANEL Routine 06/28/2025 10:30 AM CDT Hyperlipidemia, unspecified hyperlipidemia type Osteopenia of multiple sites Prediabetes Hypothyroidism, unspecified type CBC W/DIFF AUTOMATED Routine 06/28/2025 10:30 AM CDT Hyperlipidemia, unspecified hyperlipidemia type Osteopenia of multiple sites Prediabetes Hypothyroidism, unspecified type OUS GUIDE NEEDLE PLCMT ORTHO Routine 06/26/2025 1:18 PM CDT Localized osteoarthritis of right knee Localized osteoarthritis of left knee ARTHROCENTESIS MAJOR JOINT W/ ULTRASOUND GUIDANCE Routine 06/26/2025 1:00 PM CDT Localized osteoarthritis of right knee Localized osteoarthritis of left knee BONE DENSITY/DEXA Routine 08/13/2023 2:0 1 PM ORNAMENTAL RAIL INSTALLER Osteopenia of multiple sites Postmenopausal HEPATITIS C ANTIBODY 07/01/2022 11:48 AM CDT from Last 3 Months or Most Recently Relevant to Health Maintenance Results * OUS GUIDE NEEDLE PLCMT ORTHO (07/03/2025 1:00 PM ORNAMENTAL RAIL INSTALLER) Only the most recent of2 resultswithin the time period is included. Anatomical Region Laterality Modality Ultrasound 07/03/2025 12:5 9 PM ORNAMENTAL RAIL INSTALLER Narrative 07/03/2025 12:59 PM ORNAMENTAL RAIL INSTALLER This report does not contain a radiologist's interpretation. Please review associated procedure and/or operative report. Procedure Note Rhiannon Ruth MD - 07/03/2025 This report does not contain a radiologist's interpretation. Please review associated procedure and/or operative report. Say Gaviria MD ULTRASOUND Final Result * ARTHROCENTESIS MAJOR JOINT W/ ULTRASOUND GUIDANCE (07/03/2025 1:00 PM ORNAMENTAL RAIL INSTALLER) Narrative Say Gaviria MD - 07/03/2025 1:00 PM ORNAMENTAL RAIL INSTALLER Say Gaviria MD 07/03/2025 1:58 PM *Lg Jt Arthrocentesis: bilateral knee Euflexxa injection on 07/03/2025 1:00 PM Indications: pain Details: 22 G needle, ultrasound-guided lateral approach Medications (Right): (2 mL Euflexxa injected knee after local anesthesia with 3 cc 2% lidocaine) Medications (Left): (2 mL Euflexxa injected knee after local anesthesia with 3 cc 2% lidocaine) Outcome: tolerated well, no immediate complications Procedure, treatment alternatives, risks and benefits explained, specific risks discussed. Consent was given by the patient. Patient was prepped and draped in the usual sterile fashion. us Say Gaviria MD PROCEDURE/MINOR SURGICAL ORDERA BLES Final Result * TSH W/REFLEX (06/28/2025 10:30 AM CDT) TSH 2.500 0.450 - 4.50 uIU/mL [facility] 1 06/28/2025 10:3 0 AM CDT 06/28/2025 Narrative [facility] - 06/29/2025 8:11 AM CDT Performed at: [address] [id number] Family Practitioner: Patricio Crawford PhD, Phone: [phone] Mati North DO LABORATORY Final Re sult Performing Organization Address [facility] [place] [address] [facility] * (ABNORMAL) HEMOGLOBIN, GLYCOSYLATED (06/28/2025 10:30 AM CDT) HGB A1C 6.3(H) 4.8 - 5.6 % [facility] 1 Comment: Prediabetes: 5.7 - 6.4 Diabetes: >6.4 Glycemic control for adults with diabetes: <7.0 06/28/2025 10:3 0 AM CDT 06/28/2025 Narrative [facility] - 06/29/2025 8:11 AM CDT Performed at: [address] [id number] Family Practitioner: Patricio Crawford PhD, Phone: [phone] us Mati North DO LABORATORY Final Re sult Performing Organization Address [facility] [place] [address] [facility] * (ABNORMAL) COMPREHENSIVE METABOLIC PANEL (06/28/2025 10:30 AM CDT) GLUCOSE 94 70 - 99 mg/dL [facility] 1 BUN 18 8 - 27 mg/dL [facility] 1 CREATININE S/P/B 0.61 0.57 - 1.00 mg/dL [facility] 1 GFR ESTIMATE 93 >59 mL/min/1.7 3 [facility] 1 BUN CREATININE RATIO 30(H) 12 - 28 [facility] 1 SODIUM S/P/B 142 134 - 144 mmol/L [facility] 1 POTASSIUM S/P/B 4.6 3.5 - 5.2 mmol/L [facility] 1 CHLORIDE S/P/B 103 96 - 106 mmol/L [facility] 1 CO2 23 20 - 29 mmol/L [facility] 1 CALCIUM S/P/B 9.5 8.7 - 10.3 mg/dL [facility] 1 TOTAL PROTEIN S/P/B 6.5 6.0 - 8.5 g/dL [facility] 1 ALBUMIN S/P/B 4.3 3.8 - 4.8 g/dL [facility] 1 GLOBULIN 2.2 1.5 - 4.5 g/dL [facility] 1 BILIRUBIN TOTAL S/P/B 0.4 0.0 - 1.2 mg/dL [facility] 1 ALKALINE PHOSPHATASE S/P/B 98 49 - 135 IU/L [facility] 1 AST 20 0 - 40 IU/L [facility] 1 ALT 20 0 - 32 IU/L [facility] 1 06/28/2025 10:3 0 AM CDT 06/28/2025 Narrative [facility] - 06/29/2025 8:11 AM CDT Performed at: [address] [place] [id number] Family Practitioner: Patricio Crawford PhD, Phone: [phone] us Mati North DO LABORATORY Final Re sult [facility] [address] [place] [address] [facility] * (ABNORMAL) LIPID PANEL (06/28/2025 10:30 AM CDT) CHOLESTEROL 203(H) 100 - 199 mg/dL [facility] 1 TRIGLYCERIDES 103 0 - 149 mg/dL [facility] 1 HDL 83 >39 mg/dL [facility] 1 VLDL CALCULATION 18 5 - 40 mg/dL [facility] 1 LDL (CALCULATED) 102(H) 0 - 99 mg/dL [facility] 1 06/28/2025 10:3 0 AM CDT 06/28/2025 Narrative [facility] - 06/29/2025 8:11 AM CDT Performed at: - [facility] [address] [id number] Family Practitioner: Patricio Crawford PhD, Phone: [phone] Mati North DO LABORATORY Final Re sult [facility] [address] [place] [address] [facility] * CBC W/DIFF AUTOMATED (06/28/2025 10:30 AM CDT) WBC 7.6 3.4 - 10.8 x10E3/uL [facility] 1 RBC 4.46 3.77 - 5.28 x10E6/uL [facility] 1 HGB 13.9 11.1 - 15.9 g/dL [facility] 1 HCT 41.9 34.0 - 46.6 % [facility] 1 MCV 94 79 - 97 fL [facility] 1 MCH 31.2 26.6 - 33.0 pg [facility] 1 MCHC 33.2 31.5 - 35.7 g/dL [facility] 1 RDW 12.9 11.7 - 15.4 % [facility] 1 PLATELET COUNT 268 150 - 450 x10E3/uL [facility] 1 NEUTROPHILS % 63 Not Estab. % [facility] 1 LYMPHOCYTES % 23 Not Estab. % [facility] 1 MONOCYTES % 11 Not Estab. % [facility] 1 EOSINOPHILS % 1 Not Estab. % [facility] 1 BASOPHILS % 1 Not Estab. % [facility] 1 ABS. NEUTROPHILS 4.8 1.4 - 7.0 x10E3/uL [facility] 1 ABS. LYMPHOCYTES 1.8 0.7 - 3.1 x10E3/uL [facility] 1 MONOCYTES 0.8 0.1 - 0.9 x10E3/uL [facility] 1 ABS. EOSINOPHILS 0.1 0.0 - 0.4 x10E3/uL [facility] 1 ABS. BASOPHILS 0.1 0.0 - 0.2 x10E3/uL [facility] 1 ABS. IMMATURE GRANULOCYTES 1 Not Estab. % [facility] 1 ABS. IMMATURE GRANULOCYTES 0.1 0.0 - 0.1 x10E3/uL [facility] 1 06/28/2025 10:3 0 AM CDT 06/28/2025 Narrative [facility] - 06/29/2025 8:11 AM CDT Performed at: - [facility] [id number] Family Practitioner: Patricio Crawford PhD, Phone: [phone] Mati North DO LABORATORY Final Re sult Performing Organization Address [facility] Co de Phone Number [facility] [address] [place] [address] [facility] * VITAMIN D, 25 OH (06/28/2025 10:30 AM CDT) VITAMIN D 25 HYDROXY S/P/B 36.1 30.0 - 100.0 ng/mL [facility] 1 Comment: Vitamin D deficiency has been defined by the [place] of [employer] and an Endocrine Society practice guideline as a level of serum 25-OH vitamin D less than 20 ng/mL (1,2). The Endocrine Society went on to further define vitamin D insufficiency as a level between 21 and 29 ng/mL (2). 1. IOM ([place] of [employer]). 2010. Dietary reference intakes for calcium and D. [place]: The National Academies Press. 2. Lio MF, Peggy [place], Adrian CRUZ, et al. Evaluation, treatment, and prevention of vitamin D deficiency: an Endocrine Society clinical practice guideline. JCEM. 2010; 96(7):1911-30. 06/28/2025 10:3 0 AM CDT 06/28/2025 Narrative [facility] - 06/29/2025 8:11 AM CDT Performed at: - [facility] [id number] Family Practitioner: Patricio Crawford PhD, Phone: [phone] us Mati North DO LABORATORY Final Re sult Performing Organization Address [facility]/ZIP Co de Phone Number [facility] [address] [place] [address] [facility] * URIC ACID BLOOD (06/28/2025 10:30 AM CDT) URIC ACID 3.3 3.1 - 7.9 mg/dL [facility] 1 Comment:Therapeutic target f or gout patients: <6.0 06/28/2025 10:3 0 AM CDT 06/28/2025 Narrative [facility] - 06/29/2025 8:11 AM CDT Performed at: 01 - [facility] [id number] Family Practitioner: Patricio Crawford PhD, Phone: [phone] Mati North DO LABORATORY Final Re sult [facility] [address] [place] [address] [facility] 1 * ARTHROCENTESIS MAJOR JOINT W/ ULTRASOUND GUIDANCE (06/26/2025 1:00 PM CDT) Say Alba MD - 06/26/2025 1:00 PM CDT Say Gaviria MD 06/26/2025 2:39 PM *Lg Jt Arthrocentesis: bilateral knee Euflexxa injection on 06/26/2025 1:00 PM Indications: pain Details: 22 G needle, ultrasound-guided lateral approach Medications (Right): (2mL Euflexxa injected knee after local anesthesia with 3 cc 2% lidocaine) Medications (Left): (2mL Euflexxa injected knee after local anesthesia with 3 cc 2% lidocaine) Outcome: tolerated well, no immediate complications Procedure, treatment alternatives, risks and benefits explained, specific risks discussed. Consent was given by the patient. Patient was prepped and draped in the usual sterile fashion. Say Gaviria MD PROCEDURE/MINOR SURGICAL ORDERA BLES Final Result * BONE DENSITY/DEXA (08/13/2023 2:01 PM ORNAMENTAL RAIL INSTALLER) Anatomical Region Laterality Modality Bone Mammography 08/13/2023 4:06 PM ORNAMENTAL RAIL INSTALLER Impressions 08/13/2023 4:07 PM ORNAMENTAL RAIL INSTALLER IMPRESSION: 1. WHO Classification: Osteopenia. 2. Interval [...] 08/13/2023 4:06 PM Narrative 08/13/2023 4:07 PM ORNAMENTAL RAIL INSTALLER EXAMINATION: BONE DENSITY/DEXA INDICATIONS: Other specified disorders [...] - 0.9 s/co ratio [facility] 1 Comment: Negative: < 0.8 Indeterminate: 0.8 - 0.9 Positive: > 0.9 HCV antibody alone does not differentiate between previous resolved infection and active infection. The CDC and current clinical guidelines recommend that a positive HCV antibody result be followed up with an HCV RNA test to support the diagnosis of acute HCV infection. [facility] Hepatitis C Virus (HCV) RNA, Diagnosis, RONNELL (609255) and Hepatitis C Virus (HCV) Antibody with reflex to Quantitative Real-time PCR ([id number]). 07/01/2022 11:4 8 AM CDT 07/01/2022 Narrative [facility] - 07/02/2022 8:16 AM CDT Performed at: [address] [place] [id number] Family Practitioner: Patricio Crawford PhD, Phone: [phone] us Mati North DO LABORATORY Final Re sult [facility] [address] [place] [address] [facility] from Last 3 Months or Most Recently Relevant to Health Maintenance Insurance [place] [employer] Advance Directives * Full Code (Latest Code Status on File) Date Activated Date Inactivated Comments 09/30/2021 4:50 PM 09/30/2021 7:26 PM Care Teams Civilian Jail Officer Relationship Specialty Start Date End Date Mati North DO [address] [place] [id number] PCP - General FAMILY PRACTICE 09/24/21 Mati North DO [address] [place] [phone] FAMILY PRACTICE 09/24/21
--- OUTSIDE RECORDS SUMMARY | 2025-07-05 16:51 | XMS_ITS | Encounter Summary ---
Author Organization [facility] Address [address] [place] [address] Care Team Providers Care Counter Supervisor Name Role Phone Manjit Aldridge DO Primary Care Provider + Manjit Aldridge DO Unavailable Encounter Details Date Type Department Care Team (Late st Contact Info) Description 12/09/2021 GlycoPure Message Enc [facility] Medical Group Orthopedic & Sports Medicine - [place] [phone] Patricia, [facility] Provider Gel injection Social History Tobacco [...] Sex Assigned at Female 10/15/2022 9:55 AM SEARCH COORDINATOR Legal Sex Female 4:25 PM SEARCH COORDINATOR Gender Identity Female 10/15/2022 9:55 AM SEARCH COORDINATOR Sexual Orientation Straight 10/15/2022 9: 55 AM SEARCH COORDINATOR COVID-19 Exposure Response Date Recorded In the last 10 days, have emily u been in contact with someone who was confirmed or suspected to have Coronavirus/COVID-19? No / Unsure 12/08/2021 8:58 AM CDT documented as of this encounter Plan of Treatment Upcoming Encounters Date Type Department Care Team (Late st Contact Info) Description 07/10/2025 1:00 PM SEARCH COORDINATOR Office Visit [facility] Medical Group Orthopedic & Sports Medicine - [place] [address] [place] [address] Say Gaviria MD [address] [place] [address] documented as of this encounter Visit Diagnoses Not on filedocumented in this encounter Additional Health Concerns Assessment Noted Time PHQ-9 Depression Total Score: 0 10/08/19 22 2:41 PM SEARCH COORDINATOR documented as of this encounter Care Teams Counter Supervisor Relationship Specialty Start Date End Date Manjit Aldridge DO [address] [place] [id number] PCP - General FAMILY PRACTICE 09/24/21 Manjit Aldridge DO [address] [place] [id number] FAMILY PRACTICE 09/24/21 documented as of this encounter
--- OUTSIDE RECORDS SUMMARY | 2025-07-05 16:51 | XMS_ITS | Encounter Summary ---
Author Organization [facility] Address [address] [place] [address] Care Team Providers Care Income Tax Investigator Name Role Phone aMnjit Aldridge DO Primary Care Provider + Manjit Aldridge DO Unavailable [phone] Encounter Details Date Type Department Care Team (Late st Contact Info) Description 12/17/2022 MyChart Message Enc [facility] Medical Group Family & Internal Medicine [facility] [address] [place] [address] Manjit Aldridge DO [address] [place] [address] Arthritis Social History Tobacco Use [...] Sex Assigned at Female 10/15/2022 9:55 AM PULMONOLOGY TECHNICIAN Legal Sex Female 4:25 PM PULMONOLOGY TECHNICIAN Gender Identity Female 10/15/2022 9:55 AM PULMONOLOGY TECHNICIAN Sexual Orientation Straight 10/15/2022 9: 55 AM PULMONOLOGY TECHNICIAN COVID-19 Exposure Response Date Recorded In the [...] st Contact Info) Description 07/10/2025 1:00 PM PULMONOLOGY TECHNICIAN Office Visit [facility] Medical Group Orthopedic & Sports Medicine - [place] [address] [place] [address] Say Gaviria MD [address] [place] [address] documented as of this encounter Visit Diagnoses Not on filedocumented in this encounter Additional Health Concerns Assessment Noted Time PHQ-9 Depression Total Score: 0 10/08/19 22 2:41 PM PULMONOLOGY TECHNICIAN documented as of this encounter Care Teams Income Tax Investigator Relationship Specialty Start Date End Date Manjit Aldridge DO [address] [place] [id number] PCP - General FAMILY PRACTICE 09/24/21 Manjit Aldridge DO [address] [place] [id number] FAMILY PRACTICE 09/24/21 documented as of this encounter
--- OUTSIDE RECORDS SUMMARY | 2025-07-05 16:51 | XMS_ITS | Clinical Summary ---
Author Organization [facility] Address [address] [id number] Phone Care Team Providers Care Air Chief Marshal Name Role Phone Unavailable Primary Care Provider Unavailabl e Social History Tobacco Use Types Packs/Day Years Used Date Smoking Tobacco: Never Assessed Comments Unknown Sex and Gender Information Value Date Recorded Sex Assigned at Not on file Legal Sex Female 3:51 PM CHICKEN PICKER Gender Identity Not on file Sexual Orientation Not on file Plan of Treatment Health Maintenance Due Date Last Done Comments Hepatitis C Virus (HCV) Screening 1950 TdaP Immunization 1950 Pneumococcal Immunization (50+ years) (1 of 1 - PCV) 1999 Zoster Immunization (1 of 2) 1999 Respiratory Syncytial Virus (RSV) Immunization (Adult) (1 - 1-dose 75+ series) 01/12/2024 Influenza Immunization (#1) 2025 10/0 09/2019, 06/07/2019, 08/26/2016, Additional history exists SARS-COV-2 Immunization ( season) 2025 09/20/2021, 11/29/2020, 11/11/2020 Hepatitis B Immunization Aged Out No longer eligible based on patient's age to complete this topic Human Papillomavirus (HPV) Immunization Aged Out No longer eligible based on patient's age to complete this topic Meningococcal Immunization (ACWY) Aged Out No longer eligible based on patient's age to complete this topic Rotavirus Immunization Aged Out No lo nger eligible based on patient's age to complete this topic
--- OUTSIDE RECORDS SUMMARY | 2025-07-05 16:51 | XMS_ITS | Encounter Summary ---
Author Organization [facility] Address [address] [place] [address] Care Team Providers Care System Support Technician Name Role Phone Manjit Aldridge DO Primary Care Provider + Manjit Aldridge DO Unavailable [phone] Encounter Details Date Type Department Care Team (Late st Contact Info) Description 01/03/2022 MyChart Message Enc [facility] Medical Group Family & Internal Medicine [facility] [address] [place] [address] Manjit Aldridge DO [address] [place] [address] Artritis Social History Tobacco Use [...] Sex Assigned at Female 10/15/2022 9:55 AM WELDING SUPERVISOR Legal Sex Female 4:25 PM WELDING SUPERVISOR Gender Identity Female 10/15/2022 9:55 AM WELDING SUPERVISOR Sexual Orientation Straight 10/15/2022 9: 55 AM WELDING SUPERVISOR COVID-19 Exposure Response Date Recorded In the [...] st Contact Info) Description 07/10/2025 1:00 PM WELDING SUPERVISOR Office Visit [facility] Medical Group Orthopedic & Sports Medicine - [place] [address] [place] [address] Say Gaviria MD [address] [place] [address] documented as of this encounter Visit Diagnoses Not on filedocumented in this encounter Additional Health Concerns Assessment Noted Time PHQ-9 Depression Total Score: 0 10/08/19 22 2:41 PM WELDING SUPERVISOR documented as of this encounter Care Teams System Support Technician Relationship Specialty Start Date End Date Manjit Aldridge DO [address] [place] [phone] PCP - General FAMILY PRACTICE 09/24/21 Manjit Aldridge DO [address] [place] [phone] FAMILY PRACTICE 09/24/21 documented as of this encounter
--- OUTSIDE RECORDS SUMMARY | 2025-07-05 16:51 | XMS_ITS | Encounter Summary ---
Author Organization [facility] Address [address] [place] [address] Care Team Providers Care Asphalt Roller Operator Name Role Phone Manjit Aldridge DO Primary Care Provider + Manjit Aldridge DO Unavailable [phone] Encounter Details Date Type Department Care Team (Late st Contact Info) Description 10/03/2024 MyChart Message Enc [facility] Medical Group Family & Internal Medicine [facility] [address] [place] [address] Manjit Aldridge DO [address] [place] [address] Mammogram Results Social History Tobacco Use Types Packs/Day Years [...] Sex Assigned at Female 10/15/2022 9:55 AM WASHER ASSEMBLER Legal Sex Female 4:25 PM WASHER ASSEMBLER Gender Identity Female 10/15/2022 9:55 AM WASHER ASSEMBLER Sexual Orientation Straight 10/15/2022 9: 55 AM WASHER ASSEMBLER documented as of this encounter Plan of Treatment Upcoming Encounters Date Type Department Care Team (Late st Contact Info) Description 07/10/2025 1:00 PM WASHER ASSEMBLER Office Visit [facility] Medical Group Orthopedic & Sports Medicine - [place] [address] [place] [address] Say Gaviria MD [address] [place] [address] documented as of this encounter Visit Diagnoses Not on filedocumented in this encounter Additional Health Concerns Assessment Noted Time PHQ-9 Depression Total Score: 0 10/08/19 2:41 PM WASHER ASSEMBLER documented as of this encounter Care Teams Asphalt Roller Operator Relationship Specialty Start Date End Date Manjit Aldridge DO [address] [place] [phone] PCP - General FAMILY PRACTICE 09/24/21 Manjit Aldridge DO [address] [place] [phone] FAMILY PRACTICE 09/24/21 documented as of this encounter
--- OUTSIDE RECORDS SUMMARY | 2025-07-05 16:51 | XMS_ITS | Clinical Summary ---
Author Organization [facility] Address [address] [place] [address] Care Team Providers Care Museum Guide Name Role Phone Manijt Aldridge DO Primary Care Provider + Source Comments [facility],non-owned Affiliates and Associated Physician Practices is amultiple site organization consisting of ambulatory clinics and hospital sitesin [place], [place], [place] and [place]. This disclosure is being madepursuant to the Care Everywhere program and may not contain all information available regarding this patient. Last updated [facility] Allergies Active Allergy Reactions Criticality Noted Date Comments Promethazine GI Discomfort,Unknown 06/11/2020 Other reaction(s): Unknown Tramadol GI Discomfort,Unknown 06/11/2020 Other reaction(s): Unknown Medications * Be aware that medications may not be up to date on this document. Alwaysverify current medications with the patient. donepezil (Aricept) 10 MG tablet Take 1 (one) tablet by mouth once daily 3 Active simvastatin (Zocor) 40 MG tablet Take 1 (one) tablet by mouth once daily 3 Active levothyroxine (Synthroid) 88 MCG tablet 3 Active hyoscyamine (Levsin) 0.125 MG IR tablet 4 Active Simethicone (PHAZYME PO)Indications: Polyarthralgia Take 250 mg by mouth Active omeprazole (PriLOSEC) 40 MG capsule TK 1 C PO BID 3 07/02/20 25 Discontinu ed(List Clean-Up) Simethicone (PHAZYME PO) 07/02/20 25 Discontinu ed(List Clean-Up) vitamin D3 (Cholecalcifero l) (10 MCG) 400 UNIT tablet Take 1 (one) tablet by mouth once daily 07/02/20 25 Discontinu ed(List Clean-Up) methylPREDNISol one acetate (DEPO-Medrol) 80 MG/ML injection Inject 1 mL into muscle once 4 07/02/20 25 Discontinu ed(List Clean-Up) oxyBUTYnin (Ditropan) 5 MG tablet Take 1 (one) tablet by mouth 2 times daily 07/02/20 25 Discontinu ed(List Clean-Up) Active Problems Problem Noted Date Diagnosed Date [...] Encounters Date Type Department Care Team Description 07/02/2025 10:40 AM INDUSTRIAL ELECTRICAL TECHNICIAN Office Visit [facility] - Rheumatology [address] [place] [phone] Brayden Sosa MD Kilian, Adam, MD Polyarthralgia (Primary Dx); Bilateral hand pain; Chronic low back pain without sciatica, unspecified back pain laterality; Chronic upper back pain; Chronic pain of both knees 07/02/2025 Travel 04/17/2025 Telephone [facility] - Centralized Scheduling [address] [place] [phone] Cipriano Salas MD Future Appointment 04/16/2025 Telephone [facility] Scheduling [address] [place] [phone] Cipriano Salas MD Appointment 04/12/2025 Telephone [facility] - Rheumatology [address] [place] [phone] Cipriano Salas MD Appointment from Last 3 Months Social History Tobacco Use Types Packs/Day Years Used Date Smoking Tobacco: Never Smokeless Tobacco: Never Tobacco Cessation:Counseling Given: Not Answered Alcohol Use Standard Drinks/Week Comments Never 0 (1 standard drink = 0.6 oz pur e alcohol) PHQ-2 Answer Date Recorded Patient Health Questionnaire-2 Score 2 07/02/2025 Comments No Sex and Gender Information Value Date Recorded Sex Assigned at Not on file Legal Sex Female 5:40 PM INDUSTRIAL ELECTRICAL TECHNICIAN Gender Identity Not on file Sexual Orientation Not on file Last Filed Vital Signs Vital Sign Reading Time Taken Comments Blood Pressure 156/91 07/02/2025 11:11 AM INDUSTRIAL ELECTRICAL TECHNICIAN Pulse 66 07/02/2025 11:11 AM INDUSTRIAL ELECTRICAL TECHNICIAN Temperature 36.4 C (97.5 F) 07/02/2025 11:11 AM INDUSTRIAL ELECTRICAL TECHNICIAN Respiratory Rate 16 12/18/2016 3:04 PM CDT Oxygen Saturation 94% 07/02/2025 11:11 AM INDUSTRIAL ELECTRICAL TECHNICIAN Inhaled Oxygen Concentration - - Weight 82.1 kg (181 lb) 07/02/2025 11:11 AM INDUSTRIAL ELECTRICAL TECHNICIAN Height 152.4 cm (5') 07/02/2025 11:11 AM INDUSTRIAL ELECTRICAL TECHNICIAN Body Mass Index 35.35 07/02/2025 11:11 AM INDUSTRIAL ELECTRICAL TECHNICIAN Plan of Treatment Health Maintenance Due Date Last Done Comments HEPATITIS C SCREENING 01/07/1968 DTAP/TDAP/TD VACCINES (1 - Tdap) 01/12/1968 PNEUMOCOCCAL VACCINE 50+ (1 of 1 - PCV) 1999 ZOSTER VACCINE (1 of 2) 1999 Respiratory Syncytial Virus (RSV) Vaccine Pt: or over 60 yrs (1 - 1-dose 75+ series) 01/12/2024 COVID-19 VACCINE (2024- season) 2025 06/22/2022, 09/20/2021, 11/29/2020, Additional history exists BONE DENSITY TESTING Completed 08/13/2023, 08/04/20 INFLUENZA VACCINE Completed 06/19/2025, , 06/16/2023, Additional history exists DEPRESSION SCREENING Completed 07/02/2025 HEPATITIS B VACCINE Aged Out No longe r eligible based on patient's age to complete this topic HIB VACCINE Aged Out No longer eligi ble based on patient's age to complete this topic HPV VACCINE Aged Out No longer eligi ble based on patient's age to complete this topic MENINGOCOCCAL (Group B) VACCINE SHARED DECISION-MAKING Aged Out No longer eligible based on patient's age to complete this topic MENINGOCOCCAL GROUPS A/C/Y/W VACCINE Aged Out No longer eligible based on patient's age to complete this topic Insurance [facility] Care Teams Museum Guide Relationship Specialty Start Date End Date Manjit Aldridge DO [address] [place] [phone] PCP - General Family Medicine Geriatric Medicine 09/15/24
--- OUTSIDE RECORDS SUMMARY | 2025-07-05 16:51 | XMS_ITS | Encounter Summary ---
Author Organization [facility] Address [address] [place] [address] Care Team Providers Care Grout Machine Tender Name Role Phone Manjit Aldridge DO Primary Care Provider + Manjit Aldridge DO Unavailable [phone] Encounter Details Date Type Department Care Team (Latest Contact Info) Description 07/04/2025 Results Follow-Up [facility] Medical Group Family & Internal Medicine - [place] [address] [place] [address] Manjit Aldridge DO [address] [place] [address] CBC W/DIFF AUTOMATED, COMPREHENSIVE METABOLIC PANEL, HEMOGLOBIN, GLYCOSYLATED, Additional followed-up results: 4 Social History Tobacco Use Types Packs/Day Years [...] Sex Assigned at Female 10/15/2022 9:55 AM STRIKER OFF Legal Sex Female 4:25 PM STRIKER OFF Gender Identity Female 10/15/2022 9:55 AM STRIKER OFF Sexual Orientation Straight 10/15/2022 9: 55 AM STRIKER OFF documented as of this encounter Plan of Treatment Upcoming Encounters Date Type Department Care Team (Late st Contact Info) Description 07/10/2025 1:00 PM STRIKER OFF Office Visit [facility] Medical Group Orthopedic & Sports Medicine - [place] [address] [place] [address] Say Gaviria MD [address] [place] [address] documented as of this encounter Visit Diagnoses Not on filedocumented in this encounter Additional Health Concerns Assessment Noted Time PHQ-9 Depression Total Score: 0 10/08/19 22 2:41 PM STRIKER OFF documented as of this encounter Care Teams Grout Machine Tender Relationship Specialty Start Date End Date Manjit Aldridge DO [address] [place] [phone] PCP - General FAMILY PRACTICE 09/24/21 Manjit Aldridge DO [address] [place] [phone] FAMILY PRACTICE 09/24/21 documented as of this encounter
== END 2025-07-05 07:59 | disposition home or self-care (01) ==
PROVIDERS: PCP Student in an Organized Health Care Education/Training Program; Visit Provider Internal Medicine Cardiovascular Disease
DX: R07.9 Chest pain, unspecified (principal); I10 Essential (primary) hypertension
CPT/HCPCS: 78452; 93017; A9502; J2785